=== PATIENT | female | born 1960 | race Caucasian/White ===

== ENCOUNTER 2019-05-15 00:36 | Emergency (ER) | payer MEDICAID, SELFPAY ==
[2019-05-15 00:40] VITALS: BP 158/103; PULSE 110; RESP 22; TEMP 36.7; O2SAT 97; BMI 20.1
== END 2019-05-15 01:28 | disposition home or self-care (01) ==
LOC: ER 01:10
PROVIDERS: Emergency Provider Family Medicine
DX: Z53.21 Procedure and treatment not carried out due to patient leaving prior to being seen by health care provider (principal)
CPT/HCPCS: 99281

== ENCOUNTER 2019-12-16 17:59 | Emergency (ER) | payer MEDICAID, SELFPAY ==
[2019-12-16 18:14] VITALS: BP 138/89; PULSE 146; RESP 16; TEMP 36.9; O2SAT 96; BMI 19.3
--- NOTE | 2019-12-16 18:17 | ECG_ITS ---
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 Measurements Intervals [place] Rate: 146 P: 85 HI: 120 QRS: 89 QRSD: 81 T: 80 QT: 296 QTc: 462 Interpretive Statements SINUS TACHYCARDIA, POSSIBLE ATRIAL FLUTTER NONSPECIFIC ST & T-WAVE ABNORMALITY ABNORMAL RHYTHM ECG No previous ECG available for comparison Electronically Signed On 12-16-2019 21:08:11 CDT by Tiffanie Mckeon M.D. [id number]
--- NOTE | 2019-12-16 18:17 | XRR_ITS ---
PROCEDURE INFORMATION: Exam: XR Chest, 1 View Exam date and time: 12/16/2019 6:29 PM Age: 59 years old Clinical indication: Shortness of breath; Patient HX: SOB; Additional info: Pe TECHNIQUE: Imaging protocol: XR of the chest Views: 1 view. COMPARISON: CR Ribs RIGHT w PA Chest [id number] 01/17/2019 1:27 PM FINDINGS: Lungs: Emphysematous change and mild interstitial prominence. No acute airspace disease. Pleural space: No pleural effusion. Heart/Mediastinum: No cardiomegaly. Bones/joints: Osteopenia. XR/XR chest 1V portable [id number] IMPRESSION: Emphysematous change and mild interstitial prominence. No acute airspace disease.
--- NOTE | 2019-12-16 18:19 | ED_ITS ---
HPI - Chest Pain General: Chief Complaint: Chest Pain Stated Complaint: chest pain Time Seen by Provider: 12/16/19 18:15 Source: patient Mode of arrival: ambulatory Limitations: no limitations History of Present Illness: HPI narrative: 59-year-old female who has a history of COPD states she has not had a physician in quite some time has not had any of her meds including albuterol. She had increasing productive cough with some bloody sputum and shortness of breath. She states she has felt hot but has not had an actual fever. She has had palpitation and is tachycardic here. She denies any vomiting or diarrhea. She denies any worsening or improving factors at this time. Associated symptoms: Reports dyspnea; Deny abdominal pain, fever(s), nausea or vomiting Review of Systems Const: Denies: fever(s), chills, body aches or change in appetite Eyes: Denies: blurry vision or eye discomfort ENMT: Denies: throat pain or dental pain Card: Denies: chest pain Resp: Reports: dyspnea, productive cough and wheezing GI: Denies: abdominal pain, nausea, vomiting or diarrhea : Denies: dysuria Musc: Denies: neck pain or back pain Skin/Breast: Denies: rash Neuro: Denies: headache(s) Psych: Denies: depression Henry/Lymph: Denies: easy bruising All/Imm: Denies: urticaria PFSH ED PFSH: Social History Smoking and tobacco status: current every day smoker Physical Exam Const: COMMON NORMALS: no acute distress, patient oriented x3 and healthy appearing HENMT: COMMON NORMALS: normocephalic and atraumatic HEAD & SCALP: normocephalic and atraumatic Eye: COMMON NORMALS: Equal, round and reactive pupils present and EOMs intact bilaterally PUPIL: Yes Equal, round and reactive pupils present Neck/C-Spine: COMMON NORMALS: full ROM and supple Chest: COMMONS NORMALS: normal inspection of the chest and normal palpation of entire chest wall Resp: COMMON NORMALS: normal respiratory effort, No retractions and No use of accessory muscles EFFORT & INSPECTION: Yes audible wheezes Cardio: COMMON NORMALS: regular rhythm and No murmurs present (Cardio) RATE: tachycardic RHYTHM: regular rhythm GI: COMMON NORMALS: Normal to inspection, nondistended, normoactive bowel sounds present, Soft to palpation, non-tender and no masses PALPATION: Yes Soft to palpation Extremity: COMMON NORMALS: normal to inspection and full ROM Neuro: COMMON NORMALS: patient oriented x3, moves all extremities and no focal motor deficits Psych: COMMON NORMALS: mental status grossly normal, Normal thought process present and cooperative THOUGHT PROCESS: Normal thought process present Skin: COMMON NORMALS: no rashes or lesions noted and no wounds GENERAL SKIN EXAM: no rashes or lesions noted Course Vital Signs: Vital signs: Vital Signs Temperature 98.0 F 12/16/19 20:44 Pulse Rate 120 H 12/16/19 20:44 Respiratory Rate 20 H 12/16/19 20:44 Blood Pressure 142/82 12/16/19 20:44 Pulse Oximetry 96 12/16/19 20:44 MDM - Chest Pain MDM Narrative: Medical decision making narrative: Patient presents with shortness of breath likely from COPD exacerbation. She has been noncompliant on her meds and still smoking. Will place her on steroids along with Advair. She feels much improved after breathing treatments and is requesting discharge. Her heart rate has improved but she is still bradycardic likely from albuterol. CT scan showed no signs of pneumonia or pulmonary embolism. We will try to get patient a PCP and she is to return if worsening. Lab Data: Labs: Lab Results 12/16/19 12/16/19 12/16/19 Range/Units 18:30 18:30 18:30 WBC 10.0 (4.0-10.0) 10^3/ uL RBC 4.31 (4.1-5.3) 10^6/u L Hgb 15.9 H (11.5-15.3) g/dL Hct 43.9 (37.0-47.0) % MCV 101.9 H (81-99) fL MCH 36.9 H (28.0-34.0) pg MCHC 36.2 H (30.0-36.0) g/dL RDW 11.9 L (12.1-15.1) % Plt Count 215 (130-400) 10^3/c mm MPV 9.9 (7.4-10.4) fL Neut % (Auto) 66.2 % Lymph % (Auto) 26.3 % Lipscomb % (Auto) 4.8 % Eos % (Auto) 1.4 % Baso % (Auto) 1.1 % Neut # (Auto) 6.64 (1.8-7.7) 10^3/u L Lymph # (Auto) 2.6 (0.8-4.8) 10^3/u L Lipscomb # (Auto) 0.5 (0.2-0.9) 10^3/u L Eos # (Auto) 0.1 (0.0-0.8) 10^3/u L Baso # (Auto) 0.1 (0.0-0.1) 10^3/u L Nucleated RBC % (a uto) 0 % Nucleated RBCs # 0.0 /100WBC Sodium 132 L (136-145) mmol/L Potassium 2.9 L (3.5-5.1) mmol/L Chloride 92 L (98-107) mmol/L Carbon Dioxide 26 (22-29) mmol/L Anion Gap 16.9 (5-19) BUN 6 (6-20) mg/dL Creatinine 0.6 (0.5-0.9) mg/dL GFR Calculation 103.0 (90-130) mL/min Glucose 140 H (65-115) mg/dL Calculated Osmolal ity 272 L (285-295) mOsm/k g Calcium 10.8 H (8.5-10.5) mg/dL Total Bilirubin 1.2 (0.15-1.2) mg/dL AST 667 H (0-32) U/L ALT 218 H (0-33) U/L Alkaline Phosphata se 119 H (35-105) IU/L Troponin T Baselin e 6 (0-10) ng/L NT-Pro-B Natriuret Pep 617 H (0-125) pg/mL Total Protein 8.0 (6.6-8.7) g/dL Albumin 5.0 (3.5-5.2) g/dL Globulin 3.0 (1.3-4.6) g/dL Urine Opiates Scre en (Negative) ng/mL Ur Barbiturates Sc reen (Negative) ng/mL Ur Phencyclidine S crn (Negative) ng/mL Ur Amphetamines Sc reen (Negative) ng/mL U Benzodiazepines Scrn (Negative) ng/mL Urine Cocaine Scre en (Negative) ng/mL U Marijuana (THC) Screen (Negative) ng/mL 12/16/19 Range/Units 19:10 WBC (4.0-10.0) 10^3/ uL RBC (4.1-5.3) 10^6/u L Hgb (11.5-15.3) g/dL Hct (37.0-47.0) % MCV (81-99) fL MCH (28.0-34.0) pg MCHC (30.0-36.0) g/dL RDW (12.1-15.1) % Plt Count (130-400) 10^3/c mm MPV (7.4-10.4) fL Neut % (Auto) % Lymph % (Auto) % Lipscomb % (Auto) % Eos % (Auto) % Baso % (Auto) % Neut # (Auto) (1.8-7.7) 10^3/u L Lymph # (Auto) (0.8-4.8) 10^3/u L Lipscomb # (Auto) (0.2-0.9) 10^3/u L Eos # (Auto) (0.0-0.8) 10^3/u L Baso # (Auto) (0.0-0.1) 10^3/u L Nucleated RBC % (a uto) % Nucleated RBCs # /100WBC Sodium (136-145) mmol/L Potassium (3.5-5.1) mmol/L Chloride (98-107) mmol/L Carbon Dioxide (22-29) mmol/L Anion Gap (5-19) BUN (6-20) mg/dL Creatinine (0.5-0.9) mg/dL GFR Calculation (90-130) mL/min Glucose (65-115) mg/dL Calculated Osmolal ity (285-295) mOsm/k g Calcium (8.5-10.5) mg/dL Total Bilirubin (0.15-1.2) mg/dL AST (0-32) U/L ALT (0-33) U/L Alkaline Phosphata se (35-105) IU/L Troponin T Baselin e (0-10) ng/L NT-Pro-B Natriuret Pep (0-125) pg/mL Total Protein (6.6-8.7) g/dL Albumin (3.5-5.2) g/dL Globulin (1.3-4.6) g/dL Urine Opiates Scre en Negative (Negative) ng/mL Ur Barbiturates Sc reen Negative (Negative) ng/mL Ur Phencyclidine S crn Negative (Negative) ng/mL Ur Amphetamines Sc reen Negative (Negative) ng/mL U Benzodiazepines Scrn Negative (Negative) ng/mL Urine Cocaine Scre en Negative (Negative) ng/mL U Marijuana (THC) Screen Negative (Negative) ng/mL Imaging Data^: CT Chest: Radiologist's impression: [facility] [address] [place] [address] CT Scan Report Signed Patient: Susie Bassett Unit #: [id number] : 1960 Age/Sex: 59 / F ADM Date: 12/16/19 Loc: ER Room/Bed: Attending Dr: Ordering Provider/Ordering MD: Radha Youngblood MD Date of Service: 12/16/19 Procedure(s): CT angio chest PE protcl [id number] Accession Number(s): [id number] Report Number: [id number] PROCEDURE INFORMATION: Exam: CT Angiography Chest With Contrast Exam date and time: 12/16/2019 6:34 PM Age: 59 years old Clinical indication: Angina and cough and shortness of breath; Additional info: Pe TECHNIQUE: Imaging protocol: Computed tomographic angiography of the chest with intravenous contrast. 3D rendering: MIP and/or 3D reconstructed images were created by the technologist. Radiation optimization: All CT scans at this facility use at least one of these dose optimization techniques: automated exposure control; mA and/or kV adjustment per patient size (includes targeted exams where dose is matched to clinical indication); or iterative reconstruction. Contrast material: OMNI 350; Contrast volume: 125 ml; Contrast route: INTRAVENOUS (IV); COMPARISON: CR XR chest 1V portable [id number] 12/16/2019 6:21 PM RADIATION DOSE METRICS: Total DLP (mGy-cm): 805.06 FINDINGS: Limitations: Pulmonary artery opacification is somewhat suboptimal due to timing of contrast injection. Pulmonary arteries: There is no evidence of filling defects within the pulmonary arterial circulation to suggest pulmonary embolism. Aorta: Unremarkable. No aortic aneurysm. No aortic dissection. Superior vena cava: There appears to be narrowing of the inferior aspect of the superior vena cava with demonstration of collateral flow via the azygos and dedra azygous veins. Lungs: There is moderate diffuse centrilobular emphysema with an upper lobe predominance. There is mild diffuse bronchial wall thickening in keeping with some chronic bronchitis. Pleural space: Unremarkable. No pneumothorax. No pleural effusion. Heart: Unremarkable. No cardiomegaly. No pericardial effusion. Lymph nodes: Unremarkable. No enlarged lymph nodes. Bones/joints: Unremarkable. No acute fracture. Soft tissues: Unremarkable. CT/CT angio chest PE protcl [id number] IMPRESSION: 1. Mild chronic bronchitis. 2. Centrilobular emphysema. 3. No evidence of pulmonary embolism. 4. Question of stenosis of the superior vena cava. EKG Data^: EKG 1: Attestation: I personally reviewed and interpreted this EKG as follows: EKG interpretation date: 12/16/19 EKG interpretation time: 18:10 Interpretation: sinus tach hr [address] or t wave abnormalities qrs 81 qtc 380 Discharge Plan Discharge Patient Disposition: Home Clinical Impression: COPD exacerbation Condition: Stable Prescriptions: New Keflex 500 mg capsule 500 mg PO Q6H 7 Days Qty: 28 RF: 0 prednisone 50 mg tablet 50 mg PO DAILY Qty: 5 RF: 0 albuterol sulfate 90 mcg/actuation HFA aerosol inhaler 2 inh INHALATION Q6H Qty: 8 RF: 1 Advair Diskus 250-50 mcg/dose blister with device 1 inh INHALATION BID Qty: 60 RF: 1 Spiriva Respimat 2.5 mcg/actuation mist 2 inh INHALATION DAILY Qty: 4 RF: 1 No Action Spiriva Respimat 1.25 mcg/actuation Mist INHALATION RF: 0 Discharge Orders: Discharge Order (Routine); Ordered 12/16/19 Ordered By: Radha Youngblood Discharge Diet: Advance as tolerated Discharge Activity: Resume usual activity Patient Instructions: Chronic Obstructive Pulmonary Disease (ED) Discharge Date/Time: 12/16/19 20:47 Coding Level of Care Code ED Cooking Teacher for Chg Fwd Exam Comprehensive
[2019-12-16] MEDS: ipratropium-albuterol 3 mL Neb INHALATION (18:39)
[2019-12-16 18:44] VITALS: PULSE 138; RESP 22; O2SAT 96
[2019-12-16 18:49] VITALS: BP 152/100; PULSE 142; PULSE 144; RESP 22; RESP 24; O2SAT 95; O2SAT 96
[2019-12-16 18:50] LABS: Basophils # 0.1 10^3/uL (0.0-0.1); Basophils % 1.1 %; Eosinophils # 0.1 10^3/uL (0.0-0.8); Eosinophils % 1.4 %; Hematocrit 43.9 % (37.0-47.0); Hemoglobin 15.9 g/dL (11.5-15.3); Lymphocytes # 2.6 10^3/uL (0.8-4.8); Lymphocytes % 26.3 %; Mean Corpuscular HGB Conc 36.2 g/dL (30.0-36.0); Mean Corpuscular Hemoglobin 36.9 pg (28.0-34.0); Mean Corpuscular Volume 101.9 fL (81-99); Mean Platelet Volume 9.9 fL (7.4-10.4); Monocytes # 0.5 10^3/uL (0.2-0.9); Monocytes % 4.8 %; Neutrophils # 6.64 10^3/uL (1.8-7.7); Neutrophils % 66.2 %; Nucleated Red Blood Cells % 0 %; Platelet Count 215 10^3/cmm (130-400); Red Blood Count 4.31 10^6/uL (4.1-5.3); Red Cell Distribution Width 11.9 % (12.1-15.1)
[2019-12-16] MEDS: iohexol 350 mg/mL 100 mL Btl 60 ML IV (19:03)
[2019-12-16] MEDS: iohexol 350 mg/mL 100 mL Btl 65 ML IV (19:04)
[2019-12-16] MEDS: sodium chloride 0.9% 1,000 ML 999 ML IV (19:10)
[2019-12-16 19:18] VITALS: BP 156/101; PULSE 148; RESP 24; O2SAT 98
[2019-12-16 19:22] LABS: Alanine Aminotransferase 218 U/L (0-33); Alkaline Phosphatase 119 IU/L (35-105); Anion Gap 16.9 (5-19); Aspartate Amino Transferase 667 U/L (0-32); Blood Urea Nitrogen 6 mg/dL (6-20); Calcium 10.8 mg/dL (8.5-10.5); Carbon Dioxide 26 mmol/L (22-29); Chloride 92 mmol/L (98-107); Glucose 140 mg/dL (65-115); NT Pro B Type Natriuretic Pept 617 pg/mL (0-125); Osmolality Calculated 272 mOsm/kg (285-295); Sodium 132 mmol/L (136-145); Total Bilirubin 1.2 mg/dL (0.15-1.2)
[2019-12-16 19:28] LABS: Potassium 2.9 mmol/L (3.5-5.1)
[2019-12-16] MEDS: LORazepam 2 mg/mL INJ 1 mL 1 MG IVP (19:37)
--- NOTE | 2019-12-16 19:37 | PC.NURSE ---
lab called critical potassium 2.9, Notified Dr. Youngblood
[2019-12-16] MEDS: potassium chloride ER 10 mEq Tablet 40 MEQ PO (19:40)
[2019-12-16 19:51] LABS: Amphetamines Screen Urine Negative (Negative); Barbiturates Screen Urine Negative (Negative); Benzodiazepines Screen Urine Negative (Negative); Cocaine Screen Urine Negative (Negative); Opiate Screen Urine Negative (Negative); PCP Screen Urine Negative (Negative); THC Screen Urine Negative (Negative)
[2019-12-16 19:57] LABS: Troponin(5th) Baseline 6 ng/L (0-10)
[2019-12-16 20:44] VITALS: BP 142/82; PULSE 120; RESP 20; TEMP 36.7; O2SAT 96
--- NOTE | 2019-12-16 20:45 | PC.NURSE ---
send out Covid test sent to lab
[2019-12-18 20:56] LABS: Quest SARS-CoV-2 RNA NOT DETECTED (NOT DETECTED)
--- NOTE | 2019-12-20 12:14 | DCPLANNER ---
community engagement manager had message to speak with patient about getting established with a primary care physician. community engagement manager called [phone], unable to speak with patient, a voice mail was left for patient to return counter caser phone call.
== END 2019-12-16 20:47 | disposition home or self-care (01) ==
PROVIDERS: Emergency Provider Emergency Medicine
DX: J44.1 Chronic obstructive pulmonary disease with (acute) exacerbation (principal); F17.210 Nicotine dependence, cigarettes, uncomplicated
CPT/HCPCS: 12345; 71045; 71275; 80053; 80306; 83880; 84484; 85025; 87635; 93005; 94640; 96361; 96374; 96375; 99283; 99284; J2060; J2930; J7030; J7611; Q9967

== ENCOUNTER 2020-05-18 08:27 | Emergency (ER) | payer MEDICAID, SELFPAY ==
[2020-05-18] VITALS (42 sets, daily range): BP systolic 162–194; BP diastolic 104–152; PULSE 88–144; RESP 15–25; TEMP 36.2; O2SAT 96–100; BMI 20.4
--- NOTE | 2020-05-18 09:15 | XR_ITS ---
WS: [id number] PORTABLE CHEST HISTORY: dyspnea/cough COMPARISON: 12/16/2019 Lungs are clear and well expanded. No pleural effusion or pneumothorax. Cardiac size: Normal. Mediastinum/Aorta: Mild atherosclerosis aorta. No osseous abnormality seen. XR/XR chest 1V portable [id number] IMPRESSION: Unremarkable portable chest.
--- NOTE | 2020-05-18 09:15 | ECG_ITS ---
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 Measurements Intervals [place] Rate: 144 P: 81 AL: 117 QRS: 78 QRSD: 85 T: 77 QT: 291 QTc: 451 Interpretive Statements SINUS TACHYCARDIA WITH SHORT AL INTERVAL, POSSIBLE ATRIAL FLUTTER NONSPECIFIC ST & T-WAVE ABNORMALITY ABNORMAL RHYTHM ECG Compared to ECG 12/16/2019 18:10:49 No significant changes Electronically Signed On 05-18-2020 20:43:20 DAIRY SUPPLIES SALES REPRESENTATIVE by Tuyet Jason M.D. [id number] f
--- NOTE | 2020-05-18 09:25 | W.ED.GENADLT ---
HPI - General Adult General: Chief complaint: General Medical Stated complaint: DIZZINESS, EXCEEDING HEART RATE, SOB Time Seen by Provider: 05/18/20 09:14 History of Present Illness: HPI narrative: 59-year-old female comes in complaining of rapid heart rate generally not feeling well epigastric discomfort. She has been drinking heavily for the last 3 days it. She denies any hematochezia melena hematemesis coffee-ground emesis. She has been lightheaded and dizzy. She denies having any chest pain. She not previously had a history of atrial fibrillation. She does have a history of severe COPD and continues to smoke. Onset (ago): day(s) Relieving factors: none Exacerbating factors: none Associated symptoms: Reports decreased appetite, dyspnea, malaise, nausea, palpitations, short of breath, vomiting and weakness; Deny chest pain, confusion, cough, diaphoresis, fevers/chills, headache(s), rash, seizures or syncope Treatments prior to arrival: none Review of Systems Const: Reports: malaise; Denies: diaphoresis ENMT: Denies: throat pain, ear or mastoid pain, nasal discharge or nasal congestion Card: Reports: palpitations; Denies: chest pain or syncope Resp: Reports: dyspnea GI: Reports: nausea and vomiting : Denies: flank pain, difficulty voiding, dysuria, urinary frequency or urinary urgency Skin/Breast: Denies: rash Neuro: Denies: headache(s) or confusion PFS ED PFSH: Social History Smoking and tobacco status: current every day smoker Physical Exam Const: COMMON NORMALS: no acute distress GENERAL APPEARANCE: cooperative and comfortable ORIENTATION/CONSCIOUSNESS: Yes awake, Yes oriented to person, Yes oriented to place and Yes oriented to time HENMT: COMMON NORMALS: normocephalic, atraumatic and hearing grossly normal bilaterally HEAD & SCALP: normocephalic and atraumatic Resp: COMMON NORMALS: normal respiratory effort, No retractions, No use of accessory muscles and clear to auscultation bilaterally AUSCULTATION: clear to auscultation bilaterally Cardio: COMMON NORMALS: regular rhythm RATE: tachycardic RHYTHM: regular rhythm GI: COMMON NORMALS: Soft to palpation and No hepatosplenomegaly present AUSCULTATION: Yes normoactive bowel sounds PALPATION: Yes Soft to palpation, No Tenderness to palpation present (GI), No Guarding due to palpation present (GI) and Yes No hepatosplenomegaly present Extremity: COMMON NORMALS: normal to inspection, capillary refill normal, no clubbing, cyanosis or edema, no calf tenderness and no pedal edema Neuro: SENSORIUM/ORIENTATION: Yes oriented to person, Yes oriented to place and Yes oriented to time Skin: COMMON NORMALS: no rashes or lesions noted GENERAL SKIN EXAM: no rashes or lesions noted Course Vital Signs: Vital signs: Vital Signs Temperature 97.1 F L 05/18/20 09:10 Pulse Rate 105 H 05/18/20 14:56 Respiratory Rate 22 H 05/18/20 14:56 Blood Pressure 162/122 05/18/20 14:56 Pulse Oximetry 98 05/18/20 14:56 MDM - General Adult MDM Narrative: Medical decision making narrative: Patient positive for methamphetamines and alcohol heart rate resolved with beta-enrique blood pressure is stable and improved she is feeling much better after fluids and discharge home start on omeprazole also metoprolol and amlodipine follow-up with your primary care doctor return if has further problems should recheck within a week to get your blood pressure reevaluated Lab Data: Labs: Lab Results 05/18/20 05/18/20 05/18/20 Range/Units 09:50 09:50 09:50 WBC 6.6 (4.0-10.0) 10^3/ uL RBC 3.99 L (4.1-5.3) 10^6/u L Hgb 14.4 (11.5-15.3) g/dL Hct 40.4 (37.0-47.0) % MCV 101.3 H (81-99) fL MCH 36.1 H (28.0-34.0) pg MCHC 35.6 (30.0-36.0) g/dL RDW 12.1 (12.1-15.1) % Plt Count 164 (130-400) 10^3/c mm MPV 9.8 (7.4-10.4) fL Neut % (Auto) 64.0 % Lymph % (Auto) 24.9 % Greene % (Auto) 8.2 % Eos % (Auto) 1.2 % Baso % (Auto) 1.5 % Neut # (Auto) 4.21 (1.8-7.7) 10^3/u L Lymph # (Auto) 1.6 (0.8-4.8) 10^3/u L Greene # (Auto) 0.5 (0.2-0.9) 10^3/u L Eos # (Auto) 0.1 (0.0-0.8) 10^3/u L Baso # (Auto) 0.1 (0.0-0.1) 10^3/u L Nucleated RBC % (a uto) 0 % Nucleated RBCs # 0.0 /100WBC Sodium 133 L (136-145) mmol/L Potassium 3.0 L (3.5-5.1) mmol/L Chloride 94 L (98-107) mmol/L Carbon Dioxide 23 (22-29) mmol/L Anion Gap 19.0 (5-19) BUN 4 L (6-20) mg/dL Creatinine 0.6 (0.5-0.9) mg/dL GFR Calculation 103.0 (90-130) mL/min Glucose 168 H (65-115) mg/dL Calculated Osmolal ity 277 L (285-295) mOsm/k g Calcium 9.4 (8.5-10.5) mg/dL Magnesium 1.2 L (1.7-2.3) mg/dL Total Bilirubin 0.9 (0.15-1.2) mg/dL AST 298 H (0-32) U/L ALT 244 H (0-33) U/L Alkaline Phosphata se 101 (35-105) IU/L Creatine Kinase 270 H (26-192) U/L Troponin T Baselin e 7 (0-10) ng/L Troponin T [address] [place] (0-10) ng/L Delta Troponin T (0-10) ABS# Total Protein 8.0 (6.6-8.7) g/dL Albumin 4.8 (3.5-5.2) g/dL Globulin 3.2 (1.3-4.6) g/dL Urine Opiates Scre en (Negative) ng/mL Ur Barbiturates Sc reen (Negative) ng/mL Ur Phencyclidine S crn (Negative) ng/mL Ur Amphetamines Sc reen (Negative) ng/mL U Benzodiazepines Scrn (Negative) ng/mL Urine Cocaine Scre en (Negative) ng/mL U Marijuana (THC) Screen (Negative) ng/mL Ethyl Alcohol < 10 (0-10) mg/dL 05/18/20 05/18/20 Range/Units 10:31 12:09 WBC (4.0-10.0) 10^3/ uL RBC (4.1-5.3) 10^6/u L Hgb (11.5-15.3) g/dL Hct (37.0-47.0) % MCV (81-99) fL MCH (28.0-34.0) pg MCHC (30.0-36.0) g/dL RDW (12.1-15.1) % Plt Count (130-400) 10^3/c mm MPV (7.4-10.4) fL Neut % (Auto) % Lymph % (Auto) % Greene % (Auto) % Eos % (Auto) % Baso % (Auto) % Neut # (Auto) (1.8-7.7) 10^3/u L Lymph # (Auto) (0.8-4.8) 10^3/u L Greene # (Auto) (0.2-0.9) 10^3/u L Eos # (Auto) (0.0-0.8) 10^3/u L Baso # (Auto) (0.0-0.1) 10^3/u L Nucleated RBC % (a uto) % Nucleated RBCs # /100WBC Sodium (136-145) mmol/L Potassium (3.5-5.1) mmol/L Chloride (98-107) mmol/L Carbon Dioxide (22-29) mmol/L Anion Gap (5-19) BUN (6-20) mg/dL Creatinine (0.5-0.9) mg/dL GFR Calculation (90-130) mL/min Glucose (65-115) mg/dL Calculated Osmolal ity (285-295) mOsm/k g Calcium (8.5-10.5) mg/dL Magnesium (1.7-2.3) mg/dL Total Bilirubin (0.15-1.2) mg/dL AST (0-32) U/L ALT (0-33) U/L Alkaline Phosphata se (35-105) IU/L Creatine Kinase (26-192) U/L Troponin T Baselin e (0-10) ng/L Troponin T [address] [place] 6.95 (0-10) ng/L Delta Troponin T -0.05 L (0-10) ABS# Total Protein (6.6-8.7) g/dL Albumin (3.5-5.2) g/dL Globulin (1.3-4.6) g/dL Urine Opiates Scre en Negative (Negative) ng/mL Ur Barbiturates Sc reen Negative (Negative) ng/mL Ur Phencyclidine S crn Negative (Negative) ng/mL Ur Amphetamines Sc reen Positive H (Negative) ng/mL U Benzodiazepines Scrn Negative (Negative) ng/mL Urine Cocaine Scre en Negative (Negative) ng/mL U Marijuana (THC) Screen Positive H (Negative) ng/mL Ethyl Alcohol (0-10) mg/dL Discharge Plan Discharge Patient Disposition: Home Clinical Impression: HTN (hypertension), Alcohol abuse, GERD (gastroesophageal reflux disease) Condition: Stable Prescriptions: New omeprazole 40 mg capsule,delayed release(DR/EC) 40 mg PO DAILY Qty: 30 RF: 0 metoprolol succinate 25 mg tablet extended release 24 hr 25 mg PO DAILY Qty: 30 RF: 0 amlodipine 5 mg tablet 5 mg PO DAILY Qty: 30 RF: 0 No Action fluticasone propion-salmeterol [Advair Diskus] 250-50 mcg/dose blister with device 1 inh INHALATION BID Qty: 60 RF: 1 Tylenol Extra Strength 500 mg Tablet 1,000 mg PO PRN RF: 0 Spiriva with HandiHaler 18 mcg capsule, w/inhalation device 1 cap INHALATION QAM RF: 0 albuterol sulfate 90 mcg/actuation HFA aerosol inhaler 2 inh INHALATION Q6H PRN (Reason: Shortness Of Breath) RF: 0 Discharge Orders: Discharge ED (Routine); Ordered 05/18/20 Ordered By: Saturnino Slaughter Discharge Diet: Usual diet Discharge Activity: Increase activity as tolerated Patient Instructions: Alcohol Abuse Coding Level of Care Code ED Revenue Audit Clerk for Cathy Donald
[2020-05-18] MEDS: famotidine 20 mg/2 mL INJ 40 MG IVP (10:00)
[2020-05-18 10:16] LABS: Basophils # 0.1 10^3/uL (0.0-0.1); Basophils % 1.5 %; Eosinophils # 0.1 10^3/uL (0.0-0.8); Eosinophils % 1.2 %; Hematocrit 40.4 % (37.0-47.0); Hemoglobin 14.4 g/dL (11.5-15.3); Lymphocytes # 1.6 10^3/uL (0.8-4.8); Lymphocytes % 24.9 %; Mean Corpuscular HGB Conc 35.6 g/dL (30.0-36.0); Mean Corpuscular Hemoglobin 36.1 pg (28.0-34.0); Mean Corpuscular Volume 101.3 fL (81-99); Mean Platelet Volume 9.8 fL (7.4-10.4); Monocytes # 0.5 10^3/uL (0.2-0.9); Monocytes % 8.2 %; Neutrophils # 4.21 10^3/uL (1.8-7.7); Nucleated Red Blood Cells % 0 %; Platelet Count 164 10^3/cmm (130-400); Red Blood Count 3.99 10^6/uL (4.1-5.3); Red Cell Distribution Width 12.1 % (12.1-15.1); White Blood Count 6.6 10^3/uL (4.0-10.0)
[2020-05-18] MEDS: folic acid 1 MG, multivitamin inj 10 ML, thiamine 100 MG in sodium chloride 0.9% 1,000 ML 252.8 MG IV (10:35)
[2020-05-18 10:39] LABS: Alanine Aminotransferase 244 U/L (0-33); Albumin Level 4.8 g/dL (3.5-5.2); Alkaline Phosphatase 101 IU/L (35-105); Aspartate Amino Transferase 298 U/L (0-32); Blood Urea Nitrogen 4 mg/dL (6-20); Calcium 9.4 mg/dL (8.5-10.5); Carbon Dioxide 23 mmol/L (22-29); Chloride 94 mmol/L (98-107); Creatine Phosphokinase 270 U/L (26-192); Globulin 3.2 g/dL (1.3-4.6); Glucose 168 mg/dL (65-115); Magnesium 1.2 mg/dL (1.7-2.3); Osmolality Calculated 277 mOsm/kg (285-295); Sodium 133 mmol/L (136-145); Total Bilirubin 0.9 mg/dL (0.15-1.2)
[2020-05-18 10:40] LABS: Alcohol Level < 10 mg/dL (0-10); Troponin(5th) Baseline 7 ng/L (0-10)
[2020-05-18 10:47] LABS: Amphetamines Screen Urine Positive (Negative); Barbiturates Screen Urine Negative (Negative); Benzodiazepines Screen Urine Negative (Negative); Cocaine Screen Urine Negative (Negative); Opiate Screen Urine Negative (Negative); PCP Screen Urine Negative (Negative); THC Screen Urine Positive (Negative)
[2020-05-18] MEDS: magnesium sulfate premix 2 GM/50 ML PIGGYBACK IV (11:07)
[2020-05-18] MEDS: sodium chloride 0.9% 1,000 ML 999 ML IV ×2 (11:07→13:09)
[2020-05-18] MEDS: potassium chloride oral liq 20 mEq/15 mL UDC 40 MEQ PO (11:08)
--- NOTE | 2020-05-18 11:15 | ECG_ITS ---
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 Measurements Intervals [place] Rate: 121 P: 76 VT: 156 QRS: 74 QRSD: 94 T: 49 QT: 315 QTc: 448 Interpretive Statements SINUS TACHYCARDIA Compared to ECG 05/18/2020 09:08:51 T-wave abnormality no longer present Electronically Signed On 05-18-2020 21:30:34 GUEST SERVICES OFFICER by Tuyet Jason M.D. [id number]
[2020-05-18 12:57] LABS: Troponin 5 2HR 6.95 ng/L (0-10)
[2020-05-18 12:58] LABS: Troponin 5 2HR Delta -0.05 ABS# (0-10)
[2020-05-18] MEDS: metoprolol tartrate 25 mg Tablet PO (13:14)
== END 2020-05-18 14:59 | disposition home or self-care (01) ==
PROVIDERS: Emergency Provider Family Medicine
DX: I10 Essential (primary) hypertension (principal); K21.9 Gastro-esophageal reflux disease without esophagitis; F10.10 Alcohol abuse, uncomplicated; F17.210 Nicotine dependence, cigarettes, uncomplicated
CPT/HCPCS: 12345; 36415; 71045; 80053; 80306; 80307; 82550; 83735; 84484; 85025; 93005; 96361; 96365; 96375; 99283; 99284; J3411; J3475; J3490; J7030

== ENCOUNTER 2021-05-17 01:21 | Emergency (ER) | payer MEDICAID, SELFPAY ==
[2021-05-17 01:29] VITALS: BP 138/82; PULSE 121; RESP 22; TEMP 36.6; O2SAT 96; BMI 22.4
--- NOTE | 2021-05-17 01:36 | XRR_ITS ---
PROCEDURE INFORMATION: Exam: XR Chest Exam date and time: 05/17/2021 1:36 AM Age: 60 years old Clinical indication: Shortness of breath; Patient HX: C/O SOB. History of copd. TECHNIQUE: Imaging protocol: XR of the chest. Views: 1 view. COMPARISON: CR XR chest 1V portable [id number] 05/18/2020 9:48 AM FINDINGS: Lungs: Right discoid atelectasis and/or scarring. Pleural spaces: Unremarkable. No pleural effusion. No pneumothorax. Heart/Mediastinum: Unremarkable. No cardiomegaly. Vasculature: Calcification of the thoracic aorta and/or great vessels consistent with atherosclerotic vessel disease. Bones/joints: Minimal S shaped scoliosis. XR/XR chest 1V portable [id number] IMPRESSION: Stable COPD .
--- NOTE | 2021-05-17 01:41 | ED_ITS ---
HPI - Abdominal Pain General: Chief Complaint: Abdominal Pain Stated Complaint: Cant Control Body Functions Time Seen by Provider: 05/17/21 01:25 Source: patient Mode of arrival: ambulatory Limitations: no limitations History of Present Illness: HPI narrative: 60-year-old female states she has hepatitis C about a 10-year history. She states she has not been following with anybody has had increased abdominal ascites over the last few months. She states has been worsening does not a PCP and wanted to get it checked out. States she has some very slight pain does have quite a bit of distention. She denies any fever states she is also had some cough denies any shortness of breath denies any worsening improving factors patient is a daily drinker states she has roughly 4-5 shots of whiskey a day. Associated Symptoms: Denies chills, dysuria and fever(s) Review of Systems Const: Denies: fever(s), chills, body aches or change in appetite Eyes: Denies: blurry vision or eye discomfort ENMT: Denies: throat pain or dental pain Card: Denies: chest pain Resp: Reports: non-productive cough GI: Reports: abdominal pain : Denies: dysuria Musc: Denies: neck pain or back pain Skin/Breast: Denies: rash Neuro: Denies: headache(s) Psych: Denies: depression Henry/Lymph: Denies: easy bruising All/Imm: Denies: urticaria PFSH ED PFSH: Social History Smoking and tobacco status: current every day smoker Physical Exam Const: COMMON NORMALS: no acute distress, patient oriented x3 and healthy appearing HENMT: COMMON NORMALS: normocephalic and atraumatic HEAD & SCALP: normocephalic and atraumatic Eye: COMMON NORMALS: Equal, round and reactive pupils present and EOMs intact bilaterally PUPIL: Yes Equal, round and reactive pupils present Neck/C-Spine: COMMON NORMALS: full ROM and supple Chest: COMMONS NORMALS: normal inspection of the chest and normal palpation of entire chest wall Resp: COMMON NORMALS: normal respiratory effort, No retractions, No use of accessory muscles and clear to auscultation bilaterally AUSCULTATION: clear to auscultation bilaterally Cardio: COMMON NORMALS: regular rate, regular rhythm and No murmurs present (Cardio) RATE: regular rate RHYTHM: regular rhythm GI: COMMON NORMALS: Soft to palpation, non-tender and no masses INSPECTION: Yes abdominal distension PALPATION: Yes Soft to palpation, No Tenderness to palpation present (GI) and Yes Ascites present Extremity: COMMON NORMALS: normal to inspection and full ROM Neuro: COMMON NORMALS: patient oriented x3, moves all extremities and no focal motor deficits Psych: COMMON NORMALS: mental status grossly normal, Normal thought process present and cooperative THOUGHT PROCESS: Normal thought process present Skin: COMMON NORMALS: no rashes or lesions noted and no wounds GENERAL SKIN EXAM: no rashes or lesions noted Course Vital Signs: Vital signs: Vital Signs Temperature 98.3 F 05/17/21 01:54 Pulse Rate 113 H 05/17/21 01:54 Respiratory Rate 22 H 05/17/21 01:29 Blood Pressure 140/76 05/17/21 01:54 Pulse Oximetry 96 05/17/21 01:54 MDM - Abdominal Pain MDM Narrative: Medical decision making narrative: Patient presents here with ascites does not have any signs of spontaneous bacterial peritonitis does not require emergent paracentesis she is well-appearing here abdominal exam here is benign no tenderness we will get her follow-up with Dr. Dumont along with outpatient drainage of her ascites she is hypokalemic we will start her on potassium she is stable for discharge and follow-up with PCP and return if worsening. Lab Data: Labs: Lab Results 05/17/21 05/17/21 01:50 02:45 WBC 13.0 10^3/uL H 10 ^3/uL (4.0-10.0) RBC 4.03 10^6/uL L 10 ^6/uL (4.1-5.3) Hgb 14.1 g/dL g/dL (11.5-15.3) Hct 38.8 % % (37.0-47.0) MCV 96.3 fl fl (81-99) MCH 35.0 pg H pg (28.0-34.0) MCHC 36.3 g/dL H g/dL (30.0-36.0) RDW 14.9 % % (12.1-15.1) Plt Count 178 10^3/cmm 10^3 /cmm (130-400) MPV 10.5 fL H fL (7.4-10.4) Neut % (Auto) 53.2 % % Lymph % (Auto) 36.1 % % [place] % (Auto) 7.1 % % Eos % (Auto) 2.1 % % Baso % (Auto) 1.3 % % Neut # (Auto) 6.93 10^3/uL 10^3 /uL (1.8-7.7) Lymph # (Auto) 4.7 10^3/uL 10^3/ uL (0.8-4.8) [place] # (Auto) 0.9 10^3/uL 10^3/ uL (0.2-0.9) Eos # (Auto) 0.3 10^3/uL 10^3/ uL (0.0-0.8) Baso # (Auto) 0.2 10^3/uL H 10^ 3/uL (0.0-0.1) Nucleated RBC % (a uto) 0 % % Nucleated RBCs # 0.0 /100WBC /100W BC Sodium 140 mmol/L mmol/L (136-145) Potassium 2.8 mmol/L L* mmo l/L (3.5-5.1) Chloride 103 mmol/L mmol/L (98-107) Carbon Dioxide 25 mmol/L mmol/L (22-29) Anion Gap 14.8 (5-19) BUN 3 mg/dL L mg/dL (6-20) Creatinine 0.5 mg/dL mg/dL (0.5-0.9) GFR Calculation 126.7 mL/min mL/m in (90-130) Glucose 133 mg/dL H mg/dL (65-115) Calculated Osmolal ity 288 mOsm/kg mOsm/ kg (285-295) Calcium 7.8 mg/dL L mg/dL (8.5-10.5) Total Bilirubin 0.9 mg/dL mg/dL (0.15-1.2) AST 167 U/L H U/L (0-32) ALT 48 U/L H U/L (0-33) Alkaline Phosphata se 133 IU/L H IU/L (35-105) Total Protein 7.5 g/dL g/dL (6.6-8.7) Albumin 3.5 g/dL g/dL (3.5-5.2) Globulin 4.0 g/dL g/dL (1.3-4.6) Lipase 51 U/L U/L (13-60) Ethyl Alcohol 293 mg/dL H mg/dL (0-10) Discharge Plan Discharge Patient Disposition: Home Clinical Impression: Hypokalemia Ascites Qualifiers: Ascites type: other type Qualified Code(s): R18.8 - Other ascites Hepatitis C Qualifiers: Viral hepatitis chronicity: chronic Hepatic coma status: without hepatic coma Qualified Code(s): B18.2 - Chronic viral hepatitis C Condition: Stable Prescriptions: New potassium chloride 40 mEq/15 mL liquid 40 meq PO BID 5 Days Qty: 150 RF: 0 No Action fluticasone propion-salmeterol [Advair Diskus] 250-50 mcg/dose blister with device 1 inh INHALATION BID Qty: 60 RF: 1 Tylenol Extra Strength 500 mg Tablet 1,000 mg PO PRN RF: 0 Spiriva with HandiHaler 18 mcg capsule, w/inhalation device 1 cap INHALATION QAM RF: 0 albuterol sulfate 90 mcg/actuation HFA aerosol inhaler 2 inh INHALATION Q6H PRN (Reason: Shortness Of Breath) RF: 0 omeprazole 40 mg capsule,delayed release(DR/EC) 40 mg PO DAILY Qty: 30 RF: 0 metoprolol succinate 25 mg tablet extended release 24 hr 25 mg PO DAILY Qty: 30 RF: 0 amlodipine 5 mg tablet 5 mg PO DAILY Qty: 30 RF: 0 Discharge Orders: Discharge ED (Routine); Ordered 05/17/21 Ordered By: Radha Youngblood Referrals: Tha Dumont MD [Physician] - 1-3 days Discharge Diet: Advance as tolerated Discharge Activity: Resume usual activity Patient Instructions: Ascites (ED) Coding Level of Care Code ED Occupational Health Technician for Chg Fwd Exam Comprehensive
[2021-05-17] MEDS: sodium chloride 0.9% 1,000 ML 999 ML IV (01:49)
[2021-05-17 01:54] VITALS: BP 140/76; PULSE 113; TEMP 36.8; O2SAT 96
[2021-05-17 02:16] LABS: Basophils # 0.2 10^3/uL (0.0-0.1); Basophils % 1.3 %; Eosinophils # 0.3 10^3/uL (0.0-0.8); Eosinophils % 2.1 %; Hematocrit 38.8 % (37.0-47.0); Hemoglobin 14.1 g/dL (11.5-15.3); Lymphocytes # 4.7 10^3/uL (0.8-4.8); Lymphocytes % 36.1 %; Mean Corpuscular HGB Conc 36.3 g/dL (30.0-36.0); Mean Corpuscular Volume 96.3 fl (81-99); Mean Platelet Volume 10.5 fL (7.4-10.4); Monocytes # 0.9 10^3/uL (0.2-0.9); Monocytes % 7.1 %; Neutrophils # 6.93 10^3/uL (1.8-7.7); Neutrophils % 53.2 %; Nucleated Red Blood Cells % 0 %; Platelet Count 178 10^3/cmm (130-400); Red Blood Count 4.03 10^6/uL (4.1-5.3); Red Cell Distribution Width 14.9 % (12.1-15.1)
[2021-05-17 02:28] LABS: Albumin Level 3.5 g/dL (3.5-5.2); Carbon Dioxide 25 mmol/L (22-29); Glomerular Filtration Rate 126.7 mL/min (90-130); Lipase 51 U/L (13-60); Total Bilirubin 0.9 mg/dL (0.15-1.2); Total Protein 7.5 g/dL (6.6-8.7)
--- NOTE | 2021-05-17 02:37 | PC.NURSE ---
bedside report received. bed low and locked, side rail up. NAD
[2021-05-17 03:11] LABS: Alanine Aminotransferase 48 U/L (0-33); Anion Gap 14.8 (5-19); Aspartate Amino Transferase 167 U/L (0-32)
[2021-05-17 03:12] LABS: Sodium 140 mmol/L (136-145)
[2021-05-17 03:13] LABS: Chloride 103 mmol/L (98-107); Potassium 2.8 mmol/L (3.5-5.1)
[2021-05-17 03:14] LABS: Alcohol Level 293 mg/dL (0-10); Alkaline Phosphatase 133 IU/L (35-105); Blood Urea Nitrogen 3 mg/dL (6-20); Calcium 7.8 mg/dL (8.5-10.5); Glucose 133 mg/dL (65-115); Osmolality Calculated 288 mOsm/kg (285-295)
[2021-05-17] MEDS: potassium chloride ER 20 mEq Tablet 40 MEQ PO (03:23)
[2021-05-17 03:24] VITALS: BP 131/99; PULSE 110; RESP 18; TEMP 36.8; O2SAT 96
[2021-05-17 03:27] LABS: Urine Color Yellow (Yellow)
[2021-05-17 03:28] LABS: Add Urine Microscopic? YES; Bilirubin Urine Neg (Negative); Blood Urine Neg (Negative); Glucose Urine UA Norm (Normal); Ketones Urine Negative (Negative); Leukocyte Esterase Urine Negative (Negative); Nitrate Urine Negative (Negative); Protein Urine Neg (Negative); Urine Appearance Hazy (CLEAR); Urobilinogen Urine 1 mg/dL (Negative); pH Urine 7 (5-7)
[2021-05-17 03:35] LABS: Add Urine Culture? No; Amorphous Sediment Urine 1+ /hpf; Bacteria Urine 1+ /hpf; RBC Urine 0-4 /hpf (0-2); Squamous Epithelial Cell Urine 15-25 /hpf (0-5); WBC Urine 0-4 /hpf (0-5)
--- NOTE | 2021-05-18 10:52 | PC.SOCIAL ---
Addendum entered by Angelina Ridley 06/14/21 17:40: Patient had a follow up appointment scheduled for 05.30.[address] Dumont - patient did attend appointment. Original Note: follow up appointment made with Dr. Dumont for 05-30 @1400. appointment date and time, along with office number and directions called and given to patient.
== END 2021-05-17 03:32 | disposition home or self-care (01) ==
PROVIDERS: Emergency Provider Emergency Medicine
DX: R18.8 Other ascites (principal); B18.2 Chronic viral hepatitis C; E87.6 Hypokalemia; F17.210 Nicotine dependence, cigarettes, uncomplicated
CPT/HCPCS: 71045; 80053; 80307; 81001; 83690; 85025; 96360; 99284; 99291; 99292; J7030

== ENCOUNTER 2021-06-11 11:54 | Emergency (ER) | payer MEDICAID, SELFPAY ==
[2021-06-11 12:35] VITALS: BP 136/77; PULSE 115; RESP 20; TEMP 36.6; O2SAT 99; BMI 22.6
[2021-06-11 14:09] LABS: Basophils # 0.1 10^3/uL (0.0-0.1); Basophils % 1.1 %; Eosinophils # 0.2 10^3/uL (0.0-0.8); Eosinophils % 1.6 %; Hematocrit 38.6 % (37.0-47.0); Hemoglobin 13.4 g/dL (11.5-15.3); Lymphocytes # 2.5 10^3/uL (0.8-4.8); Lymphocytes % 24.4 %; Mean Corpuscular HGB Conc 34.7 g/dL (30.0-36.0); Mean Corpuscular Hemoglobin 34.9 pg (28.0-34.0); Mean Corpuscular Volume 100.5 fl (81-99); Mean Platelet Volume 9.2 fL (7.4-10.4); Monocytes % 10.1 %; Neutrophils # 6.35 10^3/uL (1.8-7.7); Neutrophils % 62.6 %; Nucleated Red Blood Cells % 0 %; Platelet Count 306 10^3/cmm (130-400); Red Blood Count 3.84 10^6/uL (4.1-5.3); White Blood Count 10.2 10^3/uL (4.0-10.0)
[2021-06-11 14:24] LABS: Alanine Aminotransferase 46 U/L (0-33); Albumin Level 3.3 g/dL (3.5-5.2); Alkaline Phosphatase 135 IU/L (35-105); Anion Gap 13.4 (5-19); Aspartate Amino Transferase 131 U/L (0-32); Blood Urea Nitrogen 6 mg/dL (6-20); Calcium 8.2 mg/dL (8.5-10.5); Carbon Dioxide 27 mmol/L (22-29); Chloride 100 mmol/L (98-107); Globulin 4.3 g/dL (1.3-4.6); Glomerular Filtration Rate 126.7 mL/min (90-130); Glucose 108 mg/dL (65-115); Osmolality Calculated 282 mOsm/kg (285-295); Potassium 3.4 mmol/L (3.5-5.1); Sodium 137 mmol/L (136-145); Total Bilirubin 1.4 mg/dL (0.15-1.2); Total Protein 7.6 g/dL (6.6-8.7)
--- NOTE | 2021-06-11 16:41 | PC.NURSE ---
patient in triage asking to have IV removed so can go home. patient states im tired of waiting and ill go home and get on my cough. patient notified of risks and patient agrees. IV removed intact with no complciatons. patient ambulatory to front lobby. patient in no obivous distress upon leaving
== END 2021-06-11 16:43 | disposition left against medical advice (07) ==
PROVIDERS: Emergency Provider Family Medicine
DX: Z53.21 Procedure and treatment not carried out due to patient leaving prior to being seen by health care provider (principal)
CPT/HCPCS: 80053; 85025; 99282

== ENCOUNTER 2021-06-18 19:24 | Inpatient (IN) | payer MEDICAID, SELFPAY ==
[2021-06-18 19:39] VITALS: BP 122/73; PULSE 134; RESP 28; TEMP 36.6; O2SAT 96; BMI 23.9
--- NOTE | 2021-06-18 22:39 | W.ED.ABDPA2 ---
HPI - Abdominal Pain General: Chief Complaint: Abdominal Pain Stated Complaint: ABD PAIN, SWELLING Time Seen by Provider: 06/18/21 22:39 Source: patient and family Mode of arrival: ambulatory Limitations: no limitations History of Present Illness: Patient is a 60-year-old female with history of COPD, chronic alcohol use, hepatitis C, and liver cirrhosis with ascites presents to ED today along with her daughter for concerns of worsening abdominal pain/ascites, weakness, and rectal bleeding that she believes is related to hemorrhoids. Patient was seen here in our ED recently for ascites. She was discharged with follow-up with Dr. Dumont. She states she did complete a telehealth visit with him. She has a follow-up appointment with him tomorrow. Patient states she is continuing to feel worse and states the pressure on her abdomen is now causing urinary incontinence and fecal incontinence. She is not running fevers. Daughter denies AMS. Patient does continue to drink alcohol. MD elicited complaint: abdominal pain Onset (ago): day(s) Pain Consistency: constant Location: Diffuse Severity: severe Associated Symptoms: Reports hematochezia and fecal incontinence; Denies chills, dysuria, fever(s), nausea and vomiting Review of Systems Const: Reports: fatigue; Denies: fever(s), chills, body aches or malaise Card: Denies: chest pain Resp: Reports: dyspnea (chronic related to her COPD) GI: Reports: abdominal pain, fecal incontinence, rectal pain and hematochezia; Denies: nausea or vomiting : Reports: urinary incontinence; Denies: flank pain or dysuria Musc: Denies: neck pain, back pain, extremity pain or joint pain Skin/Breast: Denies: rash Neuro: Denies: headache(s) or dizziness [facility] ED PFSH: Social History Smoking and tobacco status: current every day smoker Alcohol intake: current Physical Exam Const: COMMON NORMALS: patient oriented x3, no limitations and alert GENERAL APPEARANCE: cooperative and in distress (appears uncomfortable) NUTRITIONAL APPEARANCE: thin ORIENTATION/CONSCIOUSNESS: Yes awake, Yes oriented to person, Yes oriented to place and Yes oriented to time HENMT: COMMON NORMALS: normocephalic and atraumatic HEAD & SCALP: normal to inspection, normocephalic and atraumatic Resp: COMMON NORMALS: normal respiratory effort Cardio: COMMON NORMALS: regular rhythm RATE: tachycardic RHYTHM: regular rhythm GI: INSPECTION: Yes abdominal distension, Yes Fluid wave present and Yes other (ascites) PERCUSSION: Fluid wave present RECTAL EXAM: other (rectal prolapse with fecal seepage) : COMMON NORMALS: Yes no CVA tenderness BLADDER/KIDNEY EXAM: Yes no CVA tenderness Back/Pelvis: COMMON NORMALS: no CVA tenderness Extremity: COMMON NORMALS: normal to inspection Neuro: IZAIAH COMA SCALE: document GCS findings [place] coma scale eye opening: Spontaneous Izaiah coma scale verbal response: Orientated Izaiah coma scale motor response: Obey commands [place] coma scale total score: 15 COMMON NORMALS: patient oriented x3, moves all extremities, no focal motor deficits and no sensory deficits noted SENSORIUM/ORIENTATION: Yes alert, Yes oriented to person, Yes oriented to place and Yes oriented to time Course Consultations: Consultation #1: Dr. Chowdhury-will see patient in the morning; didn't feel manual reduction would be successful based on the amount of ascites/pressure on abdomen; recommends steroid cream BID Consultation #2: Dr. Giraldo-accepts admission Vital Signs: Vital signs: Vital Signs Temperature 97.9 F 06/18/21 19:39 Pulse Rate 119 H 06/18/21 23:11 Respiratory Rate 22 H 06/18/21 23:11 Blood Pressure 135/78 06/18/21 23:11 Pulse Oximetry 94 06/18/21 23:11 MDM - Abdominal Pain Medical Decision Making Patient here with worsening abdominal ascites and now has a rectal prolapse. She is tachycardic with a white count of 17.3 and a lactate of 2.6. Will go ahead and start IV fluids/abx after discussing with Dr. Youngblood. He is aware of patient and agrees with plan for admission. Lab Data : 06/18/21 22:55 06/18/21 22:55 Labs/Radiology: Radiology Impressions Abdomen/Pelvis CT 06/18/21 22:49 IMPRESSION: 1. Hepatic cirrhosis associated with a large volume of ascites and small gastroesophageal varices. 2. There is mural thickening of the stomach with mucosal enhancement suggesting nonspecific gastritis. The small bowel is unremarkable as demonstrated. 3. Severe rectal prolapse identified. The distal portion of the rectum is excluded from the field of view. No acute colonic abnormality demonstrated. Source of rectal bleeding is not identified. COMMENTS: Consistent with the [employer]'s Incidental Findings Committee white paper (J Am Morris Radiol 2018): Any incidental renal lesion less than 1 cm or classified as too small to characterize, or any incidental cystic renal lesion characterized as simple-appearing, is likely benign. No follow-up imaging is recommended for these lesions per consensus recommendations based on imaging criteria. Laboratory Results WBC 17.3 10^3/uL (4.0-10.0) H 06/18/21 22:55 RBC 4.02 10^6/uL (4.1-5.3) L 06/18/21 22:55 Hgb 14.0 g/dL (11.5-15.3) 06/18/21 22:55 Hct 39.7 % (37.0-47.0) 06/18/21 22:55 MCV 98.8 fl (81-99) 06/18/21 22:55 MCH 34.8 pg (28.0-34.0) H 06/18/21 22:55 MCHC 35.3 g/dL (30.0-36.0) 06/18/21 22:55 RDW 16.7 % (12.1-15.1) H 06/18/21 22:55 Plt Count 315 10^3/cmm (130-400) 06/18/21 22:55 MPV 9.4 fL (7.4-10.4) 06/18/21 22:55 Neut % (Auto) 65.4 % 06/18/21 22:55 Lymph % (Auto) 22.0 % 06/18/21 22:55 [place] % (Auto) 10.8 % 06/18/21 22:55 Eos % (Auto) 0.8 % 06/18/21 22:55 Baso % (Auto) 0.7 % 06/18/21 22:55 Neut # (Auto) 11.31 10^3/uL (1.8-7.7) H 06/18/21 22:55 Lymph # (Auto) 3.8 10^3/uL (0.8-4.8) 06/18/21 22:55 [place] # (Auto) 1.9 10^3/uL (0.2-0.9) H 06/18/21 22:55 Eos # (Auto) 0.1 10^3/uL (0.0-0.8) 06/18/21 22:55 Baso # (Auto) 0.1 10^3/uL (0.0-0.1) 06/18/21 22:55 Nucleated RBC % (auto) 0 % 06/18/21 22:55 Nucleated RBCs # 0.0 /100WBC 06/18/21 22:55 Sodium 135 mmol/L (136-145) L 06/18/21 22:55 Potassium 3.3 mmol/L (3.5-5.1) L 06/18/21 22:55 Chloride 98 mmol/L (98-107) 06/18/21 22:55 Carbon Dioxide 24 mmol/L (22-29) 06/18/21 22:55 Anion Gap 16.3 (5-19) 06/18/21 22:55 BUN 7 mg/dL (6-20) 06/18/21 22:55 Creatinine 0.5 mg/dL (0.5-0.9) 06/18/21 22:55 GFR Calculation 126.7 mL/min (90-130) 06/18/21 22:55 Glucose 142 mg/dL (65-115) H 06/18/21 22:55 Calculated Osmolality 280 mOsm/kg (285-295) L 06/18/21 22:55 Lactic Acid 2.6 mmol/L (0.5-2.2) H 06/18/21 22:55 Calcium 8.3 mg/dL (8.5-10.5) L 06/18/21 22:55 Total Bilirubin 1.3 mg/dL (0.15-1.2) H 06/18/21 22:55 AST 118 U/L (0-32) H 06/18/21 22:55 ALT 40 U/L (0-33) H 06/18/21 22:55 Alkaline Phosphatase 159 IU/L (35-105) H 06/18/21 22:55 Ammonia 79 umol/L (11-51) H 06/18/21 22:55 Total Protein 6.9 g/dL (6.6-8.7) 06/18/21 22:55 Albumin 3.3 g/dL (3.5-5.2) L 06/18/21 22:55 Globulin 3.6 g/dL (1.3-4.6) 06/18/21 22:55 Lipase 17 U/L (13-60) 06/18/21 22:55 Ethyl Alcohol < 10 mg/dL (0-10) 06/18/21 22:55 Discharge Plan Discharge Patient Disposition: Admitted As Inpatient Clinical Impression: Chronic alcohol use, Abdominal ascites, Hep C w/o coma, chronic, COPD (chronic obstructive pulmonary disease), Rectal prolapse Condition: Stable Prescriptions: No Action fluticasone propion-salmeterol [Advair Diskus] 250-50 mcg/dose blister with device 1 inh INHALATION BID Qty: 60 1RF Tylenol Extra Strength 500 mg Tablet 1,000 mg PO PRN 0RF Spiriva with HandiHaler 18 mcg capsule, w/inhalation device 1 cap INHALATION QAM 0RF albuterol sulfate 90 mcg/actuation HFA aerosol inhaler 2 inh INHALATION Q6H PRN (Reason: Shortness Of Breath) 0RF omeprazole 40 mg capsule,delayed release(DR/EC) 40 mg PO DAILY Qty: 30 0RF metoprolol succinate 25 mg tablet extended release 24 hr 25 mg PO DAILY Qty: 30 0RF amlodipine 5 mg tablet 5 mg PO DAILY Qty: 30 0RF Coding Level of Care Code ED Mercerizer for Chg Fwd Exam Comprehensive
--- NOTE | 2021-06-18 22:49 | CTR_ITS ---
PROCEDURE INFORMATION: Exam: CT Abdomen And Pelvis With Contrast Exam date and time: 06/18/2021 10:49 PM Age: 60 years old Clinical indication: Abdominal pain; Generalized; Prior surgery; Surgery date: 6+ months; Surgery type: Hyst, bladder sling; Patient HX: Abd pain, distention, rectal bleeding HX of hep c w ascites; Additional info: Abdominal pain, ascities; Rectal prolapse TECHNIQUE: Imaging protocol: Computed tomography of the abdomen and pelvis with contrast. Radiation optimization: All CT scans at this facility use at least one of these dose optimization techniques: automated exposure control; mA and/or kV adjustment per patient size (includes targeted exams where dose is matched to clinical indication); or iterative reconstruction. Contrast material: OMNI 300; Contrast volume: 95 ml; Contrast route: INTRAVENOUS (IV); COMPARISON: CT pelvis wo con [id number] 12/29/2017 3:47 AM RADIATION DOSE METRICS: Total DLP (mGy-cm): 1231.01 FINDINGS: Lungs: Mild atelectasis at the lung bases. Liver: Liver configuration suggests hepatic cirrhosis. Simple appearing hepatic cyst measuring 10 mm noted in the left lobe of the liver. No suspicious liver lesions are identified on this single phase study. Gallbladder and bile ducts: Gallbladder is distended. No gallbladder wall thickening. Pancreas: Unremarkable. No ductal dilation. Spleen: The spleen is normal in size and appearance. Adrenal glands: Unremarkable. No mass. Kidneys and ureters: Simple appearing renal cysts, measuring up to 12 mm. No solid renal mass. No hydronephrosis. Stomach and bowel: There is mural thickening of the stomach with mucosal enhancement suggesting nonspecific gastritis. No acute abnormality/inflammatory change of the colon. Severe rectal prolapse identified. The distal portion of the rectum is excluded from the field of view. Appendix: No evidence of appendicitis. Intraperitoneal space: Large volume of ascites throughout the abdomen and pelvis. Impression Vasculature: Mild small gastroesophageal varices are noted. The aorta is atherosclerotic. No aortic aneurysm. Lymph nodes: No pathologically enlarged lymph nodes. Urinary bladder: Unremarkable as visualized. Reproductive: Status post hysterectomy. Bones/joints: Degenerative spine changes. No acute osseous abnormality. No calcified stones. No ductal dilation. Soft tissues: Unremarkable. CT/CT abdomen pelvis w con* [id number] IMPRESSION: 1. Hepatic cirrhosis associated with a large volume of ascites and small gastroesophageal varices. 2. There is mural thickening of the stomach with mucosal enhancement suggesting nonspecific gastritis. The small bowel is unremarkable as demonstrated. 3. Severe rectal prolapse identified. The distal portion of the rectum is excluded from the field of view. No acute colonic abnormality demonstrated. Source of rectal bleeding is not identified. COMMENTS: Consistent with the [employer]'s Incidental Findings Committee white paper (J Am Morris Radiol 2018): Any incidental renal lesion less than 1 cm or classified as too small to characterize, or any incidental cystic renal lesion characterized as simple-appearing, is likely benign. No follow-up imaging is recommended for these lesions per consensus recommendations based on imaging criteria.
[2021-06-18 23:00] VITALS: RESP 18
[2021-06-18] MEDS: morphine 4 mg/mL SDV 1 mL IVP (23:00)
[2021-06-18] MEDS: ondansetron 2 mg/ML SDV 2 mL 4 MG IVP (23:00)
[2021-06-18 23:02] LABS: Basophils # 0.1 10^3/uL (0.0-0.1); Basophils % 0.7 %; Eosinophils # 0.1 10^3/uL (0.0-0.8); Eosinophils % 0.8 %; Hematocrit 39.7 % (37.0-47.0); Lymphocytes # 3.8 10^3/uL (0.8-4.8); Mean Corpuscular HGB Conc 35.3 g/dL (30.0-36.0); Mean Corpuscular Hemoglobin 34.8 pg (28.0-34.0); Mean Corpuscular Volume 98.8 fl (81-99); Mean Platelet Volume 9.4 fL (7.4-10.4); Monocytes # 1.9 10^3/uL (0.2-0.9); Monocytes % 10.8 %; Neutrophils # 11.31 10^3/uL (1.8-7.7); Neutrophils % 65.4 %; Nucleated Red Blood Cells % 0 %; Platelet Count 315 10^3/cmm (130-400); Red Blood Count 4.02 10^6/uL (4.1-5.3); Red Cell Distribution Width 16.7 % (12.1-15.1); White Blood Count 17.3 10^3/uL (4.0-10.0)
[2021-06-18 23:11] VITALS: BP 135/78; PULSE 119; RESP 22; O2SAT 94
[2021-06-18] MEDS: iohexol 300 mg/mL 100 mL Btl IV (23:16)
[2021-06-18 23:26] LABS: Ammonia 79 umol/L (11-51); Lactic Sepsis W/Reflex 2.6 mmol/L (0.5-2.2)
[2021-06-18 23:44] LABS: Alanine Aminotransferase 40 U/L (0-33); Albumin Level 3.3 g/dL (3.5-5.2); Alkaline Phosphatase 159 IU/L (35-105); Anion Gap 16.3 (5-19); Aspartate Amino Transferase 118 U/L (0-32); Blood Urea Nitrogen 7 mg/dL (6-20); Calcium 8.3 mg/dL (8.5-10.5); Carbon Dioxide 24 mmol/L (22-29); Chloride 98 mmol/L (98-107); Globulin 3.6 g/dL (1.3-4.6); Glomerular Filtration Rate 126.7 mL/min (90-130); Glucose 142 mg/dL (65-115); Lipase 17 U/L (13-60); Osmolality Calculated 280 mOsm/kg (285-295); Potassium 3.3 mmol/L (3.5-5.1); Sodium 135 mmol/L (136-145); Total Bilirubin 1.3 mg/dL (0.15-1.2); Total Protein 6.9 g/dL (6.6-8.7)
[2021-06-18] MEDS: sodium chloride 0.9% 1,000 ML 1800 ML IV (23:47)
[2021-06-18] MEDS: piperacillin-tazobactam 3.375 GM in sodium chloride 0.9% (plus) 50 ML IV (23:47)
[2021-06-18 23:53] LABS: Alcohol Level < 10 mg/dL (0-10)
[2021-06-19] VITALS (14 sets, daily range): BP systolic 98–150; BP diastolic 52–83; PULSE 107–121; RESP 17–22; TEMP 36.4–36.9; O2SAT 91–97
[2021-06-19] MEDS: hydrocortisone 2.5% cream 28 gm 1 APPLIC PR (00:37)
--- NOTE | 2021-06-19 00:45 | P.HP_ITS ---
Providers/Chief Complaint Chief Complaint: ABD PAIN, SWELLING History of Present Illness Susie Bassett is a 60 year old female with a past medical history of hepatitis C, alcoholism, COPD, smoker, marijuana abuse, who presents to [facility] due to increased abdominal distention. Patient tells me that over the last month she has developed increased abdominal distention, she has been told that she has liver cirrhosis, she presented to the emergency room on May 17 for abdominal ascites, follow-up with Dr. Dumont for treatment of hepatitis C. Her last alcohol drink was 2 drinks of alcohol yesterday. Does have a history of alcohol withdrawal. She over the last few weeks has developed increasing abdominal distention, so much so that she has developed a rectal prolapse, due to severe constipation. Due to increasing abdominal distention, abdominal pain she presented the emergency room. Denies any fevers, chills, nausea, vomiting, alert oriented x3, following all commands. No complaints of hemoptysis Review of Systems Const: Denies: fever(s), chills, fatigue or malaise Eyes: Denies: change in vision or blurry vision ENMT: Denies: nasal congestion Card: Reports: swelling of feet/ankles; Denies: chest pain, palpitations, irregular heart rhythm, edema or syncope Resp: Denies: dyspnea, productive cough, non-productive cough or wheezing GI: Reports: abdominal pain, nausea and constipation; Denies: vomiting, hematemesis, diarrhea, hematochezia or melena : Denies: flank pain, dysuria or urinary frequency Musc: Reports: back pain; Denies: neck pain Skin/Breast: Denies: rash Neuro: Denies: headache(s), dizziness or vertigo Psych: Denies: anxiety, visual hallucinations, auditory hallucinations or tactile hallucinations Endo: Denies: polyuria or polydipsia Henry/Lymph: Denies: easy bruising Medications/Allergies Home Medications Medication Instructions Recorded Confirmed Last Taken Type fluticasone 250 mcg-salmeterol 50 1 inh INHALATION BID #60 each 12/16/19 05/30/21 05/17/20 Rx mcg/dose blistr powdr for see pharmacy inhalation (Advair Diskus) comment acetaminophen 500 mg tablet 1,000 mg PO PRN 05/18/20 05/30/21 Unknown History (Tylenol Extra Strength) albuterol sulfate 90 mcg/actuation 2 inh INHALATION Q6H PRN 05/18/20 05/30/21 Unknown History aerosol inhaler amlodipine 5 mg tablet 5 mg PO DAILY #30 tab 05/18/20 05/30/21 Unknown Rx metoprolol succinate 25 mg 25 mg PO DAILY #30 tab 05/18/20 05/30/21 Unknown Rx tablet,extended release 24 hr omeprazole 40 mg capsule,delayed 40 mg PO DAILY #30 cap 05/18/20 05/30/21 Unknown Rx release tiotropium bromide 18 mcg capsule 1 cap INHALATION QAM 05/18/20 05/30/21 Unknown History with inhalation device (Spiriva with HandiHaler) Allergies Allergy/AdvReac Type Severity Reaction Status Date / Time codeine Allergy ALGY-Hives Verified 05/30/21 12:12 PFSH Acute PFSH: Medical History (Updated 06/19/21 @ 00:56 by Iftikhar Giraldo MD) Alcoholism COPD (chronic obstructive pulmonary disease) Hepatitis C Liver cirrhosis Surgical History (Updated 06/19/21 @ 00:51 by Iftikhar Giraldo MD) History of hysterectomy Family History (Updated 06/19/21 @ 00:52 by Iftikhar Giraldo MD) Mother Lung cancer Father Hyperthermia Social History (Updated 06/19/21 @ 00:52 by Iftikhar Giraldo MD) Smoking and tobacco status: current every day smoker Alcohol intake: current Substance/Drug Use: current Substance/Drug use type: Marijuana Vitals/I&O/Wt Last Vital Signs Temp 97.9 F 06/18/21 19:39 Pulse 119 H 06/18/21 23:11 Resp 22 H 06/18/21 23:11 BP 135/78 06/18/21 23:11 Pulse Ox 94 06/18/21 23:11 Weight last 48 hrs Weight 61.235 kg Physical Exam Const: COMMON NORMALS: no acute distress and patient oriented x3 HENMT: COMMON NORMALS: normocephalic HEAD & SCALP: normocephalic Eye: COMMON NORMALS: Equal, round and reactive pupils present and EOMs intact bilaterally Neck/C-Spine: COMMON NORMALS: no JVD Lymph: LYMPHATIC: no lymphadenopathy noted Resp: COMMON NORMALS: normal respiratory effort, No retractions, No use of accessory muscles and clear to auscultation bilaterally AUSCULTATION: clear to auscultation bilaterally Cardio: COMMON NORMALS: no JVD, regular rate, regular rhythm, S1 normal heart sound present and S2 normal heart sound present RATE: regular rate RHYTHM: regular rhythm HEART SOUNDS: S1 normal heart sound present and S2 normal heart sound present GI: INSPECTION: Yes abdominal distension and Yes Fluid wave present AUSCULTATION: Yes normoactive bowel sounds PALPATION: Yes Soft to palpation, Yes Tenderness to palpation present (GI) and Yes Ascites present Extremity: COMMON NORMALS: capillary refill normal, no clubbing, cyanosis or edema, no calf tenderness and no pedal edema Neuro: COMMON NORMALS: patient oriented x3, CN's II-XII intact bilaterally, moves all extremities and no focal motor deficits Psych: COMMON NORMALS: mental status grossly normal Data : 06/18/21 22:55 06/18/21 22:55 A&P Assessment and plan (1) Rectal prolapse: Status: Acute (2) Abdominal ascites: Status: Acute (3) Chronic alcohol use: Status: Acute (4) Hep C w/o coma, chronic: Status: Acute (5) SBP (spontaneous bacterial peritonitis): Status: Acute (6) Hyperammonemia: Status: Acute Plan Ascites -Secondary to liver cirrhosis -Paracentesis in the morning -We will need to consult radiology -Send fluid studies Spontaneous bacterial peritonitis -Has leukocytosis, tachycardia -Pro-Alpesh, CRP pending -Cipro, Flagyl -100 g of albumin day 1 -Follow ascites evaluation as above Hyperammonemia secondary liver cirrhosis -Cannot take lactulose due to rectal prolapse -Rifaximin Liver cirrhosis -Radiographic evidence of gastric varices -Hepatitis C positive, history of alcoholism -Hep C genotype, viral load, AFP ordered -Follow INR, LFTs, albumin -Needs to follow-up with hepatology as outpatient Rectal prolapse -Dr. Chowdhury consult by the ER -Recommended conservative interventions, steroid cream -Once ascites has been drained, reduce prolapse, he will see in the morning Hepatitis C, as above Alcoholism, last alcohol drink was yesterday, [facility] protocol Full code -SCDs for DVT prophylaxis Attestations Medical Necessity Statement*: Patient requires hospitalization for ascites, SBP, elevated ammonia levels, liver cirrhosis, inpatient, greater than 2 MIDNIGHTS Coding Level of Care Code Acute Environmental Attorney for Chg Fwd History Comprehensive Exam Comprehensive Medical Decision Making High Complexity Diagnoses Rectal prolapse K62.3 Abdominal ascites R18.8 Chronic alcohol use Z72.89 Hep C w/o coma, chronic B18.2 SBP (spontaneous bacterial peritonitis) K65.2 Hyperammonemia E72.20
[2021-06-19 00:47] LABS: Reflex Lactate Order REFLEX LACTIC ORDERD
--- NOTE | 2021-06-19 01:28 | US_ITS ---
WS: [id number] ULTRASOUND-GUIDED PARACENTESIS CLINICAL INFORMATION: SBP COMPARISON: None. Procedure Informed consent: The risks, benefits, and alternatives of the procedure were discussed with the eran ent. Verbal and written consent was obtained. Timeout: A timeout was performed to confirm the correct patient, procedure, and site. Preparation: A suitable skin site was identified. The patient was prepped and draped in usual sterile fashion. Lidocaine 1% was used for local anesthesia. Catheter: 4 [place] One-step [place] Holdingseh catheter. Side: RIGHT Lower quadrant. Fluid Volume: 6600 cc yellow fluid removed Color: Clear yellow Complications: None. US/US paracentesis abd w [id number] IMPRESSION: Uncomplicated ultrasound-guided paracentesis. Removal of 6600 cc clear yellow fluid
[2021-06-19] MEDS: metroNIDAZOLE IV 500 MG/100 ML PREMIX 100 MG IV ×2 (02:00→10:41)
[2021-06-19] MEDS: pantoprazole 40 mg SDV IVP ×2 (02:01→12:21)
[2021-06-19] MEDS: morphine 4 mg/mL SDV 1 mL 2 MG IVP ×5 (02:04→21:52)
[2021-06-19] MEDS: ciprofloxacin 400 MG/200 ML PREMIX 200 MG IV (02:08)
[2021-06-19 02:20] LABS: INR 1.33 (0.8-1.2)
[2021-06-19 02:27] LABS: Lactic Acid level (Lactate) 2.3 mmol/L (0.5-2.2)
[2021-06-19 02:45] LABS: HIV 1 & 2 Antibody Non-Reactive (Non-Reactiv); HIV 1 & 2 Antigen Non-Reactive (Non-Reactiv)
[2021-06-19 02:54] LABS: Tumor Marker Alpha Fetoprotein 4.3 ng/mL (0-8.3)
[2021-06-19 03:06] LABS: Hepatitis C Virus Antibody Reactive (Nonreactive)
[2021-06-19 05:30] LABS: Add Urine Microscopic? YES; Bilirubin Urine 1+ (Negative); Blood Urine Neg (Negative); Glucose Urine UA Norm (Normal); Ketones Urine Negative (Negative); Leukocyte Esterase Urine Negative (Negative); Nitrate Urine Negative (Negative); Protein Urine 1+ (Negative); Specific Gravity, Urine 1.005 (1.005-1.030); Urine Color Yellow (Yellow); Urobilinogen Urine 4 mg/dL (Negative); pH Urine 7 (5-7)
[2021-06-19 05:31] LABS: Squamous Epithelial Cell Urine TOO NUMEROUS TO CNT /hpf (0-5); WBC Urine 0-4 /hpf (0-5)
[2021-06-19 05:32] LABS: Add Urine Culture? No; Bacteria Urine 4+ /hpf
[2021-06-19] MEDS: ondansetron 2 mg/ML SDV 2 mL 4 MG IVP (06:10)
--- NOTE | 2021-06-19 07:47 | PC.NURSE ---
report given to todd casanova.
--- NOTE | 2021-06-19 08:21 | PC.PHAR ---
pt states she takes care of her own medications-pt states she only uses 3 inhalers-pt states she just ran out of her inhalers yesterday-ext med history doesnt show when last filled-dolores from [facility] states they have never filled an inhaler for the pt-[facility] not open to verify last time filled
[2021-06-19 10:08] LABS: Body Fluid WBC 252 /uL; Monocytes # Body Fluid 0.232; RBC, Body Fluid 0 10^3/uL
[2021-06-19 10:09] LABS: Apprearance, Body Fluid CLEAR; Body Fluid Specific Gravity 1.015; Color, Body Fluid PALE YELLOW
--- NOTE | 2021-06-19 10:36 | PC.NURSE ---
PARACENTESIS JUST COMPLETED. REMOVED 5600ML OF FLUID. PATIENT TOLERATED WELL.
[2021-06-19] MEDS: multivitamin therapeutic Tablet 1 TAB PO (10:40)
[2021-06-19] MEDS: folic acid 1 mg Tablet PO (10:40)
[2021-06-19] MEDS: thiamine 100 mg Tablet PO (10:41)
[2021-06-19] MEDS: docusate sodium 100 mg Capsule PO ×2 (10:41→18:07)
[2021-06-19 10:44] LABS: Albumin Body Fluid 0.9 g/dL; Amylase Body Fluid 10 U/L; Fluid Alkaline Phos. 19 IU/L; LDH Body Fluid 52 U/L; Total Protein Body Fluid 1.6 g/dL
[2021-06-19 10:45] LABS: Cholesterol Body Fluid 15 mg/dL (0-200); Triglycerides Body Fluid 40 mg/dL (0-150); Uric Acid Body Fluid 2 mg/dL
--- NOTE | 2021-06-19 11:21 | P.PN_ITS ---
Subjective Subjective: Susie reports she is feeling better after the fluid has been removed from her abdomen. Approximately 5-1/2 L was taken off. I saw her before and after the procedure. Her rectal prolapse is also resolved. Medications: Reviewed: Yes Vitals/I&O/Wt Last Vital Signs Temp 97.6 F 06/19/21 08:00 Pulse 121 H 06/19/21 08:00 Resp 18 06/19/21 10:32 BP 150/83 06/19/21 08:00 Pulse Ox 96 06/19/21 10:32 06/18/21 06/19/21 06/19/21 22:59 06:59 14:59 Intake Total 1550 / 1550 Output Total 5600 / 5600 Balance 1550 / 1550 -5600 / -5600 Weight last 48 hrs Weight 61.235 kg Physical Exam Narrative: General exam no distress Neck is supple no lymphadenopathy thyromegaly Cardiovascular tachycardic, no murmur Lungs clear Abdomen is tight with fluid wave this morning, softer now Rectal exam demonstrated significant rectal prolapse earlier this morning, it is now resolved Extremities no cyanosis clubbing. Trace edema is present. Data : 06/18/21 22:55 06/18/21 22:55 A&P Assessment and plan (1) Abdominal ascites: Significant ascites. Paracentesis this morning removing 5.6 L Albumin was given earlier this morning, and 1 more dose around noon secondary to possibility of SBP Fluid analysis ordered along with culture, cytology Has underlying cirrhosis presumably from hepatitis C, alcohol. Discussed with her abstaining from alcohol. Hepatitis C to be addressed as an outpatient. With elevated and pneumonia, rifaximin started Status: Acute (2) SBP (spontaneous bacterial peritonitis): Cannot rule out SBP Fluid analysis culture Continue Cipro and Flagyl Status: Acute (3) Rectal prolapse: Resolved following paracentesis. Discontinue surgery consultation. Avoid constipation. Status: Acute (4) Hep C w/o coma, chronic: Outpatient follow-up Status: Acute (5) Chronic alcohol use: Avoid alcohol Monitor for withdrawal Thiamine daily Status: Acute (6) COPD (chronic obstructive pulmonary disease): No evidence of exacerbation DuoNeb as needed Status: Acute Plan Full code Attestations Medical Necessity Statement*: Needs continued hospitalization for IV antibiotics secondary to massive ascites with question of SBP. Coding Level of Care Code Acute Walking Dragline Oiler for Chg Fwd Diagnoses Abdominal ascites R18.8 SBP (spontaneous bacterial peritonitis) K65.2 Rectal prolapse K62.3 Hep C w/o coma, chronic B18.2 Chronic alcohol use Z72.89 COPD (chronic obstructive pulmonary disease) J44.9
[2021-06-19] MEDS: cefTRIAXone 2,000 MG in sodium chloride 0.9% (plus) 50 ML 100 MG IV (12:22)
[2021-06-19 17:53] LABS: Glucose Point of Care 142 mg/dL (70-110)
[2021-06-20] VITALS: BP 95/49; PULSE 107; RESP 16; O2SAT 93
[2021-06-20] MEDS: pantoprazole 40 mg SDV IVP ×2 (01:40→13:21)
[2021-06-20 03:45] VITALS: RESP 20
[2021-06-20] MEDS: morphine 4 mg/mL SDV 1 mL 2 MG IVP ×3 (03:45→13:06)
[2021-06-20 03:57] VITALS: BP 93/52; PULSE 104; RESP 18; TEMP 36.8; O2SAT 93
[2021-06-20 05:34] LABS: Basophils # 0.1 10^3/uL (0.0-0.1); Basophils % 0.8 %; Eosinophils # 0.2 10^3/uL (0.0-0.8); Eosinophils % 1.8 %; Hematocrit 30.7 % (37.0-47.0); Hemoglobin 10.5 g/dL (11.5-15.3); Lymphocytes # 2.5 10^3/uL (0.8-4.8); Lymphocytes % 29.8 %; Mean Corpuscular HGB Conc 34.2 g/dL (30.0-36.0); Mean Corpuscular Hemoglobin 35.4 pg (28.0-34.0); Mean Corpuscular Volume 103.4 fl (81-99); Mean Platelet Volume 10.2 fL (7.4-10.4); Monocytes % 11.9 %; Neutrophils # 4.66 10^3/uL (1.8-7.7); Neutrophils % 55.5 %; Nucleated Red Blood Cells % 0 %; Platelet Count 222 10^3/cmm (130-400); Red Blood Count 2.97 10^6/uL (4.1-5.3); Red Cell Distribution Width 17.4 % (12.1-15.1); White Blood Count 8.4 10^3/uL (4.0-10.0)
[2021-06-20 05:40] LABS: INR 1.55 (0.8-1.2)
[2021-06-20 05:53] LABS: Ammonia 63 umol/L (11-51)
[2021-06-20 05:56] LABS: Alanine Aminotransferase 17 U/L (0-33); Alkaline Phosphatase 75 IU/L (35-105); Blood Urea Nitrogen 6 mg/dL (6-20); Calcium 8.5 mg/dL (8.5-10.5); Carbon Dioxide 20 mmol/L (22-29); Chloride 100 mmol/L (98-107); Glomerular Filtration Rate 228.5 mL/min (90-130); Glucose 83 mg/dL (65-115); Magnesium 1.5 mg/dL (1.7-2.3); Osmolality Calculated 271 mOsm/kg (285-295); Sodium 132 mmol/L (136-145); Thyroid Stimulating Hormone 4.62 uIU/mL (0.27-4.20); Total Bilirubin 1.6 mg/dL (0.15-1.2)
[2021-06-20 06:00] LABS: Anion Gap 15.3 (5-19); Aspartate Amino Transferase 53 U/L (0-32); Potassium 3.3 mmol/L (3.5-5.1)
[2021-06-20 08:00] VITALS: BP 103/58; PULSE 99; RESP 18; TEMP 36.5; O2SAT 94
[2021-06-20] MEDS: docusate sodium 100 mg Capsule PO (09:25)
[2021-06-20] MEDS: thiamine 100 mg Tablet PO (09:25)
[2021-06-20] MEDS: multivitamin therapeutic Tablet 1 TAB PO (09:25)
[2021-06-20] MEDS: folic acid 1 mg Tablet PO (09:25)
--- NOTE | 2021-06-20 10:21 | PC.CHAP ---
Pastoral Care Encounter/Spiritual Assessment Type of Contact [] Declined database development project manager visit [] Patient/Family/Request visit [] Outpatient visit [] Follow-up visit [] Physician referral [] Code/Alert [x] Routine visit [] Staff referral [] Actively dying [] Patient sleeping [] Family support [] [] Out of room [] Palliative care [] [x] Receiving care in room [] Pre-surgical visit [] Trauma [] Long length of stay [] ICU visit [] Other: Relational/Emotional Strength [] Patient feels connected with others/family/visitors/staff [] Distress [] Loneliness/isolation [] Abandonment Spirituality of Patient [] Person of Clair [] Attends Zoroastrian of their Clair [] Believes in Prayer [] Reads Bible or Rastafarian materials [] There are Spiritual issues to be addressed General Merchandise Manager Interventions [] Prayer [] Active listening [] Non-anxious presence [] Spiritual/emotional support [] Crisis/trauma care [] Spiritual counseling [] Bereavement support [] Provided bereavement packet [] Provided Bible/devotional materials [] Provided toy/stuffed animal, coloring book to patient or family member [] Provided Communion [] Anointing/[place] [] Salvation [] Completed spiritual assessment [] Other: Impact on Illness or Injury [] Angry [] Fearful [] Anxious [] Often cries [] Exhaustion [] Unable to work [] Unable to attend sabianist [] Unable to walk/stand [] Unable to read [] Unable to drive [] Unable to eat/drink [] Unable to sleep [] Unable to be with family [] Patient intubated [] Other: Summary Time spent with patient
[2021-06-20] MEDS: spironolactone 25 mg Tablet PO (11:04)
[2021-06-20] MEDS: magnesium sulfate premix 2 GM/50 ML PIGGYBACK IV (11:04)
[2021-06-20 12:00] VITALS: BP 102/62; PULSE 101; RESP 12; TEMP 36.9; O2SAT 91
--- NOTE | 2021-06-20 12:22 | PM.DCS ---
Discharge Providers Date of Admission: 06/19/21 01:28 Date of Discharge: June 20, 2021 Attending Provider at Admission: Iftikhra Giraldo MD Attending Provider at Discharge: Finesse Gramajo MD Diagnoses at Discharge Discharge Diagnosis (1) Abdominal ascites: Status: Acute (2) SBP (spontaneous bacterial peritonitis): Status: Acute (3) Rectal prolapse: Status: Acute (4) Hep C w/o coma, chronic: Status: Acute (5) Chronic alcohol use: Status: Acute (6) COPD (chronic obstructive pulmonary disease): Status: Acute Reason for Visit Reason for Visit: ABD PAIN, SWELLING Hospital Course Hospital Course Susie is a 60-year-old white female who presented to the hospital with abdominal pain, rectal prolapse, and marked ascites. She had a history of liver disease likely secondary to alcoholism as well as hepatitis C. Secondary to concern of SBP on admission she was placed on IV antibiotics. Radiology was consulted for paracentesis. This was performed the day after admission yielding almost 6 L of fluid. PMN count was less than 250. Culture was pending at time of discharge. TSH was checked and minimally elevated at 4.62. This can be evaluated further as an outpatient. aFP was normal. Bilirubin 1.3 on admission, 1.6 on discharge. Ammonia slight elevation at 63 on discharge. AST and ALT 53 and 17 respectively at discharge. INR elevated at 1.55. Hemoglobin 10.5 and discharge. It was thought she was hemoconcentrated on admission with a white blood cell count of 17.3, hemoglobin of 14, and platelet count of 315. Abdominal pelvic CT done on admission demonstrated prolapse of the rectum, hepatic cirrhosis with large volume ascites, small gastroesophageal varices, some thickening of the stomach with possible gastritis. After paracentesis the patient did quite well. Pain improved significantly. White blood cell count decreased. She was never febrile. Aldactone was started, and fluid restriction discussed. By June 20 she was wishing to go home. We discussed appropriate follow-up. Mild hypokalemia and hypomagnesemia was supplemented prior to discharge. Rectal prolapse had resolved after paracentesis. Culture of ascitic fluid was negative at discharge. However, she will complete 5 days of Cipro secondary to overall concern on presentation. She should notify her primary for any recurrence of her prolapse. I discussed with her the great importance of stopping drinking, avoiding all anti-inflammatories, and not smoking. Physical Exam Narrative: General exam no distress Neck is supple Cardiovascular regular rate rhythm Lungs are clear without wheezing or crackles Abdomen demonstrate slight fluid distention but much softer than on admission Extremities no cyanosis clubbing or edema Discharge Data Studies Completed and Pending Completed Studies During Hospitalization Category Date Time Status CT abdomen pelvis w con* [id number] Urgent Cat Scan 06/18/21 22:49 Completed US paracentesis abdomen [US paracentesis abd w [id number]] Ultrasound 06/19/21 01:28 Completed Urgent Pending at discharge Category Date Time Status Ammonia AM LABS Lab 06/21/21 04:00 Ordered Ammonia AM LABS Lab 06/22/21 04:00 Ordered Anaerobic Culture Routine Lab 06/19/21 09:40 Results Body Fluid Culture & GS Routine Lab 06/19/21 09:40 Results Complete Blood Count w/Auto AM LABS Lab 06/21/21 04:00 Ordered Complete Blood Count w/Auto AM LABS Lab 06/22/21 04:00 Ordered Comprehensive Metabolic Panel AM LABS Lab 06/21/21 04:00 Ordered Comprehensive Metabolic Panel AM LABS Lab 06/22/21 04:00 Ordered Hemoglobin A1C AM LABS Lab 06/20/21 04:27 Received Hepatitis C Genotype RNA Stat Lab 06/19/21 01:42 Received Hepatitis C RNA Viral Load Qnt Stat Lab 06/19/21 01:42 Received Magnesium AM LABS Lab 06/21/21 04:00 Ordered Magnesium AM LABS Lab 06/22/21 04:00 Ordered Mycobacteria, Culture w/Fluor Routine Lab 06/19/21 09:40 Received Prothrombin Time INR AM LABS Lab 06/21/21 04:00 Ordered Cytology [PTH] Routine Pth 06/19/21 11:30 Received Radiology Impressions Abdomen/Pelvis CT 06/18/21 22:49 IMPRESSION: 1. Hepatic cirrhosis associated with a large volume of ascites and small gastroesophageal varices. 2. There is mural thickening of the stomach with mucosal enhancement suggesting nonspecific gastritis. The small bowel is unremarkable as demonstrated. 3. Severe rectal prolapse identified. The distal portion of the rectum is excluded from the field of view. No acute colonic abnormality demonstrated. Source of rectal bleeding is not identified. COMMENTS: Consistent with the [employer]'s Incidental Findings Committee white paper (J Am Morris Radiol 2018): Any incidental renal lesion less than 1 cm or classified as too small to characterize, or any incidental cystic renal lesion characterized as simple-appearing, is likely benign. No follow-up imaging is recommended for these lesions per consensus recommendations based on imaging criteria. Paracentesis Ultrasound 06/19/21 01:28 IMPRESSION: Uncomplicated ultrasound-guided paracentesis. Removal of 6600 cc clear yellow fluid Laboratory Results WBC 8.4 10^3/uL (4.0-10.0) 06/20/21 04:27 RBC 2.97 10^6/uL (4.1-5.3) L 06/20/21 04:27 Hgb 10.5 g/dL (11.5-15.3) L 06/20/21 04:27 Hct 30.7 % (37.0-47.0) L 06/20/21 04:27 MCV 103.4 fl (81-99) H 06/20/21 04:27 MCH 35.4 pg (28.0-34.0) H 06/20/21 04:27 MCHC 34.2 g/dL (30.0-36.0) 06/20/21 04:27 RDW 17.4 % (12.1-15.1) H 06/20/21 04:27 Plt Count 222 10^3/cmm (130-400) 06/20/21 04:27 MPV 10.2 fL (7.4-10.4) 06/20/21 04:27 Neut % (Auto) 55.5 % 06/20/21 04:27 Lymph % (Auto) 29.8 % 06/20/21 04:27 [place] % (Auto) 11.9 % 06/20/21 04:27 Eos % (Auto) 1.8 % 06/20/21 04:27 Baso % (Auto) 0.8 % 06/20/21 04:27 Neut # (Auto) 4.66 10^3/uL (1.8-7.7) 06/20/21 04:27 Lymph # (Auto) 2.5 10^3/uL (0.8-4.8) 06/20/21 04:27 [place] # (Auto) 1.0 10^3/uL (0.2-0.9) H 06/20/21 04:27 Eos # (Auto) 0.2 10^3/uL (0.0-0.8) 06/20/21 04:27 Baso # (Auto) 0.1 10^3/uL (0.0-0.1) 06/20/21 04:27 Nucleated RBC % (auto) 0 % 06/20/21 04:27 Nucleated RBCs # 0.0 /100WBC 06/20/21 04:27 PT 18.90 SECONDS (12.1-14.9) H 06/20/21 04:27 INR 1.55 (0.8-1.2) H 06/20/21 04:27 Sodium 132 mmol/L (136-145) L 06/20/21 04:27 Potassium 3.3 mmol/L (3.5-5.1) L 06/20/21 04:27 Chloride 100 mmol/L (98-107) 06/20/21 04:27 Carbon Dioxide 20 mmol/L (22-29) L 06/20/21 04:27 Anion Gap 15.3 (5-19) 06/20/21 04:27 BUN 6 mg/dL (6-20) 06/20/21 04:27 Creatinine 0.3 mg/dL (0.5-0.9) L 06/20/21 04:27 GFR Calculation 228.5 mL/min (90-130) H 06/20/21 04:27 Glucose 83 mg/dL (65-115) 06/20/21 04:27 POC Glucose 142 mg/dL (70-110) H 06/19/21 17:48 Calculated Osmolality 271 mOsm/kg (285-295) L 06/20/21 04:27 Lactic Acid 2.6 mmol/L (0.5-2.2) H 06/18/21 22:55 Lactic Acid (Sepsis) 2.3 mmol/L (0.5-2.2) H 06/19/21 01:42 Calcium 8.5 mg/dL (8.5-10.5) 06/20/21 04:27 Magnesium 1.5 mg/dL (1.7-2.3) L 06/20/21 04:27 Total Bilirubin 1.6 mg/dL (0.15-1.2) H 06/20/21 04:27 AST 53 U/L (0-32) H 06/20/21 04:27 ALT 17 U/L (0-33) 06/20/21 04:27 Alkaline Phosphatase 75 IU/L (35-105) 06/20/21 04:27 Ammonia 63 umol/L (11-51) H 06/20/21 04:27 Total Protein 6.0 g/dL (6.6-8.7) L 06/20/21 04:27 Albumin 4.0 g/dL (3.5-5.2) 06/20/21 04:27 Globulin 2.0 g/dL (1.3-4.6) 06/20/21 04:27 Lipase 17 U/L (13-60) 06/18/21 22:55 Tumor Marker AFP 4.3 ng/mL (0-8.3) 06/19/21 01:42 TSH 4.62 uIU/mL (0.27-4.20) H 06/20/21 04:27 Urine Color Yellow (Yellow) 06/19/21 05:10 Urine Appearance Sl cloudy (CLEAR) A 06/19/21 05:10 Urine pH 7 (5-7) 06/19/21 05:10 Ur Specific [place] 1.005 (1.005-1.030) 06/19/21 05:10 Urine Protein 1+ (Negative) H 06/19/21 05:10 Urine Glucose (UA) Norm (Normal) 06/19/21 05:10 Urine Ketones Negative (Negative) 06/19/21 05:10 Urine Blood Neg (Negative) 06/19/21 05:10 Urine Nitrate Negative (Negative) 06/19/21 05:10 Urine Bilirubin 1+ (Negative) H 06/19/21 05:10 Urine Urobilinogen 4 mg/dL (Negative) H 06/19/21 05:10 Ur Leukocyte Esterase Negative (Negative) 06/19/21 05:10 Urine RBC 5-10 /hpf (0-2) H 06/19/21 05:10 Urine WBC 0-4 /hpf (0-5) H 06/19/21 05:10 Ur Squamous Epith Cells Too numerous to cnt /hpf (0-5) H 06/19/21 05:10 Amorphous Sediment Not Reportable 06/19/21 05:10 Urine Bacteria 4+ /hpf (NONE) H 06/19/21 05:10 Fluid Color Pale yellow 06/19/21 09:40 Fluid Appearance Clear 06/19/21 09:40 Fluid Specific Grav 1.015 06/19/21 09:40 Fluid pH 8.0 06/19/21 09:40 Fluid WBC 252 /uL 06/19/21 09:40 Fluid RBC 0 10^3/uL 06/19/21 09:40 Fld Polynuclear WBCs # 0.020 06/19/21 09:40 Fld Polynuclear WBCs % 8.000 % 06/19/21 09:40 Fl Mononucl WBCs #(Auto) 0.232 06/19/21 09:40 Fl Mononuclear % Auto 92.000 % 06/19/21 09:40 Fluid Glucose 113.0 mg/dL 06/19/21 09:40 Fluid Total Protein 1.6 g/dL 06/19/21 09:40 Fluid Albumin 0.9 g/dL 06/19/21 09:40 Fluid LDH 52 U/L 06/19/21 09:40 Fluid Amylase 10 U/L 06/19/21 09:40 Fluid Alk Phosphatase 19 IU/L 06/19/21 09:40 Fluid Cholesterol 15 mg/dL (0-200) 06/19/21 09:40 Fluid Triglycerides 40 mg/dL (0-150) 06/19/21 09:40 Fluid Uric Acid 2 mg/dL 06/19/21 09:40 Ethyl Alcohol < 10 mg/dL (0-10) 06/18/21 22:55 Hepatitis C Antibody Reactive (Nonreactive) H 06/19/21 01:42 HCV RNA Qnt PCR Amp&Det Cancelled 06/19/21 03:08 HCV RNA (PCR) IUs/ml Cancelled 06/19/21 03:08 HCV RNA (PCR) IU log10 Cancelled 06/19/21 03:08 HIV 1&2 Ab & HIV 1 Ag Non-reactive (Non-Reactiv) 06/19/21 01:42 HIV 1&2 Antibody Non-reactive (Non-Reactiv) 06/19/21 01:42 Vitals Last Vital Signs Temp 98.5 F 06/20/21 12:00 Pulse 101 H 06/20/21 12:00 Resp 12 06/20/21 12:00 BP 102/62 06/20/21 12:00 Pulse Ox 91 06/20/21 12:00 Discharge Plan Discharge Patient Disposition: Home Condition: Stable Prescriptions: New thiamine mononitrate (vit B1) [Vitamin B-1 (mononitrate)] 100 mg Tablet 100 mg PO DAILY Qty: 30 0RF ciprofloxacin HCl [Cipro] 500 mg tablet 500 mg PO BID Qty: 10 0RF Xifaxan 550 mg Tablet 550 mg PO BID Qty: 60 0RF spironolactone 25 mg Tablet 25 mg PO BID Qty: 60 0RF pantoprazole [Protonix] 40 mg tablet,delayed release (DR/EC) 40 mg PO BID Qty: 60 0RF Continued fluticasone propion-salmeterol [Advair Diskus] 250-50 mcg/dose blister with device 1 inh INHALATION BID Qty: 60 1RF acetaminophen [Tylenol Extra Strength] 500 mg Tablet 1,000 mg PO Q6H PRN (Reason: Pain) 0RF Spiriva with HandiHaler 18 mcg capsule, w/inhalation device 1 cap INHALATION QAM 0RF albuterol sulfate 90 mcg/actuation HFA aerosol inhaler 2 inh INHALATION Q6H PRN (Reason: Shortness Of Breath) 0RF Discharge Orders: Discharge Order (Routine); Ordered 06/20/21 Ordered By: Finesse Gramajo Referrals: Trenton Alas DO [Physician] - 06/27/21 2:30 pm (New patient appointment) Tha Dumont MD [Physician] - 06/28/21 11:00 am Discharge Diet: Low Salt Discharge Activity: Increase activity as tolerated Patient Instructions: Opioid Safety Activity Restrictions/Additional Instructions: Avoid all alcohol. Return for any concerns. Take all medicine as prescribed. Follow-up with primary care provider as documented. CBC and CMP on follow-up. Follow up with Dr. Dumont as an outpatient for your liver disease. Your Aldactone dose in the may need to be adjusted by your primary care provider as an outpatient. Continue to restrict your fluids to less than 1200 cc/day. Return for any fever or worsening abdominal pain. Discharge Attestations Time Spent in Discharge Care*: greater than 30 min Quality Metrics Clinical Quality Measures [ No reported AMI, CVA or VTE this stay] Coding Level of Care Code Acute Chg FW DC note Diagnoses Abdominal ascites R18.8 SBP (spontaneous bacterial peritonitis) K65.2 Rectal prolapse K62.3 Hep C w/o coma, chronic B18.2 Chronic alcohol use Z72.89 COPD (chronic obstructive pulmonary disease) J44.9
[2021-06-20] MEDS: cefTRIAXone 2,000 MG in sodium chloride 0.9% (plus) 50 ML 100 MG IV (13:06)
[2021-06-20 19:37] LABS: HEP C RNA Viral Load Quant 286000 IU/mL (NOT DETECTED); HEP C RNA Viral Load Quant 5.46 Log IU/mL (NOT DETECTED)
[2021-06-20 21:07] LABS: Estmated Average Glucose 100; Hemoglobin A1C 5.1 % (4.0-6.0)
[2021-06-24 22:32] LABS: Hepatitis C Genotype RNA 1b
== END 2021-06-20 14:19 | disposition home or self-care (01) | DRG 372 ==
LOC: ER 06-19 05:18 → ER IP 06-19 07:04 → MEDSURG 06-19 07:04
PROVIDERS: Admitting Provider Family Medicine; Emergency Provider Physician Assistant; Visit Provider Internal Medicine
DX: K65.2 Spontaneous bacterial peritonitis (principal); I85.10 Secondary esophageal varices without bleeding; J44.9 Chronic obstructive pulmonary disease, unspecified; Z79.51 Long term (current) use of inhaled steroids; F10.20 Alcohol dependence, uncomplicated; K70.31 Alcoholic cirrhosis of liver with ascites; K29.20 Alcoholic gastritis without bleeding; B18.2 Chronic viral hepatitis C; F17.210 Nicotine dependence, cigarettes, uncomplicated; K62.3 Rectal prolapse; F12.10 Cannabis abuse, uncomplicated; K59.00 Constipation, unspecified; K72.90 Hepatic failure, unspecified without coma
CPT/HCPCS: 36415; 36416; 49083; 74177; 80053; 80307; 80500; 81001; 82042; 82105; 82140; 82150; 82465; 82945; 82962; 83036; 83605; 83615; 83690; 83735; 83986; 84075; 84157; 84315; 84443; 84478; 84560; 85025; 85610; 86803; 87015; 87070; 87075; 87116; 87205; 87206; 87522; 87801; 87806; 87902; 88112; 88305; 89050; 96365; 96372; 96375; 99285; C9113; J0696; J0744; J2270; J2405; J2543; J3411; J3475; J7030; P9047; Q9967; S0030

== ENCOUNTER → 2021-06-27 15:34 | Outpatient (BNVA) | payer MEDICAID, SELFPAY | PROVIDERS: Visit Provider Family Medicine | DX: B18.2 Chronic viral hepatitis C (principal); E72.20 Disorder of urea cycle metabolism, unspecified; E83.42 Hypomagnesemia; E87.6 Hypokalemia; J44.9 Chronic obstructive pulmonary disease, unspecified; R18.8 Other ascites; Z72.89 Other problems related to lifestyle; K74.60 Unspecified cirrhosis of liver; Z68.22 Body mass index [BMI] 22.0-22.9, adult; F17.210 Nicotine dependence, cigarettes, uncomplicated | CPT/HCPCS: 80053; 83735; 84100; 85025 ==

== ENCOUNTER 2021-07-02 08:58 | Day surgery (SDC) | payer MEDICAID, SELFPAY ==
[2021-06-28 12:53] VITALS: BMI 23.6
--- NOTE | 2021-07-02 09:14 | US_ITS ---
WS: [id number] Abdominal ultrasound, limited. History: Evaluate for ascites. Comparison: 06/19/2021 All 4 quadrants are imaged by ultrasound to evaluate for ascites. Large amount of ascites noted withi n the abdomen. Abdomen is marked for Dr. Dumont prior to paracentesis. US/US abdomen limited [id number] IMPRESSION: Large amount of ascites.
[2021-07-02 10:15] VITALS: BP 111/63; PULSE 93; RESP 18; TEMP 36.4; O2SAT 98
[2021-07-02 11:53] LABS: Tumor Marker Alpha Fetoprotein 8.5 ng/mL (0-8.3)
[2021-07-03 19:37] LABS: HEP C RNA Viral Load Quant 5.94 Log IU/mL (NOT DETECTED); HEP C RNA Viral Load Quant 874000 IU/mL (NOT DETECTED)
== END 2021-07-02 11:02 | disposition home or self-care (01) ==
LOC: GILAB 09:01
PROVIDERS: PCP Nurse Practitioner Adult Health; Visit Provider Internal Medicine
PROC: (CPT 49082; principal; 2021-07-02 10:00)
DX: R18.8 Other ascites (principal)
CPT/HCPCS: 36415; 49082; 76705; 82105; 87522; 87902

== ENCOUNTER → 2021-07-24 13:30 | Outpatient (BNVA) | payer MEDICAID, SELFPAY | PROVIDERS: PCP Nurse Practitioner Adult Health; Visit Provider Family Medicine | DX: E83.42 Hypomagnesemia (principal); D69.6 Thrombocytopenia, unspecified; E87.6 Hypokalemia; J44.9 Chronic obstructive pulmonary disease, unspecified; K74.60 Unspecified cirrhosis of liver; R18.8 Other ascites | CPT/HCPCS: 80053; 83735; 84443; 85025 ==

== ENCOUNTER → 2021-08-08 14:56 | Outpatient (BNVA) | payer MEDICAID, SELFPAY | PROVIDERS: PCP Nurse Practitioner Adult Health; Visit Provider Internal Medicine | DX: B18.2 Chronic viral hepatitis C (principal) | CPT/HCPCS: 86705; 86706; 87340 ==

== ENCOUNTER 2021-09-10 14:11 | Emergency (ER) | payer MEDICAID, SELFPAY ==
[2021-09-10 14:23] VITALS: BP 118/63; PULSE 114; RESP 18; TEMP 36.6; O2SAT 95; BMI 19.7
--- NOTE | 2021-09-10 15:54 | PC.NURSE ---
Pt yelling in waiting room, states she did not have her BP taken. Pt reminded by this RN that BP and assessment completed during her triage on arrival. Pt encouraged to stay to be evaluated by physician when a ED room becomes avaliable, pt states I'm getting the hell out of here!
== END 2021-09-10 15:54 | disposition left against medical advice (07) ==
PROVIDERS: Emergency Provider Family Medicine; PCP Nurse Practitioner Adult Health
DX: Z53.21 Procedure and treatment not carried out due to patient leaving prior to being seen by health care provider (principal)
CPT/HCPCS: 99282

== ENCOUNTER 2021-09-11 11:28 | Emergency (ER) | payer MEDICAID, SELFPAY ==
--- NOTE | 2021-09-11 11:36 | ED_ITS ---
HPI - General Adult General: Chief complaint: Weakness Stated complaint: AMONIA LEVELS INCREASED Time Seen by Provider: 09/11/21 11:35 History of Present Illness: Ms. Bassett is a 61-year-old lady with history of liver cirrhosis secondary to hepatitis C (currently on treatment) and alcohol abuse who presents to the emergency department due to confusion and concern over her elevated ammonia. Symptoms have been progressive over the past few days where she has been more forgetful, confused, has had more shakiness, and more generalized weakness. She also has noticed maybe mild more abdominal fluid. Denies associated infectious symptoms or any trauma/falls. She reports compliance with her medication regimen with exception of this morning, she is having bowel movements. Overall course of symptoms has worsened. Intensity is moderate to severe. She has not recently had this severe symptoms in the past. Does have a history of paracentesis x2 with no history of SBP reported. No other specific changes in health, exacerbating, or alleviating factors identified. Onset (ago): day(s) Severity: moderate Review of Systems General: Reports: 10 or more systems reviewed and unremarkable except in HPI and below PFSH ED PFSH: Medical History Alcoholism COPD (chronic obstructive pulmonary disease) Hepatitis C Liver cirrhosis Surgical History History of hysterectomy Family History Mother Lung cancer Father Hyperthermia Social History Smoking and tobacco status: current every day smoker cigarettes Alcohol intake: current Alcohol intake frequency: few times a week Physical Exam Const: COMMON NORMALS: alert GENERAL APPEARANCE: cooperative and well developed HENMT: COMMON NORMALS: normocephalic and atraumatic HEAD & SCALP: normocephalic and atraumatic Eye: COMMON NORMALS: conjunctivae normal CONJUNCTIVA: Yes conjunctivae normal SCLERA: sclerae normal Neck/C-Spine: COMMON NORMALS: supple GENERAL: Yes trachea midline Resp: COMMON NORMALS: normal respiratory effort EFFORT & INSPECTION: Yes able to speak in complete sentences Cardio: COMMON NORMALS: regular rate and regular rhythm RATE: regular rate RHYTHM: regular rhythm GI: COMMON NORMALS: Soft to palpation PALPATION: Yes Soft to palpation and No Tenderness to palpation present (GI) PERCUSSION: dullness to percussion OTHER: Mild distention Extremity: GENERAL: Yes normal exam except as noted and No edema Neuro: COMMON NORMALS: moves all extremities SENSORIUM/ORIENTATION: Yes alert and No Orientation impaired OTHER: Mild asterixis Psych: COMMON NORMALS: mental status grossly normal and Normal thought process present THOUGHT PROCESS: Normal thought process present Course ED course: - Patient was seen and evaluated by me at bedside - Patient placed on cardiac monitors, IV access obtained - Initial evaluation notable for exam as above, no focal neurologic deficits, patient is communicative and does not appear grossly altered. No significant abdominal discomfort to palpation the does have mild distention likely related to ascites. - Labs and xrays personally interpreted by me - Labs notable for no leukocytosis, normal hemoglobin. Metabolic panel without evidence of acute decompensation of liver disease, INR only minimally elevated without active evidence of hemorrhage. No evidence of urinary tract infection. - Imaging notable for no lobar consolidation or pneumothorax - Upon serial reexamination after treatment the patient was similar - Based on patient history, evaluation, and testing as interpreted the most likely cause of the patient's condition is elevated ammonia level. Discussed with Dr. Dumont who recommended initiation of lactulose with outpatient follow- up. - The results of ED evaluation were discussed with the patient including plan. Patient has family who can reliably watch for worsening and patient is co mfortable with outpatient management. I discussed prescriptions and/or symptomatic cares (if applicable) including appropriate and responsible use, followup plan, and return precautions. The patient verbalized understanding and felt safe for discharge. - Patient discharged in satisfactory condition. Note: Click bubbles or prepopulated montesinos in note writing are used for assistance with data collection and billing and are inherently more limited than narrative and other text portions of this note. Please use narrative for additional clinical history and defer to narrative/free test for any case of contradictory information. If information appears in only free text or click bubble it should be considered present or absent as reported. Please contact note headline writer for clarifications of clinical information or contradictory information. MDM is a brief summary, contradictory or erroneous seeming information should be clarified and full note should be reviewed. Vital Signs: Vital signs: Vital Signs Temperature 98.3 F 09/11/21 11:58 Pulse Rate 113 H 09/11/21 14:13 Respiratory Rate 16 09/11/21 14:13 Blood Pressure 103/60 09/11/21 14:13 Pulse Oximetry 93 09/11/21 14:13 MDM - General Adult Medical Decision Making 61-year-old lady with history of alcoholic and hepatitis C induced liver cirrh osis presenting with episodes of confusion and mild shakiness. Patient without evidence of hepatic coma or marked encephalopathy. Plan to initiate lactulose and have patient follow-up in the outpatient setting, she has family who can watch her closely. Satisfactory for discharge. Medical Records I reviewed the patient's medical records. Lab Data I reviewed the patient's lab results. : 09/11/21 12:28 09/11/21 12:28 Radiology Impressions Chest X-Ray 09/11/21 13:32 IMPRESSION: Faint nodular density in the mid right chest. Recommend CT chest to better characterize. Laboratory Results WBC 9.1 10^3/uL (4.0-10.0) 09/11/21 12:28 RBC 3.95 10^6/uL (4.1-5.3) L 09/11/21 12:28 Hgb 13.4 g/dL (11.5-15.3) 09/11/21 12:28 Hct 38.5 % (37.0-47.0) 09/11/21 12:28 MCV 97.5 fl (81-99) 09/11/21 12:28 MCH 33.9 pg (28.0-34.0) 09/11/21 12:28 MCHC 34.8 g/dL (30.0-36.0) 09/11/21 12:28 RDW 16.3 % (12.1-15.1) H 09/11/21 12:28 Plt Count 195 10^3/cmm (130-400) 09/11/21 12:28 MPV 9.2 fL (7.4-10.4) 09/11/21 12:28 Neut % (Auto) 44.7 % 09/11/21 12:28 Lymph % (Auto) 36.0 % 09/11/21 12:28 [place] % (Auto) 15.2 % 09/11/21 12:28 Eos % (Auto) 1.8 % 09/11/21 12:28 Baso % (Auto) 2.1 % 09/11/21 12:28 Neut # (Auto) 4.09 10^3/uL (1.8-7.7) 09/11/21 12:28 Lymph # (Auto) 3.3 10^3/uL (0.8-4.8) 09/11/21 12:28 [place] # (Auto) 1.4 10^3/uL (0.2-0.9) H 09/11/21 12:28 Eos # (Auto) 0.2 10^3/uL (0.0-0.8) 09/11/21 12:28 Baso # (Auto) 0.2 10^3/uL (0.0-0.1) H 09/11/21 12:28 Nucleated RBC % (auto) 0 % 09/11/21 12:28 Nucleated RBCs # 0.0 /100WBC 09/11/21 12:28 PT 16.30 SECONDS (12.1-14.9) H 09/11/21 12:28 INR 1.28 (0.8-1.2) H 09/11/21 12:28 Sodium 140 mmol/L (136-145) 09/11/21 12:28 Potassium 3.5 mmol/L (3.5-5.1) 09/11/21 12:28 Chloride 103 mmol/L (98-107) 09/11/21 12:28 Carbon Dioxide 26 mmol/L (22-29) 09/11/21 12:28 Anion Gap 14.5 (5-19) 09/11/21 12:28 BUN 5 mg/dL (6-20) L 09/11/21 12:28 Creatinine 0.6 mg/dL (0.5-0.9) 09/11/21 12:28 GFR Calculation 102.3 mL/min (90-130) 09/11/21 12:28 Glucose 112 mg/dL (65-115) 09/11/21 12:28 Calculated Osmolality 288 mOsm/kg (285-295) 09/11/21 12:28 Calcium 8.0 mg/dL (8.5-10.5) L 09/11/21 12:28 Total Bilirubin 1.1 mg/dL (0.15-1.2) 09/11/21 12:28 Direct Bilirubin 0.50 mg/dL (0.00-0.30) H 09/11/21 12:28 AST 149 U/L (0-32) H 09/11/21 12:28 ALT 46 U/L (0-33) H 09/11/21 12:28 Alkaline Phosphatase 139 IU/L (35-105) H 09/11/21 12:28 Ammonia 66 umol/L (11-51) H 09/11/21 12:28 Total Protein 8.1 g/dL (6.6-8.7) 09/11/21 12:28 Albumin 4.2 g/dL (3.5-5.2) 09/11/21 12:28 Globulin 3.9 g/dL (1.3-4.6) 09/11/21 12:28 TSH 2.53 uIU/mL (0.27-4.20) 09/11/21 12:28 Urine Color Haylie (Yellow) 09/11/21 12:45 Urine Appearance Clear (CLEAR) 09/11/21 12:45 Urine pH 5 (5-7) 09/11/21 12:45 Ur Specific [place] 1.015 (1.005-1.030) 09/11/21 12:45 Urine Protein Neg (Negative) 09/11/21 12:45 Urine Glucose (UA) Norm (Normal) 09/11/21 12:45 Urine Ketones Negative (Negative) 09/11/21 12:45 Urine Blood Neg (Negative) 09/11/21 12:45 Urine Nitrate Negative (Negative) 09/11/21 12:45 Urine Bilirubin 1+ (Negative) H 09/11/21 12:45 Urine Urobilinogen 4 mg/dL (Negative) H 09/11/21 12:45 Ur Leukocyte Esterase Negative (Negative) 09/11/21 12:45 Discharge Plan Discharge Patient Disposition: Home Clinical Impression: Hyperammonemia, Liver cirrhosis, Hep C w/o coma, chronic, Weakness Condition: Stable Prescriptions: New lactulose 10 gram/15 mL solution 30 g PO TID 7 Days Qty: 945 0RF Rx Instructions: take 3 times daily scheduled for 3 days then adjust between 1 to 3 times daily for soft stool 2-4 times per day No Action albuterol sulfate 90 mcg/actuation HFA aerosol inhaler 2 inh INHALATION Q6H PRN (Reason: Shortness Of Breath) Qty: 8.5 2RF pantoprazole [Protonix] 40 mg tablet,delayed release (DR/EC) 40 mg PO BID Qty: 60 2RF Xifaxan 550 mg tablet 550 mg PO BID Qty: 60 2RF thiamine mononitrate (vit B1) [Vitamin B-1 (mononitrate)] 100 mg tablet 100 mg PO DAILY Qty: 30 2RF Spiriva with HandiHaler 18 mcg capsule, w/inhalation device 1 cap INHALATION QAM Qty: 60 2RF fluticasone propion-salmeterol [Advair Diskus] 250-50 mcg/dose blister with device 1 inh INHALATION BID Qty: 60 1RF magnesium chloride 64 mg tablet,delayed release (DR/EC) 64 mg PO DAILY 14 Days Qty: 14 0RF sofosbuvir-velpatasvir [Epclusa] 400-100 mg tablet 1 tab PO DAILY 84 Days Qty: 90 0RF spironolactone 25 mg tablet 25 mg PO BID Qty: 60 2RF acetaminophen [Tylenol Extra Strength] 500 mg Tablet 1,000 mg PO Q6H PRN (Reason: Pain) 0RF Discharge Orders: Discharge ED (Routine); Ordered 09/11/21 Ordered By: Arnaldo Cage Referrals: Gina Gonzalez, HEATING AND VENTILATING WORKER [Primary Care Provider] - Discharge Diet: Usual diet Discharge Activity: Increase activity as tolerated Patient Instructions: Weakness (ED), Fatigue (ED) Activity Restrictions/Additional Instructions: Thank you for visiting the emergency department. You were seen and evaluated for elevated ammonia and weakness and generalized malaise with mild confusion. The likely cause of your symptoms is underlying liver disease. You will be started on a medication to aid with clearance of ammonia. Please follow-up with Dr. Dumont in 1 week. Return to the emergency department for worsening symptoms or anything else that you are concerned about and feel needs emergency department evaluation. Coding Level of Care Code ED Base Draw Operator for Cathy Donald Exam Comprehensive
[2021-09-11 11:58] VITALS: BP 152/63; PULSE 113; RESP 18; TEMP 36.8; O2SAT 96; BMI 19.8
[2021-09-11 12:34] LABS: Basophils # 0.2 10^3/uL (0.0-0.1); Basophils % 2.1 %; Eosinophils # 0.2 10^3/uL (0.0-0.8); Eosinophils % 1.8 %; Hematocrit 38.5 % (37.0-47.0); Hemoglobin 13.4 g/dL (11.5-15.3); Lymphocytes # 3.3 10^3/uL (0.8-4.8); Mean Corpuscular HGB Conc 34.8 g/dL (30.0-36.0); Mean Corpuscular Hemoglobin 33.9 pg (28.0-34.0); Mean Corpuscular Volume 97.5 fl (81-99); Mean Platelet Volume 9.2 fL (7.4-10.4); Monocytes # 1.4 10^3/uL (0.2-0.9); Monocytes % 15.2 %; Neutrophils # 4.09 10^3/uL (1.8-7.7); Neutrophils % 44.7 %; Nucleated Red Blood Cells % 0 %; Platelet Count 195 10^3/cmm (130-400); Red Blood Count 3.95 10^6/uL (4.1-5.3); Red Cell Distribution Width 16.3 % (12.1-15.1); White Blood Count 9.1 10^3/uL (4.0-10.0)
[2021-09-11 13:00] LABS: Add Urine Microscopic? NO; Charge for UA Resulting for Rev
[2021-09-11 13:01] LABS: INR 1.28 (0.8-1.2)
[2021-09-11 13:03] LABS: Ammonia 66 umol/L (11-51)
[2021-09-11 13:07] LABS: Bilirubin Urine 1+ (Negative); Blood Urine Neg (Negative); Glucose Urine UA Norm (Normal); Ketones Urine Negative (Negative); Leukocyte Esterase Urine Negative (Negative); Nitrate Urine Negative (Negative); Protein Urine Neg (Negative); Specific Gravity, Urine 1.015 (1.005-1.030); Urine Appearance Clear (CLEAR); Urine Color Amber (Yellow); Urobilinogen Urine 4 mg/dL (Negative); pH Urine 5 (5-7)
[2021-09-11 13:13] LABS: Alanine Aminotransferase 46 U/L (0-33); Albumin Level 4.2 g/dL (3.5-5.2); Alkaline Phosphatase 139 IU/L (35-105); Anion Gap 14.5 (5-19); Aspartate Amino Transferase 149 U/L (0-32); Blood Urea Nitrogen 5 mg/dL (6-20); Carbon Dioxide 26 mmol/L (22-29); Chloride 103 mmol/L (98-107); Globulin 3.9 g/dL (1.3-4.6); Glomerular Filtration Rate 102.3 mL/min (90-130); Glucose 112 mg/dL (65-115); Osmolality Calculated 288 mOsm/kg (285-295); Potassium 3.5 mmol/L (3.5-5.1); Sodium 140 mmol/L (136-145); Thyroid Stimulating Hormone 2.53 uIU/mL (0.27-4.20); Total Bilirubin 1.1 mg/dL (0.15-1.2); Total Protein 8.1 g/dL (6.6-8.7)
--- NOTE | 2021-09-11 13:32 | XRR_ITS ---
PROCEDURE INFORMATION: Exam: XR Chest Exam date and time: 09/11/2021 1:42 PM Age: 61 years old Clinical indication: Weakness and confusion. TECHNIQUE: Imaging protocol: XR of the chest. Views: 1 view. COMPARISON: CR XR chest 1V portable [id number] 05/17/2021 1:40 AM FINDINGS: Lungs: There is subsegmental atelectasis or scarring at the lung bases. Pleural spaces: No pleural effusion. No pneumothorax. Heart/Mediastinum: The cardiac silhouette is unchanged. No gross evidence of pneumomediastinum. Bones/joints: No gross fracture. Soft tissues: Faint nodular density in the mid right chest measuring 0.7 cm. XR/XR chest 1V portable [id number] IMPRESSION: Faint nodular density in the mid right chest. Recommend CT chest to better characterize.
[2021-09-11 14:11] VITALS: BP 103/60; PULSE 112; RESP 16; O2SAT 93
[2021-09-11 14:13] VITALS: BP 103/60; PULSE 113; RESP 16; O2SAT 93
== END 2021-09-11 14:13 | disposition home or self-care (01) ==
PROVIDERS: Emergency Provider Emergency Medicine; PCP Nurse Practitioner Adult Health
DX: E72.20 Disorder of urea cycle metabolism, unspecified (principal); K70.30 Alcoholic cirrhosis of liver without ascites; B18.2 Chronic viral hepatitis C; R53.1 Weakness; F17.210 Nicotine dependence, cigarettes, uncomplicated; F10.988 Alcohol use, unspecified with other alcohol-induced disorder
CPT/HCPCS: 71045; 80053; 81003; 82140; 82248; 84443; 85025; 85610; 99283

== ENCOUNTER 2021-09-13 15:15 | Emergency (ER) | payer MEDICAID, SELFPAY ==
[2021-09-13 15:25] VITALS: BP 109/66; PULSE 126; RESP 20; TEMP 36.8; O2SAT 97; BMI 20.4
--- NOTE | 2021-09-13 15:28 | W.ED.GENADLT ---
HPI - General Adult General: Chief complaint: General Medical Stated complaint: Feels sick-was seen tues Time Seen by Provider: 09/13/21 15:24 Source: patient Mode of arrival: EMS Limitations: no limitations History of Present Illness: 61-year-old female with a history of hepatitis C comes in because she feels confused. She was seen 2 days ago had an elevated ammonia levels were started on lactulose. She states she does not feel much better she has been having loose stools since then. She denies any fever sweats chills headache nausea vomiting or diarrhea she has not had any head trauma Onset (ago): day(s) Severity: mild Relieving factors: none Exacerbating factors: none Associated symptoms: Reports confusion; Deny chest pain, cough, diaphoresis, decreased appetite, dyspnea, fevers/chills, headache(s), malaise, nausea, rash, palpitations, seizures, short of breath, syncope, vomiting or weakness Treatments prior to arrival: none Review of Systems Const: Denies: fever(s), chills, body aches, malaise or diaphoresis ENMT: Denies: throat pain, ear or mastoid pain, nasal discharge or nasal congestion Card: Denies: chest pain, palpitations or syncope Resp: Denies: dyspnea GI: Denies: abdominal pain, nausea or vomiting : Denies: flank pain, difficulty voiding, dysuria, urinary frequency or urinary urgency Musc: Denies: neck pain or back pain Skin/Breast: Denies: rash Neuro: Reports: confusion; Denies: headache(s) PFS ED PFSH: Medical History Alcoholism COPD (chronic obstructive pulmonary disease) Hepatitis C Liver cirrhosis Surgical History History of hysterectomy Family History Mother Lung cancer Father Hyperthermia Social History Smoking and tobacco status: current every day smoker cigarettes Alcohol intake: current Alcohol intake frequency: few times a week Physical Exam Const: COMMON NORMALS: no acute distress GENERAL APPEARANCE: cooperative and comfortable ORIENTATION/CONSCIOUSNESS: Yes awake, Yes oriented to person, Yes oriented to place and Yes oriented to time HENMT: COMMON NORMALS: normocephalic, atraumatic and hearing grossly normal bilaterally HEAD & SCALP: normocephalic and atraumatic Neck/C-Spine: COMMON NORMALS: no JVD Resp: COMMON NORMALS: normal respiratory effort, No retractions, No use of accessory muscles and clear to auscultation bilaterally AUSCULTATION: clear to auscultation bilaterally Cardio: COMMON NORMALS: no JVD, regular rate, regular rhythm and No murmurs present (Cardio) RATE: regular rate RHYTHM: regular rhythm GI: COMMON NORMALS: Soft to palpation and No hepatosplenomegaly present AUSCULTATION: Yes normoactive bowel sounds PALPATION: Yes Soft to palpation, No Tenderness to palpation present (GI), No Guarding due to palpation present (GI) and Yes No hepatosplenomegaly present Extremity: COMMON NORMALS: normal to inspection, capillary refill normal, no clubbing, cyanosis or edema, no calf tenderness and no pedal edema Neuro: SENSORIUM/ORIENTATION: Yes oriented to person, Yes oriented to place and Yes oriented to time Skin: COMMON NORMALS: no rashes or lesions noted GENERAL SKIN EXAM: no rashes or lesions noted Course Vital Signs: Vital signs: Vital Signs Temperature 98.3 F 09/13/21 15:25 Pulse Rate 126 H 09/13/21 15:25 Respiratory Rate 20 H 09/13/21 15:25 Blood Pressure 109/66 09/13/21 15:25 Pulse Oximetry 97 09/13/21 15:25 [facility] - General Adult Medical Decision Making Patient is awake and alert she her mental status seems good at this point. She is somewhat tachycardic however looking back through her records she is frequently tachycardic. Organ to stop her Lasix and stop her potassium supplement continue her spironolactone. Continue all her other medications as previously prescribed and have her follow-up with her primary care doctor within the week. Medical Records I reviewed the patient's medical records. Lab Data I reviewed the patient's lab results. : 09/13/21 15:48 09/13/21 15:48 Radiology Impressions Chest X-Ray 09/13/21 15:29 IMPRESSION: No obvious acute consolidation. Suboptimal lung base assessment. Followup including lateral view may be obtained if clinically indicated. Laboratory Results WBC 8.0 10^3/uL (4.0-10.0) 09/13/21 15:48 RBC 3.66 10^6/uL (4.1-5.3) L 09/13/21 15:48 Hgb 12.3 g/dL (11.5-15.3) 09/13/21 15:48 Hct 35.5 % (37.0-47.0) L 09/13/21 15:48 MCV 97.0 fl (81-99) 09/13/21 15:48 MCH 33.6 pg (28.0-34.0) 09/13/21 15:48 MCHC 34.6 g/dL (30.0-36.0) 09/13/21 15:48 RDW 16.1 % (12.1-15.1) H 09/13/21 15:48 Plt Count 157 10^3/cmm (130-400) 09/13/21 15:48 MPV 9.3 fL (7.4-10.4) 09/13/21 15:48 Neut % (Auto) 47.8 % 09/13/21 15:48 Lymph % (Auto) 36.0 % 09/13/21 15:48 [place] % (Auto) 11.9 % 09/13/21 15:48 Eos % (Auto) 2.3 % 09/13/21 15:48 Baso % (Auto) 1.9 % 09/13/21 15:48 Neut # (Auto) 3.81 10^3/uL (1.8-7.7) 09/13/21 15:48 Lymph # (Auto) 2.9 10^3/uL (0.8-4.8) 09/13/21 15:48 [place] # (Auto) 1.0 10^3/uL (0.2-0.9) H 09/13/21 15:48 Eos # (Auto) 0.2 10^3/uL (0.0-0.8) 09/13/21 15:48 Baso # (Auto) 0.2 10^3/uL (0.0-0.1) H 09/13/21 15:48 Nucleated RBC % (auto) 0 % 09/13/21 15:48 Nucleated RBCs # 0.0 /100WBC 09/13/21 15:48 Sodium 138 mmol/L (136-145) 09/13/21 15:48 Potassium 3.6 mmol/L (3.5-5.1) 09/13/21 15:48 Chloride 100 mmol/L (98-107) 09/13/21 15:48 Carbon Dioxide 25 mmol/L (22-29) 09/13/21 15:48 Anion Gap 16.6 (5-19) 09/13/21 15:48 BUN 3 mg/dL (6-20) L 09/13/21 15:48 Creatinine 0.6 mg/dL (0.5-0.9) 09/13/21 15:48 GFR Calculation 102.3 mL/min (90-130) 09/13/21 15:48 Glucose 147 mg/dL (65-115) H 09/13/21 15:48 Calculated Osmolality 285 mOsm/kg (285-295) 09/13/21 15:48 Calcium 8.4 mg/dL (8.5-10.5) L 09/13/21 15:48 Total Bilirubin 1.2 mg/dL (0.15-1.2) 09/13/21 15:48 AST 143 U/L (0-32) H 09/13/21 15:48 ALT 42 U/L (0-33) H 09/13/21 15:48 Alkaline Phosphatase 124 IU/L (35-105) H 09/13/21 15:48 Ammonia 43 umol/L (11-51) 09/13/21 15:48 Total Protein 7.3 g/dL (6.6-8.7) 09/13/21 15:48 Albumin 3.9 g/dL (3.5-5.2) 09/13/21 15:48 Globulin 3.4 g/dL (1.3-4.6) 09/13/21 15:48 Discharge Plan Discharge Patient Disposition: Home Clinical Impression: Liver cirrhosis, Hyperammonemia Condition: Stable Prescriptions: Discontinued potassium chloride 10 mEq tablet extended release 10 meq PO DAILY Qty: 30 2RF furosemide 20 mg tablet 20 mg PO DAILY Qty: 30 2RF No Action albuterol sulfate 90 mcg/actuation HFA aerosol inhaler 2 inh INHALATION Q6H PRN (Reason: Shortness Of Breath) Qty: 8.5 2RF pantoprazole [Protonix] 40 mg tablet,delayed release (DR/EC) 40 mg PO BID Qty: 60 2RF Xifaxan 550 mg tablet 550 mg PO BID Qty: 60 2RF thiamine mononitrate (vit B1) [Vitamin B-1 (mononitrate)] 100 mg tablet 100 mg PO DAILY Qty: 30 2RF Spiriva with HandiHaler 18 mcg capsule, w/inhalation device 1 cap INHALATION QAM Qty: 60 2RF fluticasone propion-salmeterol [Advair Diskus] 250-50 mcg/dose blister with device 1 inh INHALATION BID Qty: 60 1RF magnesium chloride 64 mg tablet,delayed release (DR/EC) 64 mg PO DAILY 14 Days Qty: 14 0RF sofosbuvir-velpatasvir [Epclusa] 400-100 mg tablet 1 tab PO DAILY 84 Days Qty: 90 0RF spironolactone 25 mg tablet 25 mg PO BID Qty: 60 2RF acetaminophen [Tylenol Extra Strength] 500 mg Tablet 1,000 mg PO Q6H PRN (Reason: Pain) 0RF lactulose 10 gram/15 mL solution 30 g PO TID 7 Days Qty: 945 0RF Rx Instructions: take 3 times daily scheduled for 3 days then adjust between 1 to 3 times daily for soft stool 2-4 times per day Discharge Orders: Discharge ED (Routine); Ordered 09/13/21 Ordered By: Saturnino Slaughter Referrals: Gina Gonzalez APRN [Primary Care Provider] - Patient Instructions: Opioid Safety Activity Restrictions/Additional Instructions: Stop Lasix and potassium. Continue previously prescribed medications follow-up with your primary care doctor. Coding Level of Care Code ED Financial Quantitative Analyst for Chg Fwd Exam Comprehensive
--- NOTE | 2021-09-13 15:29 | XRR_ITS ---
PROCEDURE INFORMATION: Exam: XR Chest Exam date and time: 09/13/2021 3:46 PM Age: 61 years old Clinical indication: Cough and dyspnea; Additional info: Dyspnea/cough TECHNIQUE: Imaging protocol: XR of the chest. Views: 1 view. COMPARISON: CR XR chest 1V portable [id number] 09/11/2021 1:42 PM FINDINGS: Lungs: The lung bases are suboptimally assessed due to technique however the upper lungs are clear of focal consolidation. Tiny right basilar linear opacity suggesting atelectasis versus overlying garment artifact. Pleural spaces: Unremarkable. No pleural effusion. No pneumothorax. Heart/Mediastinum: Cardiac silhouette appears normal in size. No obvious vascular congestion. Bones/joints: No acute osseous findings. Other findings: Single view was submitted. XR/XR chest 1V portable [id number] IMPRESSION: No obvious acute consolidation. Suboptimal lung base assessment. Followup including lateral view may be obtained if clinically indicated.
--- NOTE | 2021-09-13 15:29 | ECG_ITS ---
[facility] Test Date: 2021-09-13 Pat Name: Susie Bassett Department: Room: Gender: Female Rad Tech: : 1960 Requested By: Saturnino Johnson Order Number: [id number] Markell MD: Tiffanie Mckeon M.D. Measurements Intervals [place] Rate: 119 P: 75 [place]: 152 QRS: 89 QRSD: 89 T: 47 QT: 326 QTc: 460 Interpretive Statements SINUS TACHYCARDIA ABNORMAL RHYTHM ECG Compared to ECG 05/18/2020 12:12:54 No significant changes Electronically Signed On 09-14-2021 20:11:39 CDT by Tiffanie Mckeon M.D. [id number]
[2021-09-13 16:01] LABS: Basophils # 0.2 10^3/uL (0.0-0.1); Basophils % 1.9 %; Eosinophils # 0.2 10^3/uL (0.0-0.8); Eosinophils % 2.3 %; Hematocrit 35.5 % (37.0-47.0); Hemoglobin 12.3 g/dL (11.5-15.3); Lymphocytes # 2.9 10^3/uL (0.8-4.8); Mean Corpuscular HGB Conc 34.6 g/dL (30.0-36.0); Mean Corpuscular Hemoglobin 33.6 pg (28.0-34.0); Mean Platelet Volume 9.3 fL (7.4-10.4); Monocytes % 11.9 %; Neutrophils # 3.81 10^3/uL (1.8-7.7); Neutrophils % 47.8 %; Nucleated Red Blood Cells % 0 %; Platelet Count 157 10^3/cmm (130-400); Red Blood Count 3.66 10^6/uL (4.1-5.3); Red Cell Distribution Width 16.1 % (12.1-15.1)
[2021-09-13 16:24] LABS: Alanine Aminotransferase 42 U/L (0-33); Albumin Level 3.9 g/dL (3.5-5.2); Alkaline Phosphatase 124 IU/L (35-105); Anion Gap 16.6 (5-19); Aspartate Amino Transferase 143 U/L (0-32); Blood Urea Nitrogen 3 mg/dL (6-20); Calcium 8.4 mg/dL (8.5-10.5); Carbon Dioxide 25 mmol/L (22-29); Chloride 100 mmol/L (98-107); Globulin 3.4 g/dL (1.3-4.6); Glomerular Filtration Rate 102.3 mL/min (90-130); Glucose 147 mg/dL (65-115); Osmolality Calculated 285 mOsm/kg (285-295); Potassium 3.6 mmol/L (3.5-5.1); Sodium 138 mmol/L (136-145); Total Bilirubin 1.2 mg/dL (0.15-1.2); Total Protein 7.3 g/dL (6.6-8.7)
[2021-09-13 16:30] LABS: Ammonia 43 umol/L (11-51)
== END 2021-09-13 17:14 | disposition home or self-care (01) ==
PROVIDERS: Emergency Provider Family Medicine; PCP Nurse Practitioner Adult Health
DX: K74.60 Unspecified cirrhosis of liver (principal); E72.20 Disorder of urea cycle metabolism, unspecified; B19.20 Unspecified viral hepatitis C without hepatic coma; J44.9 Chronic obstructive pulmonary disease, unspecified; F17.210 Nicotine dependence, cigarettes, uncomplicated
CPT/HCPCS: 71045; 80053; 82140; 85025; 93005; 99284

== ENCOUNTER 2021-10-17 09:33 | Emergency (ER) | payer MEDICAID, SELFPAY ==
[2021-10-17 09:47] VITALS: BP 116/71; PULSE 132; RESP 18; TEMP 36.8; O2SAT 98; BMI 20.4
--- NOTE | 2021-10-17 10:00 | XR_ITS ---
WS: [id number] Exam: XR chest 1V portable [id number] Date/Time of Exam: 10/17/2021 10:00 AM Reason For Exam: sob Comparison 09/13/2021. The lungs are hyperinflated and clear. Normal cardiomediastinal silhouette. No pleural effusions. Sca ttered calcified granulomas. XR/XR chest 1V portable [id number] IMPRESSION: 1. Pulmonary hyperinflation. No acute process.
--- NOTE | 2021-10-17 10:00 | ECG_ITS ---
[facility] Test Date: 2021-10-17 Pat Name: Susie Bassett Department: Room: Gender: Female Service Center Manager: : 1960 Requested By: Saturnino Johnson Order Number: [id number] Markell MD: Tiffanie Mckeon M.D. Measurements Intervals [place] Rate: 112 P: 77 AK: 162 QRS: 89 QRSD: 84 T: 63 QT: 342 QTc: 468 Interpretive Statements SINUS TACHYCARDIA ABNORMAL RHYTHM ECG Compared to ECG 09/13/2021 16:39:47 No significant changes Electronically Signed On 10-17-2021 20:13:22 CDT by Tiffanie Mckeon M.D. [id number]
--- NOTE | 2021-10-17 10:12 | W.ED.NAVMDI ---
HPI - Nausea/Vomiting/Diarrhea General: Chief complaint: Nausea/Vomiting/Diarrhea Stated complaint: vomiting/nausea/weakness/SOB Time Seen by Provider: 10/17/21 09:59 Source: patient Mode of arrival: ambulatory Limitations: no limitations History of Present Illness: Patient is a 61-year-old female with a history of COPD, chronic alcohol use, hepatitis C, and liver cirrhosis with ascites here for complaints of nausea and vomiting. Patient states she had been sober from alcohol for several weeks but recently relapsed over . Patient states over the past 48 hours she has not been able to keep anything down and is having repetitive episodes of vomiting. Patient states she is having some abdominal ascites but this is a chronic issue for patient. She states last paracentesis was approximately a month ago through Dr. Dumont. Patient is not having any diarrhea. No fevers. She does have a history of elevated ammonia levels. She has not had any changes in mental status recently. MD elicited complaint: nausea and vomiting Pertinent past history: alcohol abuse and other (hep C, liver cirrhosis, abdominal ascites) Associated nausea: Yes Exacerbating factors: eating Relieving factors: none Associated symtoms: Reports nausea; Denies chest pain, dysuria, fatigue, headache(s) or malaise Review of Systems Const: Denies: fever(s), chills, body aches, fatigue or malaise Card: Denies: chest pain Resp: Reports: dyspnea (improved since arrival to ED room); Denies: wheezing or hemoptysis GI: Reports: nausea and vomiting; Denies: abdominal pain or diarrhea : Denies: flank pain, dysuria or hematuria Musc: Denies: neck pain, back pain, extremity pain or joint pain Skin/Breast: Denies: rash Neuro: Denies: headache(s), numbness in extremities, weakness in extremities or sensory changes PFSH ED PFSH: Medical History Alcoholism COPD (chronic obstructive pulmonary disease) Hepatitis C Liver cirrhosis Surgical History History of hysterectomy Family History Mother Lung cancer Father Hyperthermia Social History Smoking and tobacco status: current every day smoker cigarettes Alcohol intake: current Alcohol intake frequency: few times a week Other details last alcohol use: 1 month since last drink Physical Exam Const: COMMON NORMALS: patient oriented x3, no limitations and alert GENERAL APPEARANCE: cooperative, ill appearing and appears older than stated age ORIENTATION/CONSCIOUSNESS: Yes awake, Yes oriented to person, Yes oriented to place and Yes oriented to time OTHER: mildly tremulous; states she is cold HENMT: COMMON NORMALS: normocephalic and atraumatic HEAD & SCALP: normal to inspection, normocephalic and atraumatic Resp: COMMON NORMALS: normal respiratory effort and clear to auscultation bilaterally AUSCULTATION: clear to auscultation bilaterally Cardio: COMMON NORMALS: regular rate and regular rhythm RATE: regular rate RHYTHM: regular rhythm GI: INSPECTION: Yes abdominal distension and Yes other (ascites) AUSCULTATION: Yes normoactive bowel sounds PALPATION: Yes Ascites present : COMMON NORMALS: Yes no CVA tenderness BLADDER/KIDNEY EXAM: Yes no CVA tenderness Back/Pelvis: COMMON NORMALS: no CVA tenderness Extremity: COMMON NORMALS: normal to inspection GENERAL: Yes normal exam except as noted Neuro: NORMAN COMA SCALE: document GCS findings [place] coma scale eye opening: Spontaneous [place] coma scale verbal response: Orientated [place] coma scale motor response: Obey commands [place] coma scale total score: 15 COMMON NORMALS: patient oriented x3, moves all extremities, no focal motor deficits and no sensory deficits noted SENSORIUM/ORIENTATION: Yes alert, Yes oriented to person, Yes oriented to place and Yes oriented to time Skin: COMMON NORMALS: no rashes or lesions noted GENERAL SKIN EXAM: no rashes or lesions noted Course Vital Signs: Vital signs: Vital Signs Temperature 98.2 F 10/17/21 09:47 Pulse Rate 112 H 10/17/21 12:28 Respiratory Rate 16 10/17/21 12:28 Blood Pressure 129/91 10/17/21 12:28 Pulse Oximetry 95 10/17/21 12:28 MDM - Nausea/Vomiting/Diarrhea Medical Decision Making Patient is a 61-year-old with a history of COPD, hepatitis C, liver cirrhosis with ascites, chronic alcohol use with recent relapse here for complaints of nausea and vomiting. Patient is tachycardic upon arrival but remainder of vitals are stable. Looking at previous vital sets she is often tachycardic. Patient has a normal white count. She has mild thrombocytopenia. Chemistry panel with chronic LFTs. Ammonia levels not drawn today as she is not having any signs and symptoms of hepatic coma or marked encephalopathy. Patient states her abdominal ascites seems to be at her baseline therefore emergent/therapeutic paracentesis is not indicated on today's visit. I have no concern for SBP. She was recommended to follow-up with Dr. Dumont so he can arrange this if needed. Most likely patient has an alcoholic gastritis related to her recent relapse. She was given IV protonix here. Patient takes pantoprazole 40mg BID at home. She does not complain of any hematemesis or hematochezia/melanotic stools. Lab Data : 10/17/21 10:26 10/17/21 10:26 Radiology Impressions Chest X-Ray 10/17/21 10:00 IMPRESSION: 1. Pulmonary hyperinflation. No acute process. Laboratory Results WBC 8.3 10^3/uL (4.0-10.0) 10/17/21 10:26 RBC 3.99 10^6/uL (4.1-5.3) L 10/17/21 10:26 Hgb 13.7 g/dL (11.5-15.3) 10/17/21 10:26 Hct 38.8 % (37.0-47.0) 10/17/21 10:26 MCV 97.2 fl (81-99) 10/17/21 10:26 MCH 34.3 pg (28.0-34.0) H 10/17/21 10:26 MCHC 35.3 g/dL (30.0-36.0) 10/17/21 10:26 RDW 15.6 % (12.1-15.1) H 10/17/21 10:26 Plt Count 129 10^3/cmm (130-400) L 10/17/21 10:26 MPV 10.8 fL (7.4-10.4) H 10/17/21 10:26 Neut % (Auto) 65.2 % 10/17/21 10:26 Lymph % (Auto) 22.0 % 10/17/21 10:26 [place] % (Auto) 10.5 % 10/17/21 10:26 Eos % (Auto) 0.5 % 10/17/21 10:26 Baso % (Auto) 1.6 % 10/17/21 10:26 Neut # (Auto) 5.42 10^3/uL (1.8-7.7) 10/17/21 10:26 Lymph # (Auto) 1.8 10^3/uL (0.8-4.8) 10/17/21 10:26 [place] # (Auto) 0.9 10^3/uL (0.2-0.9) 10/17/21 10:26 Eos # (Auto) 0.0 10^3/uL (0.0-0.8) 10/17/21 10:26 Baso # (Auto) 0.1 10^3/uL (0.0-0.1) 10/17/21 10:26 Nucleated RBC % (auto) 0 % 10/17/21 10:26 Nucleated RBCs # 0.0 /100WBC 10/17/21 10:26 Sodium 136 mmol/L (136-145) 10/17/21 10:26 Potassium 4.0 mmol/L (3.5-5.1) 10/17/21 10:26 Chloride 94 mmol/L (98-107) L 10/17/21 10:26 Carbon Dioxide 25 mmol/L (22-29) 10/17/21 10:26 Anion Gap 21.0 (5-19) H 10/17/21 10:26 BUN 5 mg/dL (6-20) L 10/17/21 10:26 Creatinine 0.6 mg/dL (0.5-0.9) 10/17/21 10:26 GFR Calculation 102.3 mL/min (90-130) 10/17/21 10:26 Glucose 128 mg/dL (65-115) H 10/17/21 10:26 Calculated Osmolality 281 mOsm/kg (285-295) L 10/17/21 10:26 Calcium 8.6 mg/dL (8.5-10.5) 10/17/21 10:26 Total Bilirubin 1.6 mg/dL (0.15-1.2) H 10/17/21 10:26 AST 153 U/L (0-32) H 10/17/21 10:26 ALT 41 U/L (0-33) H 10/17/21 10:26 Alkaline Phosphatase 128 IU/L (35-105) H 10/17/21 10:26 Total Protein 8.4 g/dL (6.6-8.7) 10/17/21 10:26 Albumin 3.9 g/dL (3.5-5.2) 10/17/21 10:26 Globulin 4.5 g/dL (1.3-4.6) 10/17/21 10:26 Lipase 44 U/L (13-60) 10/17/21 10:26 Discharge Plan Discharge Patient Disposition: Home Clinical Impression: Abdominal ascites, Liver cirrhosis, Alcoholic gastritis without bleeding Condition: Stable Prescriptions: New Carafate 1 gram tablet 1 g PO TID 14 Days Qty: 42 0RF ondansetron 4 mg tablet,disintegrating 4 mg PO Q8H PRN (Reason: nausea and vomiting) Qty: 14 0RF No Action albuterol sulfate 90 mcg/actuation HFA aerosol inhaler 2 inh INHALATION Q6H PRN (Reason: Shortness Of Breath) Qty: 8.5 2RF pantoprazole [Protonix] 40 mg tablet,delayed release (DR/EC) 40 mg PO BID Qty: 60 2RF thiamine mononitrate (vit B1) [Vitamin B-1 (mononitrate)] 100 mg tablet 100 mg PO DAILY Qty: 30 2RF fluticasone propion-salmeterol [Advair Diskus] 250-50 mcg/dose blister with device 1 inh INHALATION BID Qty: 60 1RF spironolactone [Aldactone] 100 mg tablet 100 mg PO DAILY Qty: 90 8RF sofosbuvir-velpatasvir [Epclusa] 400-100 mg tablet 1 tab PO DAILY 84 Days Qty: 90 0RF Xifaxan 550 mg tablet 550 mg PO BID Qty: 60 2RF acetaminophen [Tylenol Extra Strength] 500 mg Tablet 1,000 mg PO Q6H PRN (Reason: Pain) 0RF Lasix 20 mg Tablet 20 mg PO DAILY 0RF lactulose 10 gram/15 mL solution 45 ml PO TID PRN (Reason: Constipation) 0RF Spiriva with HandiHaler 18 mcg capsule, w/inhalation device 1 cap INHALATION QAM 0RF Discharge Orders: Discharge ED (Routine); Ordered 10/17/21 Ordered By: Noemi Luis Referrals: Gina Gonzalez APRN [Primary Care Provider] - Activity Restrictions/Additional Instructions: As we discussed you need to follow-up with Dr. Dumont for further evaluation and need for therapeutic paracentesis. As she spoke to you earlier about, you need to be on a low protein diet. Abstain from alcohol use. To a bland liquid diet over the next 24 to 48 hours and you can slowly advance as tolerated. Coding Level of Care Code ED Radial Drill Operator for Chg Fwd Exam Comprehensive
[2021-10-17] MEDS: ondansetron 2 mg/ML SDV 2 mL 4 MG IVP (10:17)
[2021-10-17] MEDS: sodium chloride 0.9% 1,000 ML 999 ML IV (10:18)
[2021-10-17 10:21] VITALS: BP 116/71; PULSE 122; RESP 16; O2SAT 96
[2021-10-17] MEDS: pantoprazole 40 mg SDV 80 MG IVP (10:36)
[2021-10-17] MEDS: LORazepam 2 mg/mL INJ 1 mL 1 MG IVP (10:36)
[2021-10-17 11:01] LABS: Basophils # 0.1 10^3/uL (0.0-0.1); Basophils % 1.6 %; Eosinophils % 0.5 %; Hematocrit 38.8 % (37.0-47.0); Hemoglobin 13.7 g/dL (11.5-15.3); Lymphocytes # 1.8 10^3/uL (0.8-4.8); Mean Corpuscular HGB Conc 35.3 g/dL (30.0-36.0); Mean Corpuscular Hemoglobin 34.3 pg (28.0-34.0); Mean Corpuscular Volume 97.2 fl (81-99); Mean Platelet Volume 10.8 fL (7.4-10.4); Monocytes # 0.9 10^3/uL (0.2-0.9); Monocytes % 10.5 %; Neutrophils # 5.42 10^3/uL (1.8-7.7); Neutrophils % 65.2 %; Nucleated Red Blood Cells % 0 %; Platelet Count 129 10^3/cmm (130-400); Red Blood Count 3.99 10^6/uL (4.1-5.3); Red Cell Distribution Width 15.6 % (12.1-15.1); White Blood Count 8.3 10^3/uL (4.0-10.0)
[2021-10-17 11:27] LABS: Alanine Aminotransferase 41 U/L (0-33); Albumin Level 3.9 g/dL (3.5-5.2); Alkaline Phosphatase 128 IU/L (35-105); Aspartate Amino Transferase 153 U/L (0-32); Blood Urea Nitrogen 5 mg/dL (6-20); Calcium 8.6 mg/dL (8.5-10.5); Carbon Dioxide 25 mmol/L (22-29); Chloride 94 mmol/L (98-107); Globulin 4.5 g/dL (1.3-4.6); Glomerular Filtration Rate 102.3 mL/min (90-130); Glucose 128 mg/dL (65-115); Lipase 44 U/L (13-60); Osmolality Calculated 281 mOsm/kg (285-295); Sodium 136 mmol/L (136-145); Total Bilirubin 1.6 mg/dL (0.15-1.2); Total Protein 8.4 g/dL (6.6-8.7)
[2021-10-17 12:28] VITALS: BP 129/91; PULSE 112; RESP 16; O2SAT 95
== END 2021-10-17 13:13 | disposition home or self-care (01) ==
PROVIDERS: Emergency Provider Physician Assistant; PCP Nurse Practitioner Adult Health
DX: K74.60 Unspecified cirrhosis of liver (principal); R18.8 Other ascites; B19.20 Unspecified viral hepatitis C without hepatic coma; K29.20 Alcoholic gastritis without bleeding; F10.10 Alcohol abuse, uncomplicated
CPT/HCPCS: 71045; 80053; 83690; 85025; 93005; 96374; 96375; 99284; C9113; J2060; J2405; J7030

== ENCOUNTER 2021-10-29 12:03 | Day surgery (SDC) | payer MEDICAID, SELFPAY ==
[2021-10-29 12:20] VITALS: BP 154/86; PULSE 107; RESP 16; TEMP 36.7; O2SAT 98
--- NOTE | 2021-10-29 12:21 | US_ITS ---
WS: [id number] ULTRASOUND ABDOMEN LIMITED CLINICAL INFORMATION: marking for para COMPARISON: None. FINDINGS: 4 quadrants evaluated. Minimal abdominal ascites. Insufficient fluid for paracentesis. US/US abdomen limited [id number] IMPRESSION: Insufficient fluid for paracentesis.
[2021-10-29 12:29] VITALS: BMI 19.3
== END 2021-10-29 13:00 | disposition home or self-care (01) ==
LOC: GILAB 12:05
PROVIDERS: PCP Nurse Practitioner Adult Health; Visit Provider Internal Medicine
DX: R18.8 Other ascites (principal)
CPT/HCPCS: 76705

== ENCOUNTER → 2021-12-27 15:20 | Outpatient (BNVA) | payer MEDICAID, SELFPAY | PROVIDERS: PCP Family Medicine; Visit Provider Internal Medicine | DX: B18.2 Chronic viral hepatitis C (principal) | CPT/HCPCS: 87522 ==

== ENCOUNTER 2022-01-21 06:02 | Emergency (ER) | payer MEDICAID, SELFPAY ==
[2022-01-21 06:02] VITALS: O2SAT 98
[2022-01-21 06:03] VITALS: BMI 20.5
[2022-01-21 06:05] VITALS: BP 126/80; PULSE 83; RESP 19; TEMP 37.2; O2SAT 95
--- NOTE | 2022-01-21 06:12 | PC.NURSE ---
patient vomiting, attending aware.
--- NOTE | 2022-01-21 06:19 | W.ED.NAVMDI ---
HPI - Nausea/Vomiting/Diarrhea General: Chief complaint: Nausea/Vomiting/Diarrhea Stated complaint: N/V/BLOODY NOSE Time Seen by Provider: 01/21/22 06:17 Source: patient Mode of arrival: ambulatory History of Present Illness: 61-year-old female who presents to the emergency room via EMS with complaint of persistent nausea and vomiting. She also reports epistaxis but that has resolved. Patient has a history of alcoholism who recently began drinking yesterday drank 12 small bottles of hard liquor. After ingesting this patient began having significant abdominal discomfort with nausea and vomiting she thinks she may have had some streaks of blood but denies any large amounts of clotted blood. She also has a history of hepatitis C. MD elicited complaint: nausea and vomiting Pertinent past history: alcohol abuse Onset (ago): hour(s) Description of vomiting: watery, bilious and blood-streaked Associated nausea: Yes Associated abdominal pain: Yes Location of pain: Epigastric Radiation: diffuse Pain consistency: constant Severity: moderate Quality: cramping Exacerbating factors: none Relieving factors: none Associated symtoms: Reports anorexia, malaise and nausea; Denies altered mental status, anxiety, bloating, change in vision, chest pain, cough, diaphoresis, decreased urine output, dizziness, dysuria, epistaxis, fatigue, fecal incontinence, fevers/chills, headache(s), myalgias, numbness, palpitations, rash, short of breath, syncope, tenesmus, tinnitus, weakness or other Review of Systems Const: Reports: malaise; Denies: fever(s), chills, fatigue or diaphoresis Eyes: Denies: change in vision ENMT: Denies: tinnitus or epistaxis Card: Denies: chest pain, palpitations or syncope Resp: Denies: dyspnea, productive cough or non-productive cough GI: Reports: abdominal pain, nausea, vomiting and hematemesis; Denies: bloating or fecal incontinence : Denies: flank pain, difficulty voiding, dysuria, urinary frequency or urinary urgency Skin/Breast: Denies: rash or pruritus Neuro: Denies: headache(s) or dizziness Psych: Denies: anxiety PFSH ED PFSH: Medical History Alcoholism COPD (chronic obstructive pulmonary disease) Hepatitis C Liver cirrhosis Surgical History History of hysterectomy Family History Mother Lung cancer Father Hyperthermia Social History Smoking and tobacco status: current every day smoker cigarettes Alcohol intake: current Alcohol intake frequency: few times a week Other details last alcohol use: 1 month since last drink Physical Exam Const: COMMON NORMALS: no acute distress EXAM LIMITATIONS: no altered mental status GENERAL APPEARANCE: cooperative and comfortable ORIENTATION/CONSCIOUSNESS: Yes awake, Yes oriented to person, Yes oriented to place and Yes oriented to time HENMT: COMMON NORMALS: normocephalic, atraumatic and hearing grossly normal bilaterally HEAD & SCALP: normocephalic and atraumatic Resp: COMMON NORMALS: normal respiratory effort, No retractions, No use of accessory muscles and clear to auscultation bilaterally AUSCULTATION: clear to auscultation bilaterally Cardio: COMMON NORMALS: regular rate, regular rhythm and No murmurs present (Cardio) RATE: regular rate RHYTHM: regular rhythm GI: PALPATION: Yes Tenderness to palpation present (GI), No Guarding due to palpation present (GI) and Yes Hepatomegaly present : COMMON NORMALS: Yes no CVA tenderness BLADDER/KIDNEY EXAM: Yes no CVA tenderness Back/Pelvis: COMMON NORMALS: no CVA tenderness Extremity: COMMON NORMALS: normal to inspection, capillary refill normal, no clubbing, cyanosis or edema, no calf tenderness and no pedal edema Neuro: SENSORIUM/ORIENTATION: Yes oriented to person, Yes oriented to place and Yes oriented to time Skin: COMMON NORMALS: no rashes or lesions noted GENERAL SKIN EXAM: no rashes or lesions noted Course Vital Signs: Vital signs: Vital Signs Temperature 98.9 F 01/21/22 06:05 Pulse Rate 82 01/21/22 07:32 Respiratory Rate 19 H 01/21/22 06:05 Blood Pressure 128/78 01/21/22 07:32 Pulse Oximetry 98 01/21/22 07:32 Oxygen Delivery Me thod 01/21/22 06:02 MDM - Nausea/Vomiting/Diarrhea Medical Decision Making Encourage abstinence. Patient has alcoholic gastritis secondary to large quantity of liquor drank in a short period of time. Labs reviewed. Discharge home continue Protonix avoid alcohol Medical Records I reviewed the patient's medical records. Lab Data I reviewed the patient's lab results. : 01/21/22 06:08 01/21/22 06:08 Laboratory Results WBC 9.8 10^3/uL (4.0-10.0) 01/21/22 06:08 RBC 3.78 10^6/uL (4.1-5.3) L 01/21/22 06:08 Hgb 12.9 g/dL (11.5-15.3) 01/21/22 06:08 Hct 36.6 % (37.0-47.0) L 01/21/22 06:08 MCV 96.8 fl (81-99) 01/21/22 06:08 MCH 34.1 pg (28.0-34.0) H 01/21/22 06:08 MCHC 35.2 g/dL (30.0-36.0) 01/21/22 06:08 RDW 16.6 % (12.1-15.1) H 01/21/22 06:08 Plt Count 73 10^3/cmm (130-400) L 01/21/22 06:08 MPV 11.0 fL (7.4-10.4) H 01/21/22 06:08 Neut % (Auto) 57.2 % 01/21/22 06:08 Lymph % (Auto) 33.2 % 01/21/22 06:08 [place] % (Auto) 7.2 % 01/21/22 06:08 Eos % (Auto) 1.1 % 01/21/22 06:08 Baso % (Auto) 1.1 % 01/21/22 06:08 Neut # (Auto) 5.60 10^3/uL (1.8-7.7) 01/21/22 06:08 Lymph # (Auto) 3.3 10^3/uL (0.8-4.8) 01/21/22 06:08 [place] # (Auto) 0.7 10^3/uL (0.2-0.9) 01/21/22 06:08 Eos # (Auto) 0.1 10^3/uL (0.0-0.8) 01/21/22 06:08 Baso # (Auto) 0.1 10^3/uL (0.0-0.1) 01/21/22 06:08 Nucleated RBC % (auto) 0 % 01/21/22 06:08 Nucleated RBCs # 0.0 /100WBC 01/21/22 06:08 PT 17.40 SECONDS (12.1-14.9) H 01/21/22 06:08 INR 1.39 (0.8-1.2) H 01/21/22 06:08 APTT 36.0 SECONDS (23.9-36.7) 01/21/22 06:08 Sodium 137 mmol/L (136-145) 01/21/22 06:08 Potassium 3.4 mmol/L (3.5-5.1) L 01/21/22 06:08 Chloride 98 mmol/L (98-107) 01/21/22 06:08 Carbon Dioxide 25 mmol/L (22-29) 01/21/22 06:08 Anion Gap 17.4 (5-19) 01/21/22 06:08 BUN 4 mg/dL (6-20) L 01/21/22 06:08 Creatinine 0.6 mg/dL (0.5-0.9) 01/21/22 06:08 GFR Calculation 102.3 mL/min (90-130) 01/21/22 06:08 Glucose 130 mg/dL (65-115) H 01/21/22 06:08 Calculated Osmolality 283 mOsm/kg (285-295) L 01/21/22 06:08 Calcium 8.3 mg/dL (8.5-10.5) L 01/21/22 06:08 Total Bilirubin 1.4 mg/dL (0.15-1.2) H 01/21/22 06:08 AST 171 U/L (0-32) H 01/21/22 06:08 ALT 45 U/L (0-33) H 01/21/22 06:08 Alkaline Phosphatase 150 U/L (35-105) H 01/21/22 06:08 Ammonia 45 umol/L (11-51) 01/21/22 06:29 Total Protein 8.1 g/dL (6.6-8.7) 01/21/22 06:08 Albumin 3.7 g/dL (3.5-5.2) 01/21/22 06:08 Globulin 4.4 g/dL (1.3-4.6) 01/21/22 06:08 Lipase 39 U/L (13-60) 01/21/22 06:08 Discharge Plan Discharge Patient Disposition: Home Clinical Impression: Chronic alcohol use, Abdominal ascites, Liver cirrhosis Condition: Stable Prescriptions: No Action fluticasone propion-salmeterol [Advair Diskus] 250-50 mcg/dose blister with device 1 inh INHALATION BID Qty: 60 1RF spironolactone [Aldactone] 100 mg tablet 100 mg PO DAILY Qty: 90 8RF furosemide [Lasix] 20 mg tablet 20 mg PO DAILY Qty: 30 4RF thiamine mononitrate (vit B1) [Vitamin B-1 (mononitrate)] 100 mg tablet 100 mg PO DAILY Qty: 30 4RF Xifaxan 550 mg tablet 550 mg PO BID Qty: 60 2RF pantoprazole [Protonix] 40 mg tablet,delayed release (DR/EC) 40 mg PO BID Qty: 60 2RF sofosbuvir-velpatasvir [Epclusa] 400-100 mg tablet 1 tab PO DAILY 84 Days Qty: 90 0RF sucralfate [Carafate] 1 gram tablet 1 g PO BID Qty: 180 1RF albuterol sulfate 90 mcg/actuation HFA aerosol inhaler 2 inh INHALATION Q6H PRN (Reason: Shortness Of Breath) Qty: 8.5 2RF ondansetron 4 mg tablet,disintegrating 4 mg PO Q8H PRN (Reason: nausea and vomiting) Qty: 14 0RF acetaminophen [Tylenol Extra Strength] 500 mg Tablet 1,000 mg PO Q6H PRN (Reason: Pain) lactulose 10 gram/15 mL solution 45 ml PO TID PRN (Reason: Constipation) Spiriva with HandiHaler 18 mcg capsule, w/inhalation device 1 cap INHALATION QAM Discharge Orders: Discharge ED (Routine); Ordered 01/21/22 Ordered By: Saturnino Slaughter Referrals: Trenton Alas DO [Primary Care Provider] - Discharge Diet: Usual diet Discharge Activity: Resume usual activity Patient Instructions: Alcohol Dependence (ED), Opioid Safety Activity Restrictions/Additional Instructions: Abstain from alcohol. Recommend following up with [facility] , or attending AA meetings. Coding Level of Care Code ED Machine Maintenance Repairer for Chg Fwd Exam Comprehensive
[2022-01-21 06:29] LABS: Basophils # 0.1 10^3/uL (0.0-0.1); Basophils % 1.1 %; Eosinophils # 0.1 10^3/uL (0.0-0.8); Eosinophils % 1.1 %; Hematocrit 36.6 % (37.0-47.0); Hemoglobin 12.9 g/dL (11.5-15.3); Lymphocytes # 3.3 10^3/uL (0.8-4.8); Lymphocytes % 33.2 %; Mean Corpuscular HGB Conc 35.2 g/dL (30.0-36.0); Mean Corpuscular Hemoglobin 34.1 pg (28.0-34.0); Mean Corpuscular Volume 96.8 fl (81-99); Monocytes # 0.7 10^3/uL (0.2-0.9); Monocytes % 7.2 %; Neutrophils % 57.2 %; Nucleated Red Blood Cells % 0 %; Platelet Count 73 10^3/cmm (130-400); Red Blood Count 3.78 10^6/uL (4.1-5.3); Red Cell Distribution Width 16.6 % (12.1-15.1); White Blood Count 9.8 10^3/uL (4.0-10.0)
[2022-01-21] MEDS: haloperidol inj 5 mg/mL INJ 1 mL 2.5 MG IVP (06:29)
[2022-01-21] MEDS: sodium chloride 0.9% 1,000 ML 999 ML IV (06:29)
[2022-01-21 06:55] LABS: Alanine Aminotransferase 45 U/L (0-33); Albumin Level 3.7 g/dL (3.5-5.2); Alkaline Phosphatase 150 U/L (35-105); Anion Gap 17.4 (5-19); Aspartate Amino Transferase 171 U/L (0-32); Blood Urea Nitrogen 4 mg/dL (6-20); Calcium 8.3 mg/dL (8.5-10.5); Carbon Dioxide 25 mmol/L (22-29); Chloride 98 mmol/L (98-107); Globulin 4.4 g/dL (1.3-4.6); Glomerular Filtration Rate 102.3 mL/min (90-130); Glucose 130 mg/dL (65-115); Lipase 39 U/L (13-60); Osmolality Calculated 283 mOsm/kg (285-295); Potassium 3.4 mmol/L (3.5-5.1); Sodium 137 mmol/L (136-145); Total Bilirubin 1.4 mg/dL (0.15-1.2); Total Protein 8.1 g/dL (6.6-8.7)
[2022-01-21 06:56] LABS: Ammonia 45 umol/L (11-51)
[2022-01-21 07:01] LABS: INR 1.39 (0.8-1.2)
[2022-01-21] MEDS: pantoprazole 40 mg SDV 80 MG IVP (07:13)
[2022-01-21 07:32] VITALS: BP 128/78; PULSE 82; O2SAT 98
== END 2022-01-21 07:34 | disposition home or self-care (01) ==
PROVIDERS: Emergency Provider Family Medicine; PCP Family Medicine
DX: R18.8 Other ascites (principal); K74.60 Unspecified cirrhosis of liver; J44.9 Chronic obstructive pulmonary disease, unspecified; Z86.19 Personal history of other infectious and parasitic diseases; F17.210 Nicotine dependence, cigarettes, uncomplicated; F10.10 Alcohol abuse, uncomplicated
CPT/HCPCS: 80053; 82140; 83690; 85025; 85610; 85730; 96361; 96374; 96375; 99284; C9113; J1630; J7030

== ENCOUNTER → 2022-11-25 11:02 | Outpatient (BNVA) | payer MEDICAID, SELFPAY | PROVIDERS: PCP Family Medicine; Visit Provider Family Medicine | DX: E83.52 Hypercalcemia (principal); J44.9 Chronic obstructive pulmonary disease, unspecified; K74.60 Unspecified cirrhosis of liver; D69.6 Thrombocytopenia, unspecified; E83.42 Hypomagnesemia | CPT/HCPCS: 80053; 80061; 82306; 83036; 83735; 84443; 85025 ==

== ENCOUNTER → 2023-02-04 11:24 | Outpatient (BNVA) | payer MEDICAID, SELFPAY | PROVIDERS: PCP Family Medicine; Visit Provider Family Medicine | DX: E87.6 Hypokalemia (principal); E83.42 Hypomagnesemia; K74.60 Unspecified cirrhosis of liver; E83.52 Hypercalcemia | CPT/HCPCS: 80053; 82306; 83735 ==

== ENCOUNTER → 2023-03-26 09:04 | Outpatient (BNVA) | payer MEDICAID, SELFPAY | PROVIDERS: PCP Family Medicine; Visit Provider Family Medicine | DX: E87.6 Hypokalemia (principal); D69.6 Thrombocytopenia, unspecified; E83.42 Hypomagnesemia; K74.60 Unspecified cirrhosis of liver; E72.20 Disorder of urea cycle metabolism, unspecified | CPT/HCPCS: 80053; 82140; 82607; 82728; 82746; 83540; 83735; 85027; 85610 ==

== ENCOUNTER → 2023-05-22 10:45 | Day surgery (SDC) | payer MEDICAID, SELFPAY ==
--- NOTE | 2023-05-22 11:09 | US_ITS ---
WS: [id number] ULTRASOUND-GUIDED ULTRASOUND-GUIDED THERAPEUTIC AND DIAGNOSTIC PARACENTESIS Procedure, risks, and complications have been explained to the patient. Consent is obtained. Utilizing aseptic technique and 1% buffered lidocaine, a small dermatome was made through which a 5 F rench Yueh catheter was inserted. Approximately 1400 ml of clear peritoneal fluid was obtained witho ut difficulty. No complications encountered. Only a small amount of peritoneal fluid is identified. Specimen is collected for analysis as requeste d. IMPRESSION: Uncomplicated paracentesis yielding 1400 ml of peritoneal fluid.
[2023-05-22 11:12] VITALS: BP 112/63; PULSE 106; RESP 18; TEMP 36.9; O2SAT 99; BMI 19.8
[2023-05-22 12:12] LABS: Cyto Order Verification No Order
[2023-05-22 12:13] LABS: Color, Peritoneal Fluid Yellow (Pale Yellow)
[2023-05-22 12:14] LABS: Appearance, Peritoneal Fluid Hazy (Clear)
[2023-05-22 12:27] LABS: Basophils # 0.1 10^3/uL (0.0-0.1); Basophils % 1.1 %; Eosinophils # 0.1 10^3/uL (0.0-0.8); Eosinophils % 1.3 %; Hematocrit 26.3 % (36-47); Lymphocytes # 1.5 10^3/uL (0.8-4.8); Lymphocytes % 20.3 %; Mean Corpuscular HGB Conc 33.8 g/dL (30-55); Mean Corpuscular Hemoglobin 31.2 pg (27-33); Mean Corpuscular Volume 92.3 fl (85-98); Mean Platelet Volume 9.5 fL (7.4-10.4); Monocytes # 0.8 10^3/uL (0.2-0.9); Neutrophils # 5.01 10^3/uL (1.8-7.7); Neutrophils % 66.9 %; Nucleated Red Blood Cells % 0 %; Platelet Count 104 10^3/cmm (157-399); Red Blood Count 2.85 10^6/uL (3.85-5.65); Red Cell Distribution Width 23.4 % (12.1-15.1); White Blood Count 7.49 10^3/uL (3.29-11.43)
[2023-05-22 12:38] LABS: Mononuclear #, Pertinoneal Fl 0.398 10^3/uL; Polynuclear # Cells, Perit 0.033 10^3/uL
[2023-05-22 12:46] LABS: Alanine Aminotransferase 48 U/L (0-33); Albumin Level 3.3 g/dL (3.5-5.2); Alkaline Phosphatase 142 U/L (35-105); Aspartate Amino Transferase 130 U/L (0-32); Blood Urea Nitrogen 7 mg/dL (8-23); Calcium 8.7 mg/dL (8.5-10.5); Carbon Dioxide 22 mmol/L (22-29); Chloride 96 mmol/L (98-107); Globulin 3.8 g/dL (1.3-4.6); Glomerular Filtration Rate 63.9 mL/min (90-130); Glucose 124 mg/dL (65-115); Osmolality Calculated 271 mOsm/kg (285-295); Sodium 131 mmol/L (136-145); Total Protein 7.1 g/dL (6.6-8.7)
[2023-05-22 12:47] LABS: Ammonia 47 umol/L (11-51)
[2023-05-22 12:54] LABS: RBC Pertioneal Fluid 1 10^3/uL; WBC Peritoneal Fluid 431 /uL
[2023-05-22 13:13] LABS: Pathology Referral Yes
== END ==
LOC: GILAB 10:46
PROVIDERS: Radiology Diagnostic Radiology; PCP Family Medicine; Visit Provider Family Medicine
PROC: (CPT 49082; principal; 2023-05-22 12:00)
DX: R18.8 Other ascites (principal)
CPT/HCPCS: 36415; 49083; 80053; 80503; 82140; 85025; 89050

== ENCOUNTER 2023-07-14 20:28 | Inpatient (IN) | payer MEDICAID, SELFPAY ==
[2023-07-14] VITALS (15 sets, daily range): BP systolic 78–95; BP diastolic 35–61; PULSE 90–111; RESP 14–22; TEMP 36.3–36.4; O2SAT 89–98
--- NOTE | 2023-07-14 20:36 | ECG_ITS ---
[facility] Test Date: 2023-07-14 Pat Name: Susie Bassett Department: Room: ICU10 Gender: Female Manager Inpatient: : 1960 Requested By: Igor Avila Order Number: [id number] Markell MD: Lukas Rodriguez M.D. Measurements Intervals [place] Rate: 98 P: 62 ND: 182 QRS: 80 QRSD: 105 T: 48 QT: 356 QTc: 455 Interpretive Statements SINUS RHYTHM Compared to ECG 10/17/2021 11:16:27 Sinus tachycardia no longer present Electronically Signed On 07-14-2023 23:17:52 MANAGER ENERGY by Lukas Rodriguez M.D. [id number]
--- NOTE | 2023-07-14 20:36 | XRR_ITS ---
PROCEDURE INFORMATION: Exam: XR Chest Exam date and time: 07/14/2023 8:54 PM Age: 62 years old Clinical indication: Other: Weakness; Additional info: Hypotension TECHNIQUE: Imaging protocol: Radiologic exam of the chest. Views: 1 view. COMPARISON: CR XR chest 1V portable [id number] 10/17/2021 10:20 AM FINDINGS: Lungs: Mildly hyperinflated lungs. There are right mid and lower lung zone paramediastinal linear densities can represent atelectasis versus fibrotic changes. Retrocardiac atelectasis. Pleural spaces: Unremarkable. No pleural effusion. No pneumothorax. Heart/Mediastinum: See Lungs finding. Vasculature: There are aortic arch calcifications. Bones/joints: Moderate degenerative disease the right acromioclavicular joint. Chronic fracture deformity of the distal 3rd of the left clavicle. There is demineralization of the visualized bones. XR/XR chest 1V portable [id number] IMPRESSION: Bilateral basilar atelectatic/fibrotic changes.
--- NOTE | 2023-07-14 20:38 | ED_ITS ---
HPI - General Adult 2 General: Chief complaint: General Medical Stated complaint: WEAKNESS Time Seen by Provider: 07/14/23 20:36 History of Present Illness: Patient presents to the ER by EMS for hypotension and weakness. Patient states she is been weak and dizzy and had a fall earlier today. When EMS arrived there blood pressure was 77/27. Patient had about 300 mL normal saline in upon arrival to the ER blood pressure 78/47. Patient states her ascites is worse than normal and that she has had diarrhea for the last few days. Blood glucose 114 temperature 97.9. Otherwise patient has no complaints. Review of Systems 2 General: Reports: 10 or more systems reviewed and unremarkable except in HPI and below PFSH ED 2 PFSH: Medical History Liver cirrhosis Alcoholism Hepatitis C COPD (chronic obstructive pulmonary disease) Surgical History History of hysterectomy Family History Mother Lung cancer Father Hyperthermia Social History Smoking and tobacco/nicotine status: current every day tobacco/nicotine user cigarettes Alcohol intake: current Alcohol intake frequency: few times a week Substance/Drug Use: current Substance/Drug use frequency: daily Female Reproductive History: Spontaneous abortions: No Physical Exam 2 Const: COMMON NORMALS: no acute distress, average body habitus, patient oriented x3, no limitations, healthy appearing, alert and well nourished HENMT: COMMON NORMALS: normocephalic, atraumatic, hearing grossly normal bilaterally, external ears normal, Normal external nose present, moist oral mucous membranes and oropharynx normal HEAD & SCALP: normocephalic and atraumatic NOSE: Normal external nose present EXTERNAL EAR: Yes external ears normal Neck/C-Spine: COMMON NORMALS: full ROM, no lymphadenopathy, supple, no meningeal signs and no JVD Chest: COMMONS NORMALS: normal inspection of the chest and normal palpation of entire chest wall Resp: COMMON NORMALS: normal respiratory effort, No retractions and No use of accessory muscles; negative for clear to auscultation bilaterally (Right lung diffuse rhonchi, left lung clear to auscultation) AUSCULTATION: not clear to auscultation bilaterally (Right lung diffuse rhonchi, left lung clear to auscultation) Cardio: COMMON NORMALS: no JVD, regular rate, regular rhythm, S1 normal heart sound present, S2 normal heart sound present, No gallops present (Cardio), No clicks present (Cardio), No murmurs present (Cardio) and No rub (Cardio) R ATE: regular rate RHYTHM: regular rhythm HEART SOUNDS: S1 normal heart sound present and S2 normal heart sound present GI: COMMON NORMALS: Soft to palpation, non-tender and no masses; negative for Normal to inspection, nondistended, normoactive bowel sounds present (Moderately distended with normal active bowel sounds) PALPATION: Yes Soft to palpation Neuro: COMMON NORMALS: patient oriented x3 SENSORIUM/ORIENTATION: Yes alert MENINGEAL SIGNS: Yes no meningeal signs Course 2 Vital Signs: Vital signs: Vital Signs Temperature 97.6 F 07/14/23 20:33 Pulse Rate 90 07/14/23 21:03 Respiratory Rate 16 07/14/23 21:03 Blood Pressure 92/44 07/14/23 21:03 Pulse Oximetry 93 07/14/23 21:03 Oxygen Delivery Me thod Room Air 07/14/23 21:03 [facility] - General Adult Medical Decision Making Patient has lab work performed that revealed hemoglobin of 5.3 hematocrit of 15.7, sodium 122 chloride 93, potassium 6.7, BUN/creatinine of 26 and 3.3, patient was given 250 mL of D10, 10 units of IV insulin, 1 g of calcium gluconate, patient was typed and screened for 2 units of packed red cells. Dr. Hoffmann was consulted who agreed to place the patient in ICU for further evaluation and treatment. We will place the patient on Levophed due to her hypotension. Differential Diagnosis Anemia, hypotension, weakness, cirrhosis, kidney injury Medical Records I reviewed the patient's medical records. Lab Data I reviewed the patient's lab results. 07/14/23 20:15 07/14/23 20:15 Laboratory Results WBC 10.36 10^3/uL (3.29-11.43) 07/14/23 20:15 RBC 1.70 10^6/uL (3.85-5.65) L 07/14/23 20:15 Hgb 5.30 g/dL (11.27-16.99) L* 07/14/23 20:15 Hct 15.7 % (36-47) L* 07/14/23 20:15 MCV 92.4 fl (85-98) 07/14/23 20:15 MCH 31.2 pg (27-33) 07/14/23 20:15 MCHC 33.8 g/dL (30-55) 07/14/23 20:15 RDW 27.0 % (12.1-15.1) H 07/14/23 20:15 Plt Count 124 10^3/cmm (157-399) L 07/14/23 20:15 MPV 8.9 fL (7.4-10.4) 07/14/23 20:15 Neut % (Auto) 68.6 % 07/14/23 20:15 Lymph % (Auto) 10.7 % 07/14/23 20:15 Schuyler % (Auto) 19.4 % 07/14/23 20:15 Eos % (Auto) 0.1 % 07/14/23 20:15 Baso % (Auto) 0.5 % 07/14/23 20:15 Neut # (Auto) 7.11 10^3/uL (1.8-7.7) 07/14/23 20:15 Lymph # (Auto) 1.1 10^3/uL (0.8-4.8) 07/14/23 20:15 Schuyler # (Auto) 2.0 10^3/uL (0.2-0.9) H 07/14/23 20:15 Eos # (Auto) 0.0 10^3/uL (0.0-0.8) 07/14/23 20:15 Baso # (Auto) 0.1 10^3/uL (0.0-0.1) 07/14/23 20:15 Nucleated RBC % (auto) 0.2 % 07/14/23 20:15 Nucleated RBCs # 0.0 /100WBC 07/14/23 20:15 Sodium 122 mmol/L (136-145) L 07/14/23 20:15 Potassium 6.7 mmol/L (3.5-5.1) H* 07/14/23 20:15 Chloride 93 mmol/L (98-107) L 07/14/23 20:15 Carbon Dioxide 11 mmol/L (22-29) L 07/14/23 20:15 Anion Gap 24.7 (5-19) H 07/14/23 20:15 BUN 26 mg/dL (8-23) H 07/14/23 20:15 Creatinine 3.3 mg/dL (0.5-0.9) H 07/14/23 20:15 GFR Calculation 14.3 mL/min (90-130) L 07/14/23 20:15 Glucose 92 mg/dL (65-115) 07/14/23 20:15 Calculated Osmolality 258 mOsm/kg (285-295) L 07/14/23 20:15 Calcium 8.0 mg/dL (8.5-10.5) L 07/14/23 20:15 Phosphorus 5.2 mg/dL (2.5-4.5) H 07/14/23 20:15 Magnesium 2.5 mg/dL (1.7-2.3) H 07/14/23 20:15 Total Bilirubin 1.9 mg/dL (0.15-1.2) H 07/14/23 20:15 AST 197 U/L (0-32) H 07/14/23 20:15 ALT 112 U/L (0-33) H 07/14/23 20:15 Alkaline Phosphatase 115 U/L (35-105) H 07/14/23 20:15 Ammonia 64 umol/L (11-51) H 07/14/23 20:15 Troponin T Baseline 23 ng/L (0-10) H 07/14/23 20:15 NT-Pro-B Natriuret Pep 676 pg/mL (0-125) H 07/14/23 20:15 Total Protein 6.0 g/dL (6.6-8.7) L 07/14/23 20:15 Albumin 3.1 g/dL (3.5-5.2) L 07/14/23 20:15 Globulin 2.9 g/dL (1.3-4.6) 07/14/23 20:15 All radiology interpretation(s) finalized by discharge EKG Data EKG 1: I personally reviewed and interpreted this EKG as follows: EKG interpretation date: 07/14/23 EKG interpretation time: 20:34 Prior EKG tracings: not available for review Interpretation: Ventricular rate 98 bpm, MT interval 182, QRS duration 105, QTc of 411, sinus rhythm Critical Care Time 2 Critical Care Time: Critical Care Time: Yes Total Critical Care Time: 30 Attestation: The patient was emergently evaluated this patient's presentation and case had a high probability of a clinically significant, sudden, or life-threatening deterioration of the patient's initial critical presentation or condition which required my full and direct attention, intervention and personal management. Discharge Plan Discharge Patient Disposition: Admitted As Inpatient Clinical Impression: Acute hyperkalemia, Abdominal ascites, Cirrhosis of liver, Anemia, Acute renal failure, Acute hypotension Condition: Stable Prescriptions: No Action sulfamethoxazole-trimethoprim [Bactrim DS] 800-160 mg tablet 1 tab PO DAILY Qty: 30 2RF thiamine mononitrate (vit B1) [Vitamin B-1 (mononitrate)] 100 mg tablet 100 mg PO DAILY Qty: 30 4RF rifaximin 550 mg tablet 550 mg PO BID Qty: 60 5RF spironolactone 100 mg tablet 100 mg PO DAILY Qty: 90 1RF pregabalin [Lyrica] 25 mg capsule 25 mg PO DAILY Qty: 30 0RF Rx Instructions: Take one capsule daily at bedtime. acetaminophen [Tylenol Extra Strength] 500 mg Tablet 1,000 mg PO Q6H PRN (Reason: Pain) multivitamin Tablet 1 tab PO DAILY magnesium 250 mg Tablet 250 mg PO DAILY Advair Diskus 250-50 mcg/dose blister with device 1 inh inhalation BID Rx Instructions: USE ONE inhalation TWICE DAILY potassium chloride 20 mEq tablet,ER particles/crystals 20 meq PO DAILY Rx Instructions: TAKE 1 TABLET BY MOUTH EVERY DAY WITH LASIX. pantoprazole 40 mg tablet,delayed release (DR/EC) 40 mg PO BID Rx Instructions: TAKE 1 TABLET BY MOUTH TWICE DAILY furosemide 20 mg tablet 20 mg PO DAILY Rx Instructions: TAKE 1 TABLET BY MOUTH EVERY DAY Ventolin HFA 90 mcg/actuation HFA aerosol inhaler 2 puff inhalation Q6H PRN (Reason: Shortness Of Breath Or Wheezing) Rx Instructions: INHALE TWO PUFFS EVERY 6 HOURS NEEDED FOR SHORTNESS OF BREATH or wheezing ondansetron 4 mg tablet,disintegrating 4 mg PO Q8H PRN (Reason: Nausea And Vomiting) Rx Instructions: DISSOLVE ONE TABLET BY MOUTH EVERY 8 HOURS NEEDED FOR NAUSEA AND VOMITING tiotropium bromide [Spiriva with HandiHaler] 18 mcg capsule, w/inhalation device 1 cap inhalation DAILY Rx Instructions: inhale contents of ONE capsule using device every morning Referrals: Trenton Alas DO [Primary Care Provider] - Coding Level of Care Code ED [employer]r for Cathy Donald
[2023-07-14 20:53] LABS: Basophils # 0.1 10^3/uL (0.0-0.1); Basophils % 0.5 %; Eosinophils % 0.1 %; Lymphocytes # 1.1 10^3/uL (0.8-4.8); Lymphocytes % 10.7 %; Mean Corpuscular HGB Conc 33.8 g/dL (30-55); Mean Corpuscular Hemoglobin 31.2 pg (27-33); Mean Corpuscular Volume 92.4 fl (85-98); Mean Platelet Volume 8.9 fL (7.4-10.4); Monocytes % 19.4 %; Neutrophils # 7.11 10^3/uL (1.8-7.7); Neutrophils % 68.6 %; Nucleated Red Blood Cells % 0.2 %; Platelet Count 124 10^3/cmm (157-399); White Blood Count 10.36 10^3/uL (3.29-11.43)
[2023-07-14 21:07] LABS: Troponin(5th) Baseline 23 ng/L (0-10)
[2023-07-14 21:13] LABS: Ammonia 64 umol/L (11-51)
[2023-07-14 21:21] LABS: Alanine Aminotransferase 112 U/L (0-33); Albumin Level 3.1 g/dL (3.5-5.2); Alkaline Phosphatase 115 U/L (35-105); Anion Gap 24.7 (5-19); Aspartate Amino Transferase 197 U/L (0-32); Blood Urea Nitrogen 26 mg/dL (8-23); Carbon Dioxide 11 mmol/L (22-29); Chloride 93 mmol/L (98-107); Creatinine Clr Calc Pharmacy 15.2181; Globulin 2.9 g/dL (1.3-4.6); Glomerular Filtration Rate 14.3 mL/min (90-130); Glucose 92 mg/dL (65-115); Hematocrit 15.7 % (36-47); Magnesium 2.5 mg/dL (1.7-2.3); NT Pro B Type Natriuretic Pept 676 pg/mL (0-125); Osmolality Calculated 258 mOsm/kg (285-295); Phosphorus 5.2 mg/dL (2.5-4.5); Sodium 122 mmol/L (136-145); Total Bilirubin 1.9 mg/dL (0.15-1.2)
[2023-07-14 21:23] LABS: Potassium 6.7 mmol/L (3.5-5.1)
[2023-07-14] MEDS: calcium gluconate 0.1 gm/mL 10% SDV 10mL 1 GM IVP (21:40)
[2023-07-14] MEDS: insulin regular-human 100 units/1 mL 10 UNIT IVP (21:41)
[2023-07-14 21:47] LABS: Procalcitonin 0.24 ng/mL (0-0.5)
[2023-07-14 21:50] LABS: Lactic Sepsis W/Reflex 6.7 mmol/L (0.5-2.2)
[2023-07-14 22:10] LABS: Troponin 5 2HR 19.69 ng/L (0-10)
[2023-07-14 22:19] LABS: Troponin 5 2HR Delta -3.31 ABS# (0-10)
[2023-07-14] MEDS: albumin 25 G/100 ML BAG 60 G IV (22:58)
[2023-07-14] MEDS: norepinephrine 4 MG/250 ML BAG 7.5 MG IV (23:05)
[2023-07-14 23:13] LABS: Reflex Lactate Order REFLEX LACTIC ORDERD
[2023-07-14 23:19] LABS: Lactic Sepsis W/Reflex 6.6 mmol/L (0.5-2.2)
--- NOTE | 2023-07-14 23:30 | P.HP_ITS ---
Providers/Chief Complaint 2 Admitting Physician: Dasia Hoffmann MD Primary Care Provider: Trenton Alas DO Chief Complaint: WEAKNESS History of Present Illness Susie Bassett is a 62 year old female With a known past medical history of liver cirrhosis attributed to alcohol abuse. She presents to the hospital today via EMS for increased generalized weakness, hypotension. States she has been feeling very dizzy, unable to carry out her daily activities. Upon ER arrival she was noted to be hypotensive with blood pressure of 78/47. She reports she has had increasing abdominal distention over the past week. She undergoes frequent paracentesis as outpatient with Dr. Dumont. Most recent paracentesis was 4 to 5 days ago at which time she states only 2 bottles were able to be removed whereas typically she gets much higher volumes out. There was suspected bladder injury at the time of paracentesis most recently. She denies any dysuria. Denies any hematuria. She was noted to be having urinary retention today and more than 350 cc for which Sales catheter was placed. She has multiple lab abnormalities today including severe anemia. Hemoglobin at 5.5. Patient states she has longstanding anemia, with baseline hemoglobin between 8.9-10. She denies any hematemesis or melena, however has a history of rectal prolapse with frequently bleeding hemorrhoids. Most recently she had rectal bleeding 2 days ago. States this was blood noted on the toilet paper without any large-volume in the toilet bowl. She denies any past history of GI bleeding. Does not get endoscopy evaluation routinely. Labs also notable for acute renal failure with creatinine at 3.3, previously normal at 0.9. No past history of kidney stones. Noted to have urinary retention today for which Sales catheter was placed, yielding 350 cc of urine. Typically takes Lasix every day along with spironolactone. She has recently also been on Bactrim for SBP ppx. Review of systems positive for abdominal pain related to distention. Denies any recent fever chills nausea vomiting. Review of Systems 2 General: Reports: 10 or more systems reviewed and unremarkable except in HPI and below Const: Denies: fever(s), chills or body aches Eyes: Denies: change in vision, blurry vision or photophobia ENMT: Reports: hoarseness; Denies: throat pain, enlarged tonsils, odynophagia or nasal congestion Card: Denies: chest pain, palpitations, irregular heart rhythm, edema, swelling of feet/ankles, lightheadedness, pre-syncope, dyspnea on exertion or orthopnea Resp: Denies: dyspnea, productive cough, non-productive cough, wheezing, stridor, pain on inspiration, change in phlegm color, hemoptysis or chest congestion GI: Denies: abdominal pain, nausea, vomiting, hematemesis, coffee ground emesis, dysphagia, heartburn, diarrhea, constipation, GI cramping, change in stool character, hematochezia or melena : Denies: flank pain, difficulty voiding, dysuria, urinary frequency, urinary urgency, urinary hesitancy or hematuria Musc: Denies: neck pain, back pain, extremity pain, joint swelling, joint warmth or deformity Neuro: Denies: headache(s), numbness in extremities, weakness in extremities, sensory changes, difficulty walking, frequent falls, dizziness, vertigo, behavioral changes, Slurred speech present or seizure-like activity Psych: Denies: anxiety, depression, suicidal ideation or homicidal ideation Endo: Denies: polyuria, polydipsia, tired all the time, cold intolerance or hot flashes Henry/Lymph: Denies: easy bruising or easy bleeding Medications/Allergies Home Medications Medication Instructions Recorded Confirmed Last Taken Type acetaminophen 500 mg tablet 1,000 mg PO Q6H PRN Pain 05/18/20 07/15/23 05/22/23 History (Tylenol Extra Strength) thiamine mononitrate (vit B1) 100 100 mg PO DAILY #30 tabs 10/31/21 07/15/23 Unknown Rx mg tablet (Vitamin B-1 (mononitrate)) albuterol sulfate 90 mcg/actuation 2 puff inhalation Q6H PRN 05/20/23 07/15/23 Unknown History aerosol inhaler (Ventolin HFA) Shortness Of Breath Or Wheezing fluticasone 250 mcg-salmeterol 50 1 inh inhalation BID 05/20/23 07/15/23 05/20/23 History mcg/dose blistr powdr for inhalation (Advair Diskus) furosemide 20 mg tablet 20 mg PO DAILY 05/20/23 07/15/23 05/22/23 History magnesium 250 mg tablet 250 mg PO DAILY 05/20/23 07/15/23 05/22/23 History multivitamin 1 tab PO DAILY 05/20/23 07/15/23 05/22/23 History ondansetron 4 mg disintegrating 4 mg PO Q8H PRN Nausea And Vomiting 05/20/23 07/15/23 05/22/23 History tablet pantoprazole 40 mg tablet,delayed 40 mg PO BID 05/20/23 07/15/23 05/22/23 History release potassium chloride 20 mEq 20 meq PO DAILY 05/20/23 07/15/23 05/22/23 History tablet,extended release(part/cryst) rifaximin 550 mg tablet 550 mg PO BID #60 tabs 05/20/23 07/15/23 05/22/23 Rx tiotropium bromide 18 mcg capsule 1 cap inhalation DAILY 05/20/23 07/15/23 05/22/23 History with inhalation device (Spiriva with HandiHaler) sulfamethoxazole 800 1 tab PO DAILY #30 tabs 06/03/23 07/15/23 Unknown Rx mg-trimethoprim 160 mg tablet (Bactrim DS) spironolactone 100 mg tablet 100 mg PO DAILY #90 tabs 06/23/23 07/15/23 Unknown Rx pregabalin 25 mg capsule (Lyrica) 25 mg PO DAILY #30 caps 06/27/23 07/15/23 Unknown Rx Allergies Allergy/AdvReac Type Severity Reaction Status Date / Time codeine Allergy ALGY-Hives Verified 06/03/23 09:49 PFSH Acute 2 PFSH: Medical History Liver cirrhosis Alcoholism Hepatitis C COPD (chronic obstructive pulmonary disease) Surgical History History of hysterectomy Family History Mother Lung cancer Father Hyperthermia Social History Smoking and tobacco/nicotine status: current every day tobacco/nicotine user cigarettes Alcohol intake: current Alcohol intake frequency: few times a week Substance/Drug Use: current Substance/Drug use frequency: daily Female Reproductive History: Spontaneous abortions: No Vitals/I&O/Wt Last Vital Signs Temp 97.2 F L 07/15/23 00:57 Pulse 96 07/15/23 00:57 Resp 15 07/15/23 00:57 BP 102/56 07/15/23 00:57 Pulse Ox 97 07/15/23 00:57 O2 Del Method Nasal Cannula 07/14/23 22:20 07/14/23 07/14/23 07/15/23 14:59 22:59 06:59 Intake Total 0 / 0 258.250 / 258.250 Balance 0 / 0 258.250 / 258.250 Weight last 48 hrs Weight 60.781 kg Weight 61.235 kg Physical Exam 2 Narrative: General: No acute distress, AO x3, chronically ill-appearing HEENT: PERRLA, pupils bilaterally equal and reactive, pallors not present, cheilosis present Chest: Normal vesicular breath sounds, no added sounds, equal good air entry bilaterally CVS: S1-S2 regular, no murmurs, no tachycardia, no gallops, no rubs Abdomen: Soft, distended, fluid thrill present Neuro: No focal deficits, no facial deformity, AO x3, power 5/5 in all limbs Extremities: Bilateral lower extremity pitting edema Urinary Catheter Management: Sales: Cath Placed During This Visit: yes Urinary Catheter Date of Insertion: 07/15/23 Urinary Catheter Time of Insertion: 01:00 Data 07/14/23 20:15 07/14/23 20:15 Micro: Microbiology 07/14/23 22:51 Blood Culture - Preliminary Blood SPECIMEN COLLECTED 07/14/23 22:49 Blood Culture - Preliminary Blood SPECIMEN COLLECTED Other data: [address] [address] XRay Report Signed Patient: Susie Bassett Unit #: [id number] : 1960 Age/Sex: 62 / F ADM Date: 07/14/23 Loc: ER Room/Bed: Attending Dr: Ordering Provider/Ordering MD: Igor Avila DO Date of Service: 07/14/23 Procedure(s): XR chest 1V portable [id number] Accession Number(s): [id number] Report Number: [id number] PROCEDURE INFORMATION: Exam: XR Chest Exam date and time: 07/14/2023 8:54 PM Age: 62 years old Clinical indication: Other: Weakness; Additional info: Hypotension TECHNIQUE: Imaging protocol: Radiologic exam of the chest. Views: 1 view. COMPARISON: CR XR chest 1V portable [id number] 10/17/2021 10:20 AM FINDINGS: Lungs: Mildly hyperinflated lungs. There are right mid and lower lung zone paramediastinal linear densities can represent atelectasis versus fibrotic changes. Retrocardiac atelectasis. Pleural spaces: Unremarkable. No pleural effusion. No pneumothorax. Heart/Mediastinum: See Lungs finding. Vasculature: There are aortic arch calcifications. Bones/joints: Moderate degenerative disease the right acromioclavicular joint. Chronic fracture deformity of the distal 3rd of the left clavicle. There is demineralization of the visualized bones. XR/XR chest 1V portable [id number] IMPRESSION: Bilateral basilar atelectatic/fibrotic changes. A&P Assessment and plan (1) Acute anemia: (2) Cirrhosis of liver: Qualifiers: Ascites presence: with ascites Hepatic cirrhosis type: unspecified hepatic cirrhosis Qualified Code(s): K74.60 - Unspecified cirrhosis of liver; R18.8 - Other ascites (3) Rectal prolapse: (4) Bleeding per rectum: (5) Chronic alcohol use: (6) Acute hypotension: (7) Hyperammonemia: (8) Abdominal ascites: Qualifiers: Ascites type: due to alcoholic cirrhosis Qualified Code(s): K70.31 - Alcoholic cirrhosis of liver with ascites (9) Acute renal failure: Qualifiers: Acute renal failure type: unspecified Qualified Code(s): N17.9 - Acute kidney failure, unspecified (10) Acute hyperkalemia: (11) COPD (chronic obstructive pulmonary disease): Qualifiers: COPD type: chronic bronchitis Plan 62-year-old lady with known liver cirrhosis presenting today with hypotension, acute on chronic anemia with hemoglobin at 5.3, recent history of rectal bleeding, acute renal failure, acute hyperkalemia. # Acute on chronic anemia Hemoglobin today at 5.3, lower than baseline between 8.9-10. Suspect this may be related to recent history of bleeding from known rectal prolapse and hemorrhoids. Denies any melena. No past history of known GI bleeding. Has never had an endoscopic evaluation to assess for varices. Ordered for 2 units of packed red blood cell transfusion Recheck H&H posttransfusion. Would likely need endoscopic evaluation as outpatient if no active bleeding encountered during course of admission. # Acute hypotension Necessitated starting Levophed infusion, currently at 8 mics May be related to acutely worsening anemia from recent blood loss Additionally may be related to third spacing from known liver disease, possible hepatorenal syndrome Cannot rule out possibility of SBP given abdominal pain, elevated lactate Start ceftriaxone 1 g IV every 24 hours empirically while awaiting paracentesis # Acute renal failure Suspect multifactorial related to ATN from hypotension, hepatorenal syndrome, recent initiation of Bactrim, Aldactone. Discontinue Bactrim and Aldactone, avoid other nephrotoxins Check UA Maintain MAP greater than 65 to maintain renal perfusion. Check CT of the abdomen and pelvis. Patient verbally reports suspected bladder injury while undergoing most recent paracentesis last week, will check CT abdomen and pelvis to assess for bladder injury and or hydronephrosis. May additionally be related to urinary retention, Sales catheter placed yielding 350 cc urine. # Acute hyperkalemia Related to acute renal failure, additional home use of supplemental potassium. Received calcium gluconate, insulin dextrose in the emergency room recheck with these interventions. monitor on telemetry for arrhythmias # Elevated lactate: Likely related to chronic liver disease. Ceftriaxone 1 g IV every 24 hours while undergoing infectious evaluation. Check blood cultures # Abdominal ascites Ordered for ultrasound-guided paracentesis with IR in AM. Check acetic fluid cell count to evaluate for SBP. # Elevated ammonia, continue rifaximin 550 mg twice daily. Patient reports she does not take lactulose due to rectal prolapse. # Chronic alcohol abuse, last drink 2 days ago. CIWA monitoring # COPD, not currently ecacerbated. Duoneb q6h inhalation ppx: protonix 40mg BID DVT ppx: SCD only, no a/c due to bleeding, anemia Full code Attestations 2 Medical Necessity Statement*: > 2 midnight admission anticipated Critical Care Time: The high probability of a clinically significant, sudden or life threatening deterioration of the patient's [GI, cardiovascular, heme ] system(s) required my full and direct attention, intervention and personal management. The critical care time is as shown. This time is in addition to time spent performing any reported procedures but includes the following: [x] Data and vital sign review and interpretation [x] Patient assessment, examination and intervention [x] Documentation [x] Medication orders and management Critical Care Time (min): 60 Coding Level of Care Code Critical Care >/= 30 minutes Diagnoses Acute anemia D64.9 Cirrhosis of liver K74.60; R18.8 Ascites presence: with ascites Hepatic cirrhosis type: unspecified hepatic cirrhosis Rectal prolapse K62.3 Bleeding per rectum K62.5 Chronic alcohol use Z72.89 Acute hypotension I95.9 Hyperammonemia E72.20 Ascites due to alcoholic cirrhosis K70.31 Ascites type: due to alcoholic cirrhosis Acute renal failure N17.9 Acute renal failure type: unspecified Acute hyperkalemia E87.5 COPD (chronic obstructive pulmonary disease) J44.9 COPD type: chronic bronchitis
[2023-07-15] VITALS (101 sets, daily range): BP systolic 79–149; BP diastolic 44–94; PULSE 96–115; RESP 13–239; TEMP 36.1–38.2; O2SAT 89–99
[2023-07-15 00:42] LABS: Reflex Lactate Order REFLEX LACTIC ORDERD
[2023-07-15 01:24] LABS: Add Urine Microscopic? YES; Bilirubin Urine 1+ (Negative); Blood Urine Neg (Negative); Glucose Urine UA Norm (Normal); Ketones Urine 1+ (Negative); Leukocyte Esterase Urine Negative (Negative); Nitrate Urine Negative (Negative); Protein Urine Trace (Negative); Specific Gravity, Urine 1.015 (1.005-1.030); Urine Appearance Clear (CLEAR); Urine Color Yellow (Yellow); Urobilinogen Urine Neg (Negative); pH Urine 5 (5-7)
[2023-07-15 01:25] LABS: Add Urine Culture? No; Bacteria Urine TRACE /hpf; Mucus Urine TRACE /hpf
--- NOTE | 2023-07-15 01:53 | PC.NURSE ---
pt care pt arrived to unit. this nurse was asking admission questions when notified blood was ready for transfusion. this nurse verified blood and began transfusion. pt bp had been stable but 3 consistent readings of undesirable maps and this nurse started ordered norepi. this nurse also did a bladder scan d/t pt complaint of abdominal pain and some hx of potential bladder damage. approx 50 mls per scan. this nurse obtained orders from physician for van and updated her on pt status.
[2023-07-15] MEDS: morphine 4 mg/mL SDV 1 mL 2 MG IVP (01:59)
--- NOTE | 2023-07-15 02:01 | US_ITS ---
WS: [id number] ULTRASOUND-GUIDED THERAPEUTIC AND DIAGNOSTIC PARACENTESIS Procedure, risks, and complications have been explained to the patient. Consent is obtained. Utilizing aseptic technique and 1% buffered lidocaine, a small dermatome was made through which a 5 F rench Yueh catheter was inserted. Approximately 900 ml of slightly yellow peritoneal fluid was obtain ed without difficulty. No complications encountered. IMPRESSION: Uncomplicated paracentesis yielding 900 ml of peritoneal fluid. Fluid specimen collected for analysis.
--- NOTE | 2023-07-15 02:01 | CT_ITS ---
WS: [id number] CT ABDOMEN PELVIS TECHNIQUE: Noncontrast CT of the abdomen and pelvis with coronal and sagittal reformatted images. CLINICAL INFORMATION: Acute kidney injury,evaluate for hydronephrosis COMPARISON: None. DLP: 480.[address] scans at [facility] use at least one of these dose optimization techniques: automated e xposure control; mA and/or kV adjustment per patient size (includes targeted exams where dose is matc hed to clinical indication); or iterative reconstruction. FINDINGS: Cirrhotic liver. Small esophageal hiatal hernia. Gastroesophageal varices in the upper abdomen. Jessica l noncontrast spleen. Small bilateral pleural effusions with compressive atelectasis in the lung base s. Cholelithiasis. Normal noncontrast pancreas. Adrenal glands are normal. No hydronephrosis in eithe r kidney. Increased attenuation proteinaceous or hemorrhagic small LEFT renal cyst. Low-attenuation s mall LEFT renal cyst. Multiple pelvic phleboliths. No ureterectasis. Diffuse body wall anasarca. Mild perihepatic and perisplenic ascites. Mild ascites in the pelvis. Dif fuse mesenteric edema. Sales catheter. Rectal prolapse. Dense vascular calcification. Normal caliber abdominal aorta. Air distended stomach. Air distended transverse colon likely due to adynamic ileus. IMPRESSION: 1. Cirrhotic liver with gastroesophageal varices in the upper abdomen. 2. Diffuse body wall anasarca with mild ascites. 3. Small bilateral pleural effusions with compressive atelectasis in the lung bases. 4. Cholelithiasis. 5. No hydronephrosis in either kidney. 6. Rectal prolapse. 7. Air distended stomach. Air distended transverse colon likely due to adynamic ileus 8. Sales catheter in place.
[2023-07-15 02:02] LABS: Lactic Acid level (Lactate) 5.8 mmol/L (0.5-2.2)
[2023-07-15 02:43] LABS: Troponin 5 6HR 19.27 ng/L (0-10)
[2023-07-15 02:45] LABS: Troponin 5 6HR Delta -3.73 ng/L (0-12)
[2023-07-15 02:46] LABS: Albumin Level 3.5 g/dL (3.5-5.2); Alcohol Level 246 mg/dL (0-10); Alkaline Phosphatase 130 U/L (35-105); Blood Urea Nitrogen 26 mg/dL (8-23); Calcium 8.3 mg/dL (8.5-10.5); Chloride 94 mmol/L (98-107); Creatinine Clr Calc Pharmacy 16.6828; Globulin 2.9 g/dL (1.3-4.6); Glomerular Filtration Rate 15.9 mL/min (90-130); Glucose 60 mg/dL (65-115); Osmolality Calculated 261 mOsm/kg (285-295); Sodium 124 mmol/L (136-145); Total Bilirubin 2.9 mg/dL (0.15-1.2); Total Protein 6.4 g/dL (6.6-8.7)
[2023-07-15 02:50] LABS: Alanine Aminotransferase 112 U/L (0-33); Anion Gap 29.3 (5-19); Aspartate Amino Transferase 225 U/L (0-32)
[2023-07-15 02:51] LABS: Carbon Dioxide 8 mmol/L (22-29); Potassium 7.3 mmol/L (3.5-5.1)
[2023-07-15] MEDS: midodrine 5 mg TABLET 10 MG PO ×2 (02:56→21:01)
[2023-07-15] MEDS: cefTRIAXone 1,000 MG in sodium chloride 0.9% (plus) 50 ML 100 MG IV (02:59)
[2023-07-15] MEDS: dextrose 10% 250 ML 1000 ML IV (03:56)
[2023-07-15] MEDS: ipratropium-albuterol 3 mL Neb INHALATION ×4 (03:56→20:04)
[2023-07-15] MEDS: ondansetron 2 mg/ML SDV 2 mL 4 MG IVP (04:04)
[2023-07-15] MEDS: sodium bicarbonate 8.4% 1 mEq/mL 50mL Syr 150 MEQ (04:06)
[2023-07-15] MEDS: dextrose 5%-sod chloride 0.9% 1,000 ML 50 ML (04:06)
[2023-07-15] MEDS: insulin regular-human 10 UNIT in SYRINGE 1 EACH 999 UNIT IVP (04:14)
[2023-07-15] MEDS: sodium polystyrene sulfonate 15 gm/60 mL Btl PO ×3 (04:20→20:58)
[2023-07-15 04:25] LABS: Basophils % 0.3 %; Hematocrit 25.8 % (36-47); Lymphocytes # 0.3 10^3/uL (0.8-4.8); Lymphocytes % 3.8 %; Mean Corpuscular HGB Conc 32.2 g/dL (30-55); Mean Corpuscular Hemoglobin 30.2 pg (27-33); Mean Corpuscular Volume 93.8 fl (85-98); Mean Platelet Volume 9.1 fL (7.4-10.4); Monocytes # 0.9 10^3/uL (0.2-0.9); Monocytes % 10.8 %; Neutrophils # 7.36 10^3/uL (1.8-7.7); Neutrophils % 84.3 %; Nucleated Red Blood Cells % 0.3 %; Platelet Count 110 10^3/cmm (157-399); Red Blood Count 2.75 10^6/uL (3.85-5.65); Red Cell Distribution Width 23.5 % (12.1-15.1); White Blood Count 8.73 10^3/uL (3.29-11.43)
[2023-07-15 04:41] LABS: Alanine Aminotransferase 105 U/L (0-33); Albumin Level 3.5 g/dL (3.5-5.2); Alkaline Phosphatase 107 U/L (35-105); Anion Gap 28.5 (5-19); Aspartate Amino Transferase 195 U/L (0-32); Blood Urea Nitrogen 26 mg/dL (8-23); Calcium 7.8 mg/dL (8.5-10.5); Chloride 90 mmol/L (98-107); Creatinine Clr Calc Pharmacy 16.1446; Globulin 2.5 g/dL (1.3-4.6); Glomerular Filtration Rate 15.3 mL/min (90-130); Glucose 216 mg/dL (65-115); Magnesium 2.4 mg/dL (1.7-2.3); Osmolality Calculated 259 mOsm/kg (285-295); Total Bilirubin 3.4 mg/dL (0.15-1.2)
[2023-07-15 04:43] LABS: Sodium 119 mmol/L (136-145)
[2023-07-15 04:44] LABS: Carbon Dioxide 7 mmol/L (22-29); Potassium 6.5 mmol/L (3.5-5.1)
[2023-07-15 05:01] LABS: Glucose Point of Care 139 mg/dL (70-110)
[2023-07-15] MEDS: LORazepam 2 mg/mL INJ 10 mL MDV IVP (05:12)
[2023-07-15] MEDS: calcium gluconate 0.9% NaCL 1 GM/50 ML PREMIX IV (06:30)
[2023-07-15] MEDS: albumin 25 G/100 ML BAG 60 G IV ×3 (06:34→22:04)
[2023-07-15] MEDS: insulin regular-human 10 UNIT in SYRINGE 1 EACH IVP (07:13)
[2023-07-15] MEDS: dextrose 10% 125 ML 750 ML IV ×2 (07:14→15:39)
[2023-07-15] MEDS: sodium bicarbonate 150 MEQ in sodium chloride 0.45% 1,000 ML 100 MEQ IV (07:15)
[2023-07-15] MEDS: norepinephrine 4 MG/250 ML BAG 22.5 MG IV (07:20)
[2023-07-15 07:45] LABS: Alanine Aminotransferase 104 U/L (0-33); Albumin Level 3.4 g/dL (3.5-5.2); Alkaline Phosphatase 120 U/L (35-105); Anion Gap 25.4 (5-19); Aspartate Amino Transferase 189 U/L (0-32); Blood Urea Nitrogen 26 mg/dL (8-23); Calcium 8.1 mg/dL (8.5-10.5); Carbon Dioxide 10 mmol/L (22-29); Chloride 92 mmol/L (98-107); Creatinine Clr Calc Pharmacy 16.7971; Globulin 2.5 g/dL (1.3-4.6); Glomerular Filtration Rate 15.9 mL/min (90-130); Glucose 105 mg/dL (65-115); Osmolality Calculated 257 mOsm/kg (285-295); Potassium 6.4 mmol/L (3.5-5.1); Sodium 121 mmol/L (136-145); Total Bilirubin 3.4 mg/dL (0.15-1.2); Total Protein 5.9 g/dL (6.6-8.7)
--- NOTE | 2023-07-15 08:30 | P.PN_ITS ---
Subjective 2 Subjective: History and physical reviewed. Patient awakens, says a few words and goes right back to sleep. No apparent pain. Daughter is at bedside. Discussed case with her in detail. Medications: Reviewed: Yes Vitals/I&O/Wt Last Vital Signs Temp 97.6 F 07/15/23 04:30 Pulse 111 H 07/15/23 06:22 Resp 21 H 07/15/23 06:15 BP 122/61 07/15/23 06:15 Pulse Ox 92 07/15/23 06:15 O2 Del Method Room Air 07/15/23 05:30 O2 Flow Rate 1 07/15/23 03:59 07/14/23 07/15/23 07/15/23 22:59 06:59 14:59 Intake Total 0 / 0 1008.350 / 1008.350 230.5 / 230.5 Balance 0 / 0 1008.350 / 1008.350 230.5 / 230.5 Weight last 48 hrs Weight 61.689 kg Weight 60.781 kg Weight 61.235 kg Physical Exam 2 Narrative: General exam is a sleepy white female, who quickly goes back to sleep after being stimulated. She can say a few words. Neck is supple Cardiovascular tachycardic, regular, no murmur Lungs clear Abdomen distended with ascites. A few bowel sounds are heard exam was deferred Extremities trace edema. No cyanosis or clubbing. Skin no rash Neuro no obvious focal deficits Urinary Catheter Management: Sales: Cath Placed During This Visit: yes Reason for Continuing Indwelling Catheter: Accurate Measurement of Urinary Output in Critically Ill Patients Urinary Catheter Date of Insertion: 07/15/23 Urinary Catheter Time of Insertion: 01:00 Data 07/15/23 04:17 07/15/23 07:19 Micro: Microbiology 07/14/23 22:51 Blood Culture - Preliminary Blood SPECIMEN COLLECTED 07/14/23 22:49 Blood Culture - Preliminary Blood SPECIMEN COLLECTED A&P Assessment and plan (1) Acute hyperkalemia: Patient presents with significant hyperkalemia. It is minimally better this morning. She has received calcium, insulin and glucose, and is currently on a bicarbonate drip. Continue to monitor closely Hold Aldactone also holding Bactrim which she was on as prophylaxis for SBP (2) Acute hyponatremia: Patient with significant hyponatremia She is not a candidate for significant diuresis currently even though she appears to be volume overloaded. She is third spacing. Continue hypertonic saline, bicarbonate drip as arranged by pharmacy. She is getting 150 mill equivalents of sodium per liter and this. Next sodium recheck at 930, then determination on following levels. (3) Acute hypotension: Currently on norepinephrine. Secondary to concern of hepatorenal syndrome this will need to be continued, trying to achieve a systolic of around 140. Secondary to this, and multiple other comorbidities a PICC line will be needed. Discussed with family. This will be safer than a large bore central line currently secondary to the patient's liver disease, propensity to bleed. I have ordered an INR. This may also be more ideal as she may require hemodialysis and access will be needed to the central veins in her neck. (4) Acute renal failure: Significant acute kidney injury Associated with liver disease, may have hepatorenal syndrome. Continue norepinephrine. Continue albumin. Sales to monitor output Add octreotide secondary to concern of SBP associated with renal failure. Qualifiers: Acute renal failure type: unspecified Qualified Code(s): N17.9 - Acute kidney failure, unspecified (5) Acute anemia: Patient presented with acute anemia. Await CT abdomen pelvis secondary symptoms and some bruising on her left side. Has not had previous EGD to look for varices, but has had blood per rectum secondary to rectal prolapse. She has been transfused and hemoglobin currently above 8. No further transfusion at this time. Monitor closely for bleeding. Repeat CBC later this afternoon. (6) Hyperammonemia: Continue rifaximin. Lactulose has not been given secondary to history of rectal prolapse (7) Abdominal ascites: Patient with significant ascites. Cannot rule out SBP. Abdominal paracentesis per radiology. Changed Rocephin to meropenem secondary to severity of illness. Add vancomycin. Blood cultures were drawn on admission. Qualifiers: Ascites type: due to alcoholic cirrhosis Qualified Code(s): K70.31 - Alcoholic cirrhosis of liver with ascites (8) Chronic alcohol use: Patient with chronic alcohol use. [facility] protocol initiated. (9) COPD (chronic obstructive pulmonary disease): DuoNeb as needed Qualifiers: COPD type: chronic bronchitis (10) Liver cirrhosis: Significant cirrhosis, with creasing bilirubin. Continue supportive care. Last drink days ago. Qualifiers: Ascites presence: with ascites Hepatic cirrhosis type: alcoholic cirrhosis Qualified Code(s): K70.31 - Alcoholic cirrhosis of liver with ascites Plan Other medical problems as outlined in past medical history Full code SCDs for DVT prophylaxis, anticoagulation contraindicated secondary to severe anemia Protonix for GI prophylaxis Attestations 2 Medical Necessity Statement*: Needs continued hospitalization secondary to multiple organ failure, hypotension Critical Care Time: The high probability of a clinically significant, sudden or life threatening deterioration of the patient's [hepatic, renal, neurologic, infectious] s ystem(s) required my full and direct attention, intervention and personal management. The critical care time is as shown. This time is in addition to time spent performing any reported procedures but includes the following: [x] Data and vital sign review and interpretation [x] Patient assessment, examination and intervention [x] Documentation [x] Medication orders and management Critical Care Time (min): 54 Coding Level of Care Code Critical Care >/= 30 minutes Critical care time (in minutes): 54 The high probability of a clinically significant, sudden or life threatening deterioration, as referenced in this documentation, required my full and direct attention, intervention and personal management. The critical care time shown is in addition to time spent performing any reported separately billable procedures and includes the following: [x] Data and vital sign review and interpretation [x ] Patient assessment, examination and intervention [x] Medication orders and management [x] Patient/Family updates as able [x] Care Coordination and Documentation. Diagnoses Acute hyperkalemia E87.5 Acute hyponatremia E87.1 Acute hypotension I95.9 Acute renal failure N17.9 Acute renal failure type: unspecified Acute anemia D64.9 Hyperammonemia E72.20 Ascites due to alcoholic cirrhosis K70.31 Ascites type: due to alcoholic cirrhosis Chronic alcohol use Z72.89 COPD (chronic obstructive pulmonary disease) J44.9 COPD type: chronic bronchitis Alcoholic cirrhosis of liver with ascites K70.31 Ascites presence: with ascites Hepatic cirrhosis type: alcoholic cirrhosis
[2023-07-15] MEDS: vancomycin 750 MG in sodium chloride 0.9% 250 ML 250 MG IV (08:50)
[2023-07-15 09:37] LABS: INR 1.56 (0.8-1.2)
[2023-07-15 09:41] LABS: Anion Gap 23.2 (5-19); Blood Urea Nitrogen 26 mg/dL (8-23); Calcium 7.9 mg/dL (8.5-10.5); Carbon Dioxide 12 mmol/L (22-29); Chloride 93 mmol/L (98-107); Creatinine Clr Calc Pharmacy 16.7971; Glomerular Filtration Rate 15.9 mL/min (90-130); Glucose 65 mg/dL (65-115); Osmolality Calculated 257 mOsm/kg (285-295); Potassium 6.2 mmol/L (3.5-5.1); Sodium 122 mmol/L (136-145)
[2023-07-15] MEDS: meropenem 1,000 MG in sodium chloride 0.9% (plus) 50 ML 100 MG IV ×2 (09:58→16:41)
[2023-07-15] MEDS: octreotide 500 MCG in sodium chloride 0.9% (100 ml) 100 ML 10.0999999999999996 MCG IV ×2 (10:00→19:07)
[2023-07-15] MEDS: pantoprazole 40 mg SDV IVP ×2 (10:00→20:45)
--- NOTE | 2023-07-15 10:20 | P.CONIM_ITS ---
Providers/Reason For Consult 2 Consulting Physician/Specialty*: kommana/nephrology Reason for Consult*: JEYSON , hyperkalemia Attending Physician: Finesse Gramajo MD Primary Care Provider: Trenton Alas DO History of Present Illness History of Present Illness Susie Bassett is a 62 year old female Patient is a 62-year-old female with past medical history of known liver cirrhosis from alcohol was brought to the emergency department via EMS due to hypotension and generalized weakness. Patient complained of being dizzy and EMS was called and patient was noted to be hypotensive with a blood pressures in the 70s. She required 3 frequent paracentesis and last 1 was about 4 to 5 days ago. Lab data is significant for hemoglobin of 5.5 denies any hematemesis or melena. Also has JEYSON with a creatinine of 3.3, hyponatremia with a sodium of 122, bicarbonate was low at 7. Has made urine about 300 cc since presentation. Patient was on Lasix and spironolactone at home which are currently on hold also received recently Bactrim for SBP prophylaxis. Patient currently received 2 units of blood on low-dose of pressors-4 mics of Levophed. Currently on 1 to 2 L of nasal cannula, appears lethargic. She is also on bicarbonate drip. Patient's daughter at bedside who provided some history. Review of Systems 2 Narrative: Unable to obtain full review of system assessment Medications/Allergies Home Medications Medication Instructions Recorded Confirmed Last Taken Type acetaminophen 500 mg tablet 1,000 mg PO Q6H PRN Pain 05/18/20 07/15/23 05/22/23 History (Tylenol Extra Strength) thiamine mononitrate (vit B1) 100 100 mg PO DAILY #30 tabs 10/31/21 07/15/23 Unknown Rx mg tablet (Vitamin B-1 (mononitrate)) albuterol sulfate 90 mcg/actuation 2 puff inhalation Q6H PRN 05/20/23 07/15/23 Unknown History aerosol inhaler (Ventolin HFA) Shortness Of Breath Or Wheezing fluticasone 250 mcg-salmeterol 50 1 inh inhalation BID 05/20/23 07/15/23 05/20/23 History mcg/dose blistr powdr for inhalation (Advair Diskus) furosemide 20 mg tablet 20 mg PO DAILY 05/20/23 07/15/23 05/22/23 History magnesium 250 mg tablet 250 mg PO DAILY 05/20/23 07/15/23 05/22/23 History multivitamin 1 tab PO DAILY 05/20/23 07/15/23 05/22/23 History ondansetron 4 mg disintegrating 4 mg PO Q8H PRN Nausea And Vomiting 05/20/23 07/15/23 05/22/23 History tablet pantoprazole 40 mg tablet,delayed 40 mg PO BID 05/20/23 07/15/23 05/22/23 History release potassium chloride 20 mEq 20 meq PO DAILY 05/20/23 07/15/23 05/22/23 History tablet,extended release(part/cryst) rifaximin 550 mg tablet 550 mg PO BID #60 tabs 05/20/23 07/15/23 05/22/23 Rx tiotropium bromide 18 mcg capsule 1 cap inhalation DAILY 05/20/23 07/15/23 05/22/23 History with inhalation device (Spiriva with HandiHaler) sulfamethoxazole 800 1 tab PO DAILY #30 tabs 06/03/23 07/15/23 Unknown Rx mg-trimethoprim 160 mg tablet (Bactrim DS) spironolactone 100 mg tablet 100 mg PO DAILY #90 tabs 06/23/23 07/15/23 Unknown Rx pregabalin 25 mg capsule (Lyrica) 25 mg PO DAILY #30 caps 06/27/23 07/15/23 Unknown Rx Allergies Allergy/AdvReac Type Severity Reaction Status Date / Time codeine Allergy ALGY-Hives Verified 06/03/23 09:49 Current Medications Generic Name Dose Route Start Last Admin Trade Name Freq PRN Reason Stop Dose Admin Albuterol/Ipratropium 3 ml 07/15/23 02:30 07/15/23 09:00 Ipratropium-Albuterol 3 Ml Neb INHALATION 3 ml Q6H PENNY Administration Folic Acid 1 mg 07/15/23 09:00 07/15/23 10:01 Folic Acid 1 Mg Tablet PO 1 mg DAILY PENNY Administration norepinephrine 4 mg in 250 mls @ 0 mls/hr 07/14/23 21:45 07/15/23 07:20 Levophed IV 6 mcg/min .Q0M PENNY 22.5 mls/hr Administration Protocol Per Protocol Albumin Human 25 g in 100 mls @ 60 mls/hr 07/14/23 22:45 07/15/23 06:34 Albumin IV 60 mls/hr Q8H PENNY Administration Sodium Bicarbonate 150 meq/ 1,150 mls @ 150 mls/hr 07/15/23 07:00 07/15/23 07:15 Sodium Chloride IV 100 mls/hr .Q7H40M PENNY Administration Vancomycin HCl 750 mg/ Sodium 250 mls @ 250 mls/hr 07/15/23 08:00 07/15/23 08:50 Chloride IV 250 mls/hr Q48H PENNY Administration Meropenem 1,000 mg/ Sodium 50 mls @ 100 mls/hr 07/15/23 08:45 07/15/23 09:58 Chloride IV 100 mls/hr Q8H PENNY Administration Protocol Octreotide Acetate 500 mcg/ 101 mls @ 10.1 mls/hr 07/15/23 09:00 07/15/23 10:00 Sodium Chloride IV 50 mcg/hr .Q10H PENNY 10.1 mls/hr Administration 50 MCG/HR Lorazepam 2 mg 07/15/23 02:06 07/15/23 05:12 Lorazepam 2 Mg/Ml Inj 10 Ml Mdv IVP 2 mg PRN PRN Administration WITHDRAWAL Protocol Midodrine 10 mg 07/15/23 02:05 07/15/23 10:01 Midodrine 5 Mg Tablet PO 10 mg TID PENNY Administration Multivitamins Therapeutic 1 tab 07/15/23 09:00 07/15/23 10:02 Multivitamin Therapeutic Tablet PO 1 tab DAILY PENNY Administration Ondansetron HCl 4 mg 07/14/23 22:30 07/15/23 04:04 Ondansetron 2 Mg/Ml Sdv 2 Ml IVP 4 mg Q6H PRN Administration NAUSEA AND VOMITING Pantoprazole Sodium 40 mg 07/15/23 09:00 07/15/23 10:00 Pantoprazole 40 Mg Sdv IVP 40 mg Q12H PENNY Administration Rifaximin 550 mg 07/15/23 09:00 07/15/23 10:01 Rifaximin 550 Mg Tablet PO 550 mg BID PENNY Administration Protocol Thiamine Mononitrate 100 mg 07/15/23 09:00 07/15/23 10:02 Thiamine 100 Mg Tablet PO 100 mg DAILY PENNY Administration PFSH Acute 2 PFSH: Medical History Liver cirrhosis Alcoholism Hepatitis C COPD (chronic obstructive pulmonary disease) Surgical History History of hysterectomy Family History Mother Lung cancer Father Hyperthermia Social History Smoking and tobacco/nicotine status: current every day tobacco/nicotine user cigarettes Alcohol intake: current Alcohol intake frequency: few times a week Substance/Drug Use: current Substance/Drug use frequency: daily Female Reproductive History: Spontaneous abortions: No Vitals/I&O/Wt Last Vital Signs Temp 97.9 F 07/15/23 08:15 Pulse 105 H 07/15/23 09:15 Resp 29 H 07/15/23 09:15 BP 124/50 07/15/23 09:15 Pulse Ox 93 07/15/23 09:15 O2 Del Method Nasal Cannula 07/15/23 09:00 O2 Flow Rate 1.5 07/15/23 09:00 07/14/23 07/15/23 07/15/23 22:59 06:59 14:59 Intake Total 0 / 0 1008.350 / 1008.350 230.5 / 230.5 Output Total 850 / 850 400 / 400 Balance 0 / 0 158.350 / 158.350 -169.5 / -169.5 Weight last 48 hrs Weight 61.689 kg Weight 60.781 kg Weight 61.235 kg Physical Exam 2 Narrative: Patient is lethargic, arousable on 2 L nasal cannula Dry mucous membranes No pedal edema Urinary Catheter Management: Sales: Cath Placed During This Visit: yes Reason for Continuing Indwelling Catheter: Accurate Measurement of Urinary Output in Critically Ill Patients Urinary Catheter Date of Insertion: 07/15/23 Urinary Catheter Time of Insertion: 01:00 Data 07/15/23 04:17 07/15/23 09:10 Micro: Microbiology 07/14/23 22:51 Blood Culture - Preliminary Blood SPECIMEN COLLECTED 07/14/23 22:49 Blood Culture - Preliminary Blood SPECIMEN COLLECTED A&P Assessment and plan (1) Acute hyponatremia: (2) JEYSON (acute kidney injury): (3) Hyperkalemia: Plan 1. Acute kidney injury: Baseline creatinine was 0.92 months ago and now has an JEYSON with a creatinine of 3 range associated with hyperkalemia and metabolic acidosis. Etiology likely prerenal, in the setting of severe anemia and also cannot rule out HRS in the setting of recent large-volume paracentesis. -Agree with bicarbonate drip and increase the rate to 150 cc an hour, follow serial BMPs, making some urine, monitor -Agree with albumin plus midodrine plus octreotide -Avoid IV contrast studies -If no improvement in renal function and remains to have electrolyte abnormalities including hyperkalemia and severe metabolic acidosis-will require temporary dialysis, await serial BMPs. -Discussed with patient daughter at bedside 2. Hyperkalemia: Low potassium diet and medical management as above 3. Severe metabolic acidosis: On bicarbonate drip 4. Liver cirrhosis with portal hypertension and recurrent paracentesis 5. Severe anemia: Status post 2 units PRBC Patient evaluated using audiovisual cart. Time spent 40 minutes. Consult Attestations 2 Medical Necessity Statement: Per medicine team Coding Level of Care Code Acute Code for [facility] Diagnoses Acute hyponatremia E87.1 JEYSON (acute kidney injury) N17.9 Hyperkalemia E87.5
[2023-07-15] MEDS: sodium bicarbonate 150 MEQ in dextrose 5% 1,000 ML IV (11:05)
[2023-07-15 12:21] LABS: Glucose Point of Care 112 mg/dL (70-110)
--- NOTE | 2023-07-15 13:57 | XR_ITS ---
WS: [id number] PORTABLE CHEST HISTORY: Post PICC insertion COMPARISON: 07/14/2023 Left-sided PICC line has been placed with tip in the mid SVC. New opacification over the RIGHT hilum and RIGHT lower lobe. Mild pulmonary congestion. No pleural ef fusion or pneumothorax. Cardiac size: Normal. Mediastinum/Aorta: Mild atherosclerosis aorta. No osseous abnormality seen. IMPRESSION: Satisfactory placement left-sided PICC line.
[2023-07-15 14:15] LABS: Basophils % 0.4 %; Eosinophils % 0.1 %; Hematocrit 22.7 % (36-47); Lymphocytes % 9.1 %; Mean Corpuscular HGB Conc 34.4 g/dL (30-55); Mean Corpuscular Hemoglobin 29.4 pg (27-33); Mean Corpuscular Volume 85.7 fl (85-98); Mean Platelet Volume 8.9 fL (7.4-10.4); Monocytes # 2.2 10^3/uL (0.2-0.9); Monocytes % 21.1 %; Neutrophils # 7.16 10^3/uL (1.8-7.7); Neutrophils % 68.6 %; Nucleated Red Blood Cells % 0.3 %; Platelet Count 102 10^3/cmm (157-399); Red Blood Count 2.65 10^6/uL (3.85-5.65); White Blood Count 10.43 10^3/uL (3.29-11.43)
--- NOTE | 2023-07-15 14:30 | PC.NURSE ---
Triple lumen PICC placed to left basilic vein. Referred to vascular access nurse for PICC placement due to poor peripheral access. Pt daughter, Alexus, notified via phone of risks and benefits of procedure and informed consent obtained. Left arm assessed with left basilic vein measuring 4.5 mm, straight, and apparent best choice for placement. Using sterile techinque and MST, left basilic vein accessed x 1 stick. Trimmed cath 38 cm with 0 cm external length noted. CXR shows tip in mid-SVC, in satisfactory position for use per radiologist. Mid-arm circumference measured 10 cm from left AC 26 cm. Line secured with stat-lock. Insertion site covered with Biopatch and TSM. Report given to bedside nurseFlaco.
[2023-07-15 14:36] LABS: Anion Gap 21.4 (5-19); Blood Urea Nitrogen 28 mg/dL (8-23); Calcium 7.8 mg/dL (8.5-10.5); Carbon Dioxide 14 mmol/L (22-29); Chloride 95 mmol/L (98-107); Creatinine Clr Calc Pharmacy 18.6635; Glucose 142 mg/dL (65-115); Osmolality Calculated 266 mOsm/kg (285-295); Potassium 6.4 mmol/L (3.5-5.1); Sodium 124 mmol/L (136-145)
[2023-07-15 15:02] LABS: Body Fluid Polynuclear #Cells 0.012; Body Fluid WBC 161 /uL; Monocytes # Body Fluid 0.149; RBC, Body Fluid 0 10^3/uL
[2023-07-15 15:09] LABS: Total Protein Body Fluid 0.7 g/dL
[2023-07-15 15:10] LABS: Albumin Body Fluid 0.4 g/dL; Uric Acid Body Fluid 11 mg/dL
[2023-07-15 15:34] LABS: Apprearance, Body Fluid CLEAR; Color, Body Fluid YELLOW; PATH Referral YES
[2023-07-15 15:35] LABS: Cyto Order Verification No Order; Fluid Laterality ASCITES
[2023-07-15] MEDS: insulin regular-human 10 UNIT in SYRINGE 1 EACH 125 UNIT IVP (15:39)
[2023-07-15] MEDS: morphine 4 mg/mL SDV 1 mL 1 MG IVP ×2 (16:56→22:45)
--- NOTE | 2023-07-15 16:58 | PC.NURSE ---
Upon assessment, patient's lungs sound congested . No obvious signs of fluid build up such as crackles, but they have a wet quality to them. Patient has only had 75mL of urine output today. Nurse alerted Dr jarrett. received orders to reduce sodium bicarb from 150mL/hr to 100ml/hr.
[2023-07-15] MEDS: sodium bicarbonate 150 MEQ in dextrose 5% 1,000 ML 100 MEQ IV (19:07)
--- NOTE | 2023-07-15 19:50 | PC.NURSE ---
Shift SUmmary: Uneventful shift. Patient rested in bed throughout the day. Continues to be very lethargic. Unable to give most PO meds as patient has difficulty staying awake to safely swallow them, even when mixing in drink or pudding. Occasional complaints of generalized pain. Paracentesis performed by Dr navarrete, 850mL drained form left abdomen. Total urine output has been 75mL. Nurse has relayed concerns about respiratory and fluid status (see previous note) to business analyst manager nurse.
[2023-07-15 19:54] LABS: Blood Urea Nitrogen 28 mg/dL (8-23); Calcium 7.6 mg/dL (8.5-10.5); Carbon Dioxide 15 mmol/L (22-29); Chloride 95 mmol/L (98-107); Creatinine Clr Calc Pharmacy 20.1566; Glomerular Filtration Rate 19.6 mL/min (90-130); Glucose 118 mg/dL (65-115); Osmolality Calculated 269 mOsm/kg (285-295); Sodium 126 mmol/L (136-145)
[2023-07-15 20:01] LABS: Anion Gap 22.3 (5-19); Potassium 6.3 mmol/L (3.5-5.1)
--- NOTE | 2023-07-15 20:55 | PC.NURSE ---
Dr. Gramajo called to review patients BMP results. Order given for kayexalate for K+ of 6.3. Notified that temp is 100.6. States that is to be expected, no orders given for elevated temp.
--- NOTE | 2023-07-15 21:41 | PC.NURSE ---
Dr. Banks called regarding CMP results. Notified that we had given her a dose of kayexalate for the K+ of 6.3. Order given for 60mg of Lasix and PO citric acid and repeat the CMP at 0000.
[2023-07-15] MEDS: FUROsemide 10 mg/mL SDV 10mL 60 MG IVP (21:57)
[2023-07-15] MEDS: citric acid-sodium citrate 30 mL UDC 60 ML PO (21:58)
[2023-07-15 23:11] LABS: Adenovirus Not Detected (NOT DETECT); Chlamydia Pneumoniae Not Detected (NOT DETECT); Coronavirus 229E,HKU1,NL63,OC4 Not Detected (NOT DETECT); Human Metapneumovirus Not Detected (NOT DETECT); Human Rhinovirus/Enterovirus Not Detected (NOT DETECT); Influenza A Not Detected (NOT DETECT); Influenza A H1 Not Detected (NOT DETECT); Influenza A H1-2009 Not Detected (NOT DETECT); Influenza A H3 Not Detected (NOT DETECT); Influenza B Not Detected (NOT DETECT); Mycoplasma Pneumoniae Not Detected (NOT DETECT); Parainfluenza Virus Type 1 Not Detected (NOT DETECT); Parainfluenza Virus Type 2 Not Detected (NOT DETECT); Parainfluenza Virus Type 3 Not Detected (NOT DETECT); Parainfluenza Virus Type 4 Not Detected (NOT DETECT); Respiratory Syncytial Virus A Not Detected (NOT DETECT); Respiratory Syncytial Virus B Not Detected (NOT DETECT); SARS-COV-2 Not Detected (NOT DETECT)
[2023-07-16] VITALS (38 sets, daily range): BP systolic 107–166; BP diastolic 55–91; PULSE 96–114; RESP 10–26; TEMP 36.7–38.2; O2SAT 91–97
[2023-07-16] MEDS: meropenem 1,000 MG in sodium chloride 0.9% (plus) 50 ML 100 MG IV ×4 (00:05→23:17)
[2023-07-16 00:24] LABS: Alanine Aminotransferase 77 U/L (0-33); Albumin Level 3.9 g/dL (3.5-5.2); Alkaline Phosphatase 83 U/L (35-105); Aspartate Amino Transferase 135 U/L (0-32); Blood Urea Nitrogen 30 mg/dL (8-23); Calcium 7.7 mg/dL (8.5-10.5); Carbon Dioxide 19 mmol/L (22-29); Chloride 89 mmol/L (98-107); Creatinine Clr Calc Pharmacy 18.6635; Globulin 2.2 g/dL (1.3-4.6); Glucose 220 mg/dL (65-115); Osmolality Calculated 271 mOsm/kg (285-295); Sodium 124 mmol/L (136-145); Total Protein 6.1 g/dL (6.6-8.7)
[2023-07-16 00:30] LABS: Anion Gap 21.7 (5-19); Potassium 5.7 mmol/L (3.5-5.1)
--- NOTE | 2023-07-16 00:48 | PC.NURSE ---
Notified Dr. Banks of K+ of 5.7, no new orders given.
--- NOTE | 2023-07-16 01:27 | PC.NURSE ---
Patient reports pain to abdomen and back with only about 30 minutes of relief after morphine given. Order given to given nothing more for pain because she was so lethargic before.
[2023-07-16] MEDS: ipratropium-albuterol 3 mL Neb INHALATION ×4 (02:26→20:24)
[2023-07-16] MEDS: octreotide 500 MCG in sodium chloride 0.9% (100 ml) 100 ML 10.0999999999999996 MCG IV ×2 (04:49→15:13)
[2023-07-16 05:19] LABS: Basophils # 0.1 10^3/uL (0.0-0.1); Eosinophils # 0.1 10^3/uL (0.0-0.8); Eosinophils % 1.9 %; Lymphocytes # 1.1 10^3/uL (0.8-4.8); Lymphocytes % 16.3 %; Mean Corpuscular HGB Conc 34.3 g/dL (30-55); Mean Corpuscular Hemoglobin 29.9 pg (27-33); Mean Corpuscular Volume 87.2 fl (85-98); Mean Platelet Volume 9.4 fL (7.4-10.4); Monocytes # 1.3 10^3/uL (0.2-0.9); Monocytes % 18.2 %; Neutrophils # 4.33 10^3/uL (1.8-7.7); Neutrophils % 61.9 %; Nucleated Red Blood Cells % 0.3 %; Platelet Count 69 10^3/cmm (157-399); Red Blood Count 2.34 10^6/uL (3.85-5.65); Red Cell Distribution Width 24.4 % (12.1-15.1); White Blood Count 6.99 10^3/uL (3.29-11.43)
[2023-07-16 05:37] LABS: Hematocrit 20.4 % (36-47)
[2023-07-16 05:48] LABS: Alanine Aminotransferase 68 U/L (0-33); Albumin Level 3.6 g/dL (3.5-5.2); Alkaline Phosphatase 79 U/L (35-105); Anion Gap 18.2 (5-19); Aspartate Amino Transferase 114 U/L (0-32); Blood Urea Nitrogen 30 mg/dL (8-23); Calcium 7.4 mg/dL (8.5-10.5); Carbon Dioxide 23 mmol/L (22-29); Chloride 91 mmol/L (98-107); Creatinine Clr Calc Pharmacy 21.6889; Glomerular Filtration Rate 20.6 mL/min (90-130); Glucose 219 mg/dL (65-115); Osmolality Calculated 277 mOsm/kg (285-295); Potassium 5.2 mmol/L (3.5-5.1); Sodium 127 mmol/L (136-145); Total Bilirubin 3.7 mg/dL (0.15-1.2); Total Protein 5.6 g/dL (6.6-8.7)
[2023-07-16] MEDS: albumin 25 G/100 ML BAG 60 G IV ×3 (06:30→23:17)
[2023-07-16] MEDS: sodium bicarbonate 150 MEQ in dextrose 5% 1,000 ML 100 MEQ IV (08:13)
[2023-07-16] MEDS: morphine 4 mg/mL SDV 1 mL 1 MG IVP ×2 (08:14→11:41)
[2023-07-16] MEDS: pantoprazole 40 mg SDV IVP ×2 (08:17→20:50)
[2023-07-16] MEDS: thiamine 100 mg Tablet PO (08:25)
[2023-07-16] MEDS: midodrine 5 mg TABLET 10 MG PO ×3 (08:25→20:50)
[2023-07-16] MEDS: multivitamin therapeutic Tablet 1 TAB PO (08:25)
[2023-07-16] MEDS: pregabalin 25 mg Capsule PO (08:25)
[2023-07-16] MEDS: folic acid 1 mg Tablet PO (08:25)
--- NOTE | 2023-07-16 09:06 | USCV_ITS ---
Susie Bassett Age: 62 Gender: F : 1960 Exam Date: 07/16/2023 09:08 Ordering Phys: Finesse Gramajo MD Technologist: Exam Location: [facility] [place] Indication: chest pain BP: 131 / 66 HR: 0 Rhythm: Sinus Technical Quality: Adequate MEASUREMENTS (Male / Female) Normal Values 2D ECHO LV Diastolic Diameter PLAX 4.0 cm 4.2 - 5.9 / 3.9 - 5.3 cm IVS Diastolic Thickness 1.1 cm 0.6 - 1.0 / 0.6 - 0.9 cm IVS Systolic Thickness 1.5 cm LVPW Diastolic Thickness 1.0 cm 0.6 - 1.0 / 0.6 - 0.9 cm LVPW Systolic Thickness 1.7 cm LVOT Diameter 1.9 cm LV Ejection Fraction 2D Teich 58.6 % LV Ejection Fraction MOD 2C 71.4 % LV Ejection Fraction 2C AL 72.6 % LA Diameter 3.2 cm Aorta at Sinotubular Diameter 2.5 cm IVC Diameter 1.6 cm M-MODE LA Ao Ratio MM 1.1 MV E Point Septal Separation 1.7 cm AV Cusp Separation MM 2.3 cm DOPPLER AV Peak Velocity 136.0 cm/s LVOT Peak Velocity 131.0 cm/s AV Area Cont Eq vti 2.3 cm squared AV Area Cont Eq pk 2.7 cm squared MV Peak Velocity 142.0 cm/s MV Area PHT 4.7 cm squared Mitral E to A Ratio 1.2 TV Peak Velocity 276.0 cm/s TR Peak Velocity 307.0 cm/s TR Peak Gradient 37.7 mmHg Right Atrial Pressure 3.0 mmHg Pulmonary Artery Systolic Pressu 40.7 mmHg PV Peak Velocity 130.0 cm/s FINDINGS Left Ventricle Left ventricle is normal in size. LV systolic function is normal with EF of 60-65%. No regional wall motion abnormalities are seen. Right Ventricle Normal in size and function Right Atrium Normal in size Left Atrium Normal in size Mitral Valve Structurally normal mitral valve. Mild mitral regurgitation. Aortic Valve Structurally normal aortic valve. No significant stenosis or regurgitation. Tricuspid Valve Mild tricuspid regurgitation. RVSP is 35 to 40 mmHg. This is consistent with mild pulmonary hypertension Pulmonic Valve Not well visualized Pericardium Normal Aorta Normal in size IVC Appears to be normal CONCLUSIONS LV systolic function is normal with EF of 60 to 65%. Mild mitral regurgitation. Mild mitral regurgitation. Mild tricuspid regurgitation. Mild pulmonary hypertension No comparison studies are available. Lukas Rodriguez MD (Electronically Signed) Final Date: 16 July 2023 12:35 S
--- NOTE | 2023-07-16 09:35 | P.PN_ITS ---
Subjective 2 Subjective: More alert this morning. Complaining of some pain in her sides. Medications: Reviewed: Yes Vitals/I&O/Wt Last Vital Signs Temp 100.1 F H 07/16/23 04:00 Pulse 107 H 07/16/23 09:09 Resp 23 H 07/16/23 09:00 BP 113/64 07/16/23 06:00 Pulse Ox 95 07/16/23 09:00 O2 Del Method Nasal Cannula 07/16/23 09:00 O2 Flow Rate 4 07/16/23 09:00 07/15/23 07/16/23 07/16/23 22:59 06:59 14:59 Intake Total 1717.078 / 3363.094 1447.97 / 4811.064 Output Total 450 / 525 Balance 1717.078 / 3288.094 997.97 / 4286.064 Weight last 48 hrs Weight 66.088 kg Weight 61.689 kg Weight 60.781 kg Weight 61.235 kg Physical Exam 2 Narrative: General exam is more awake, slightly tremulous, reporting she wants a little bit of food. She had a bowel movement overnight. Neck is supple Cardiovascular tachycardic, regular, no murmur Lungs clear Abdomen distended with ascites. A few bowel sounds are heard exam Sales noted Extremities trace edema. No cyanosis or clubbing. Urinary Catheter Management: Sales: Cath Placed During This Visit: yes Reason for Continuing Indwelling Catheter: Accurate Measurement of Urinary Output in Critically Ill Patients Urinary Catheter Date of Insertion: 07/15/23 Urinary Catheter Time of Insertion: 01:00 Data 07/16/23 05:02 07/16/23 05:02 Micro: Microbiology 07/14/23 22:49 Blood Culture - Preliminary Blood NEGATIVE TO DATE 07/14/23 22:51 Blood Culture - Preliminary Blood NEGATIVE TO DATE A&P Assessment and plan (1) Acute hyperkalemia: Patient presents with significant hyperkalemia. This has improved with treatment with Kayexalate and other medications. Slight elevation today. Hold Aldactone also holding Bactrim which she was on as prophylaxis for SBP Appreciate nephrology help (2) Acute hyponatremia: Patient with significant hyponatremia This has continued slow improvement (3) Acute hypotension: Has improved Now off norepinephrine Continue midodrine (4) Acute renal failure: Significant acute kidney injury Associated with liver disease, may have hepatorenal syndrome. Continue midodrine, albumin, octreotide Sales to monitor output Qualifiers: Acute renal failure type: unspecified Qualified Code(s): N17.9 - Acute kidney failure, unspecified (5) Acute anemia: Patient presented with acute anemia. Await CT abdomen pelvis secondary symptoms and some bruising on her left side. Has not had previous EGD to look for varices, but has had blood per rectum secondary to rectal prolapse. Hemoglobin has drifted down to around 7 Repeat hemoglobin planned at 10 AM (6) Hyperammonemia: Continue rifaximin. Lactulose has not been given secondary to history of rectal prolapse (7) Abdominal ascites: Patient with significant ascites. Paracentesis per radiology was performed. Awaiting culture. Did not have significant amount of PMNs. Qualifiers: Ascites type: due to alcoholic cirrhosis Qualified Code(s): K70.31 - Alcoholic cirrhosis of liver with ascites (8) Chronic alcohol use: Patient with chronic alcohol use. CIWA protocol initiated. (9) COPD (chronic obstructive pulmonary disease): DuoNeb as needed Qualifiers: COPD type: chronic bronchitis (10) Liver cirrhosis: Significant cirrhosis, with creasing bilirubin. Continue supportive care. Last drink days ago. Liver function test slightly improved Secondary to some abdominal pain check lipase Qualifiers: Ascites presence: with ascites Hepatic cirrhosis type: alcoholic cirrhosis Qualified Code(s): K70.31 - Alcoholic cirrhosis of liver with ascites Plan Right-sided pneumonia. Fever. Await blood cultures. Check sputum culture. Continue IV antibiotics of meropenem, vancomycin Elevated troponin. Check echo Other medical problems as outlined in past medical history Full code SCDs for DVT prophylaxis, anticoagulation contraindicated secondary to severe anemia Protonix for GI prophylaxis Still severely ill. Continue on bicarb currently. Continue IV antibiotics. Still concern that patient may deteriorate. Attestations 2 Medical Necessity Statement*: Needs continued hospitalization for IV antibiotics secondary to pneumonia, close follow-up of acute kidney injury. Critical Care Time: The high probability of a clinically significant, sudden or life threatening deterioration of the patient's [cardiac, renal, hepatic] system(s) required my full and direct attention, intervention and personal management. The critical care time is as shown. This time is in addition to time spent performing any reported procedures but includes the following: [x] Data and vital sign review and interpretation [x] Patient assessment, examination and intervention [x] Documentation [x] Medication orders and management Critical Care Time (min): 37 Coding Level of Care Code Critical Care >/= 30 minutes Critical care time (in minutes): 37 The high probability of a clinically significant, sudden or life threatening deterioration, as referenced in this documentation, required my full and direct attention, intervention and personal management. The critical care time shown is in addition to time spent performing any reported separately billable procedures and includes the following: [x] Data and vital sign review and interpretation [x ] Patient assessment, examination and intervention [x] Medication orders and management [x] Patient/Family updates as able [x] Care Coordination and Documentation. Diagnoses Acute hyperkalemia E87.5 Acute hyponatremia E87.1 Acute hypotension I95.9 Acute renal failure N17.9 Acute renal failure type: unspecified Acute anemia D64.9 Hyperammonemia E72.20 Ascites due to alcoholic cirrhosis K70.31 Ascites type: due to alcoholic cirrhosis Chronic alcohol use Z72.89 COPD (chronic obstructive pulmonary disease) J44.9 COPD type: chronic bronchitis Alcoholic cirrhosis of liver with ascites K70.31 Ascites presence: with ascites Hepatic cirrhosis type: alcoholic cirrhosis
[2023-07-16 09:59] LABS: Lipase 23 U/L (13-60)
[2023-07-16] MEDS: oxyCODONE 5 mg IR Tab/Cap PO (10:00)
[2023-07-16 10:08] LABS: Glucose Point of Care 221 mg/dL (70-110)
--- NOTE | 2023-07-16 11:05 | P.PN_ITS ---
Subjective 2 Subjective: pt feels better . mental status improved Medications: Reviewed: Yes Vitals/I&O/Wt Last Vital Signs Temp 100.1 F H 07/16/23 09:00 Pulse 107 H 07/16/23 09:09 Resp 20 H 07/16/23 10:00 BP 131/67 07/16/23 09:00 Pulse Ox 93 07/16/23 10:00 O2 Del Method Nasal Cannula 07/16/23 09:00 O2 Flow Rate 4 07/16/23 09:00 07/15/23 07/16/23 07/16/23 22:59 06:59 14:59 Intake Total 1717.078 / 3363.094 1447.97 / 4811.064 150 / 150 Output Total 450 / 525 75 / 75 Balance 1717.078 / 3288.094 997.97 / 4286.064 75 / 75 Weight last 48 hrs Weight 66.088 kg Weight 61.689 kg Weight 60.781 kg Weight 61.235 kg Physical Exam 2 Narrative: Patient is awake , alert on 2 L nasal cannula Dry mucous membranes No pedal edema Urinary Catheter Management: Sales: Cath Placed During This Visit: yes Reason for Continuing Indwelling Catheter: Accurate Measurement of Urinary Output in Critically Ill Patients Urinary Catheter Date of Insertion: 07/15/23 Urinary Catheter Time of Insertion: 01:00 Data 07/16/23 05:02 07/16/23 05:02 Micro: Microbiology 07/15/23 13:45 Gram Stain - Final Peritoneal Fluid Body Fluid Culture - Preliminary 07/14/23 22:49 Blood Culture - Preliminary Blood NEGATIVE TO DATE 07/14/23 22:51 Blood Culture - Preliminary Blood NEGATIVE TO DATE A&P Assessment and plan (1) Acute hyponatremia: (2) JEYSON (acute kidney injury): (3) Hyperkalemia: Plan 1. Acute kidney injury: Baseline creatinine was 0.92 months ago and now has an JEYSON with a creatinine of 3 range associated with hyperkalemia and metabolic acidosis. Etiology likely prerenal, in the setting of severe anemia and also cannot rule out HRS in the setting of recent large-volume paracentesis. - on bicarbonate drip ---> switched to NS @ 75 cc/hr -Agree with albumin plus midodrine plus octreotide -Avoid IV contrast studies - Cr and electrolytes improved -Discussed with patient daughter at bedside 2. Hyperkalemia: Low potassium diet and medical management as above, improved 3. Severe metabolic acidosis: s/p bicarbonate drip 4. Liver cirrhosis with portal hypertension and recurrent paracentesis 5. Severe anemia: Status post 2 units PRBC, hb 7.0 , consider another transfusion Patient evaluated using audiovisual cart. Time spent 20 minutes. Attestations 2 [facility] Necessity Statement*: [facility] Coding Level of Care Code Acute Code for g Fwd Diagnoses Acute hyponatremia E87.1 JEYSON (acute kidney injury) N17.9 Hyperkalemia E87.5
[2023-07-16 11:23] LABS: Hematocrit 19.3 % (36-47)
[2023-07-16] MEDS: sodium chloride 0.9% 1,000 ML 75 ML IV (11:25)
[2023-07-16] MEDS: sodium chloride 0.9% 100 mL Bag 50 ML IV (15:13)
[2023-07-16] MEDS: FUROsemide 10 mg/mL SDV 10mL 60 MG IVP (16:07)
[2023-07-16 18:14] LABS: Basophils # 0.1 10^3/uL (0.0-0.1); Basophils % 1.1 %; Eosinophils % 0.4 %; Hematocrit 24.4 % (36-47); Lymphocytes # 1.2 10^3/uL (0.8-4.8); Lymphocytes % 15.9 %; Mean Corpuscular HGB Conc 34.4 g/dL (30-55); Mean Corpuscular Hemoglobin 30.2 pg (27-33); Mean Corpuscular Volume 87.8 fl (85-98); Mean Platelet Volume 9.5 fL (7.4-10.4); Monocytes # 1.2 10^3/uL (0.2-0.9); Monocytes % 16.7 %; Neutrophils # 4.84 10^3/uL (1.8-7.7); Neutrophils % 65.5 %; Nucleated Red Blood Cells % 0 %; Platelet Count 58 10^3/cmm (157-399); Red Blood Count 2.78 10^6/uL (3.85-5.65); Red Cell Distribution Width 23.7 % (12.1-15.1); White Blood Count 7.38 10^3/uL (3.29-11.43)
[2023-07-16 18:37] LABS: Alanine Aminotransferase 70 U/L (0-33); Albumin Level 4.1 g/dL (3.5-5.2); Alkaline Phosphatase 84 U/L (35-105); Aspartate Amino Transferase 118 U/L (0-32); Blood Urea Nitrogen 29 mg/dL (8-23); Calcium 8.1 mg/dL (8.5-10.5); Carbon Dioxide 26 mmol/L (22-29); Chloride 90 mmol/L (98-107); Creatinine Clr Calc Pharmacy 30.6196; Globulin 1.9 g/dL (1.3-4.6); Glomerular Filtration Rate 30.7 mL/min (90-130); Glucose 161 mg/dL (65-115); Osmolality Calculated 273 mOsm/kg (285-295); Sodium 127 mmol/L (136-145); Total Bilirubin 5.1 mg/dL (0.15-1.2)
[2023-07-16 18:42] LABS: Anion Gap 15.6 (5-19); Potassium 4.6 mmol/L (3.5-5.1)
--- NOTE | 2023-07-16 21:42 | PC.NURSE ---
Assisted patient on to bedpan x2 assist. No prolapse observed at that time. Patient now has rectal prolapse. Informed Dr Hoffmann and received instruction to keep moist as she has a history of rectal prolapse. Will consult surgery in am. Will continue to monitor.
[2023-07-17] VITALS (209 sets, daily range): BP systolic 108–151; BP diastolic 55–79; PULSE 93–118; RESP 9–34; TEMP 37.1–38.4; O2SAT 87–95; BMI 31.4
[2023-07-17] MEDS: ipratropium-albuterol 3 mL Neb INHALATION ×2 (01:14→09:45)
[2023-07-17] MEDS: octreotide 500 MCG in sodium chloride 0.9% (100 ml) 100 ML 10.0999999999999996 MCG IV ×3 (01:48→21:03)
[2023-07-17] MEDS: sodium chloride 0.9% 1,000 ML 75 ML IV (01:49)
[2023-07-17] MEDS: sodium chloride 0.9% (100 ml) 100 ML (01:50)
[2023-07-17 05:16] LABS: Basophils # 0.1 10^3/uL (0.0-0.1); Basophils % 1.2 %; Eosinophils # 0.1 10^3/uL (0.0-0.8); Eosinophils % 0.5 %; Hematocrit 25.3 % (36-47); Lymphocytes # 1.5 10^3/uL (0.8-4.8); Mean Corpuscular HGB Conc 33.6 g/dL (30-55); Mean Corpuscular Volume 89.4 fl (85-98); Mean Platelet Volume 9.2 fL (7.4-10.4); Monocytes # 1.7 10^3/uL (0.2-0.9); Monocytes % 18.8 %; Neutrophils # 5.84 10^3/uL (1.8-7.7); Neutrophils % 63.2 %; Nucleated Red Blood Cells % 0 %; Platelet Count 60 10^3/cmm (157-399); Red Blood Count 2.83 10^6/uL (3.85-5.65); White Blood Count 9.25 10^3/uL (3.29-11.43)
[2023-07-17 05:22] LABS: INR 1.72 (0.8-1.2)
[2023-07-17] MEDS: albumin 25 G/100 ML BAG 60 G IV ×3 (05:22→22:10)
[2023-07-17 06:00] LABS: Alanine Aminotransferase 57 U/L (0-33); Albumin Level 4.1 g/dL (3.5-5.2); Alkaline Phosphatase 82 U/L (35-105); Blood Urea Nitrogen 30 mg/dL (8-23); Calcium 7.7 mg/dL (8.5-10.5); Carbon Dioxide 25 mmol/L (22-29); Chloride 92 mmol/L (98-107); Globulin 1.7 g/dL (1.3-4.6); Glomerular Filtration Rate 41.8 mL/min (90-130); Glucose 133 mg/dL (65-115); Osmolality Calculated 278 mOsm/kg (285-295); Sodium 130 mmol/L (136-145); Total Bilirubin 5.5 mg/dL (0.15-1.2); Total Protein 5.8 g/dL (6.6-8.7)
[2023-07-17 06:05] LABS: Anion Gap 17.5 (5-19); Aspartate Amino Transferase 111 U/L (0-32); Potassium 4.5 mmol/L (3.5-5.1)
[2023-07-17] MEDS: meropenem 1,000 MG in sodium chloride 0.9% (plus) 50 ML 100 MG IV ×2 (08:17→17:52)
[2023-07-17] MEDS: vancomycin 750 MG in sodium chloride 0.9% 250 ML 250 MG IV (08:18)
[2023-07-17] MEDS: pantoprazole 40 mg SDV IVP ×2 (08:18→21:03)
[2023-07-17] MEDS: morphine 4 mg/mL SDV 1 mL 1 MG IVP ×2 (08:18→21:25)
[2023-07-17] MEDS: folic acid 1 mg Tablet PO (08:19)
[2023-07-17] MEDS: thiamine 100 mg Tablet PO (08:20)
[2023-07-17] MEDS: midodrine 5 mg TABLET 10 MG PO ×3 (08:20→21:02)
[2023-07-17] MEDS: multivitamin therapeutic Tablet 1 TAB PO (08:20)
[2023-07-17] MEDS: pregabalin 25 mg Capsule PO (08:20)
[2023-07-17 08:30] LABS: Magnesium 1.8 mg/dL (1.7-2.3)
--- NOTE | 2023-07-17 09:53 | PM.PN ---
Subjective Subjective: Susie reports her side is hurting and her back is hurting. She denies any coughing while eating. Her rectum prolapse, and surgery has been consulted to reduce it. She wonders if she can go home. I discussed with her it was not appropriate to go home today, and that if she drinks again she will likely . Daughter was present for the conversation as well. Medications: Reviewed: Yes Vitals/I&O/Wt Last Vital Signs Temp 101.2 F H 07/17/23 01:52 Pulse 105 H 07/17/23 09:48 Resp 20 H 07/17/23 09:40 BP 136/68 07/17/23 04:20 Pulse Ox 94 07/17/23 09:40 O2 Del Method Nasal Cannula 07/17/23 09:40 O2 Flow Rate 3 07/17/23 09:40 07/16/23 07/17/23 07/17/23 22:59 06:59 14:59 Intake Total 520 / 2180.092 3437 / 2580.333 1132.5 / 1132.5 Output Total 650 / 875 Balance 520 / 864.333 841 / 4019.309 1534.5 / 1132.5 Weight last 48 hrs Weight 75.41 kg Weight 66.088 kg Physical Exam Narrative: General exam white female alert and conversive Neck is supple Cardiovascular tachycardic, regular, no murmur Lungs coarse breath sounds bilaterally right greater than left Abdomen distended with ascites. A few bowel sounds are heard exam Sales noted. Rectum with prophylaxis, reduced by surgery while I was in the room Extremities trace edema. No cyanosis or clubbing. Urinary Catheter Management: Sales: Cath Placed During This Visit: yes Reason for Continuing Indwelling Catheter: Accurate Measurement of Urinary Output in Critically Ill Patients Urinary Catheter Date of Insertion: 07/15/23 Urinary Catheter Time of Insertion: 01:00 Data 07/17/23 04:30 07/17/23 04:30 Micro: Microbiology 07/15/23 13:45 Gram Stain - Final Peritoneal Fluid Anaerobic Culture - Preliminary Body Fluid Culture - Preliminary A&P Assessment and plan (1) Acute hyperkalemia: Patient presents with significant hyperkalemia. This has improved with treatment with Kayexalate and other medications. Potassium is normal today Hold Aldactone also holding Bactrim which she was on as prophylaxis for SBP Appreciate nephrology consultation (2) Acute hyponatremia: Patient with significant hyponatremia Continues to slowly improve (3) Acute hypotension: Has improved Now off norepinephrine Continue midodrine (4) Acute renal failure: Significant acute kidney injury Associated with liver disease, may have hepatorenal syndrome. Continue midodrine, albumin, octreotide Sales to monitor output If renal function continues to improve consider discontinuation of octreotide tomorrow Qualifiers: Acute renal failure type: unspecified Qualified Code(s): N17.9 - Acute kidney failure, unspecified (5) Acute anemia: Patient presented with acute anemia. Await CT abdomen pelvis secondary symptoms and some bruising on her left side. Has not had previous EGD to look for varices, but has had blood per rectum secondary to rectal prolapse. She has received a total of 3 units packed red blood cells. Continue to monitor hemoglobin closely. No evidence of active bleeding (6) Hyperammonemia: Continue rifaximin. Lactulose has not been given secondary to history of rectal prolapse (7) Abdominal ascites: Patient with significant ascites. Paracentesis per radiology was performed. Awaiting culture. Did not have significant amount of PMNs. Culture pending but may be negative as prelim shows no concerns at this time. 900 cc removed at that time. Qualifiers: Ascites type: due to alcoholic cirrhosis Qualified Code(s): K70.31 - Alcoholic cirrhosis of liver with ascites (8) Chronic alcohol use: Patient with chronic alcohol use. [facility] protocol initiated. Withdrawal symptomatology seems to be waning (9) COPD (chronic obstructive pulmonary disease): DuoNeb as needed Qualifiers: COPD type: chronic bronchitis (10) Liver cirrhosis: Significant cirrhosis, with creasing bilirubin. Continue supportive care. Last drink days ago. Lipase not elevated Bilirubin slightly higher than yesterday LFTs tomorrow CBC, CMP, INR in the morning Qualifiers: Ascites presence: with ascites Hepatic cirrhosis type: alcoholic cirrhosis Qualified Code(s): K70.31 - Alcoholic cirrhosis of liver with ascites Plan Right-sided pneumonia. Continued fever. Await sputum culture, MRSA PCR. Continue IV antibiotics of meropenem, vancomycin. Mobilize. If fever persists, consider further workup. Only other symptomatology is some back pain which she reports she chronically has. I do not feel comfortable at this time getting an MRI of her spine. However, as she continues to improve this could be considered if symptomatology dictates. Will repeat blood culture secondary to persistent fever Rectal prolapse, expect this to continue intermittently Elevated troponin. Echo demonstrates preserved EF, no obvious lesions Fluid overload, from resuscitation. 60 mg of Lasix IV now. Discontinue continuous IV fluids. Other medical problems as outlined in past medical history Full code SCDs for DVT prophylaxis, anticoagulation contraindicated secondary to severe anemia Protonix for GI prophylaxis Still severely ill. Continue ICU care. May be improved enough by tomorrow for transfer could occur Attestations Medical Necessity Statement*: Needs continued hospital stay secondary to IV antibiotics secondary to persistent fever, pneumonia in this patient with a significant risk of worsening and need for continued octreotide, albumin, etc. Diagnoses Acute hyperkalemia E87.5 Acute hyponatremia E87.1 Acute hypotension I95.9 Acute renal failure N17.9 Acute renal failure type: unspecified Acute anemia D64.9 Hyperammonemia E72.20 Ascites due to alcoholic cirrhosis K70.31 Ascites type: due to alcoholic cirrhosis Chronic alcohol use Z72.89 COPD (chronic obstructive pulmonary disease) J44.9 COPD type: chronic bronchitis Alcoholic cirrhosis of liver with ascites K70.31 Ascites presence: with ascites Hepatic cirrhosis type: alcoholic cirrhosis Time Spent (min) 31
--- NOTE | 2023-07-17 10:04 | XR_ITS ---
WS: [id number] Portable AP upright chest, 07/17/2023 Clinical Data: follow up pneumonia Comparison: Portable chest, 07/15/2023 Findings: The bilateral pulmonary opacities remain the same. The heart is not enlarged. No pneumothor ax is present. The aortic arch shows calcification. There are no nodules or masses. There is a small right effusion. Monitor leads are on the chest wall. The left PICC line remains in position. The smal l bowel is moderately dilated. Impression: 1. No change in bilateral pulmonary opacities which may represent pneumonia. 2. Atherosclerosis. 3. Probable generalized ileus.
[2023-07-17] MEDS: FUROsemide 10 mg/mL SDV 10mL 60 MG IVP (11:33)
[2023-07-17] MEDS: oxyCODONE 5 mg IR Tab/Cap PO (14:31)
--- NOTE | 2023-07-17 15:01 | P.CONIM_ITS ---
Providers/Reason For Consult 2 Consulting Physician/Specialty*: Dr. Hoang Mcdonald DO/General surgery Reason for Consult*: Rectal prolapse Attending Physician: Alvarado Lau MD Primary Care Provider: Trenton Alas DO History of Present Illness History of Present Illness Susie Bassett is a 62 year old female who presented to the hospital with hypotension and weakness and has a history of alcoholic cirrhosis and ascites requiring frequent paracentesis, is currently in the ICU and has had a recurrent rectal prolapse. Reportedly her rectum has prolapsed multiple times in the past year requiring reduction. She reports that she is adverse to being put to sleep for any procedures. She denies any abdominal or rectal pain. She has had some bright red blood per rectum which she attributes to bleeding hemorrhoids. Denies any nausea, emesis, diarrhea, constipation and/or melena. Review of Systems 2 General: Reports: 10 or more systems reviewed and unremarkable except in HPI and below Medications/Allergies Home Medications Medication Instructions Recorded Confirmed Last Taken Type acetaminophen 500 mg tablet 1,000 mg PO Q6H PRN Pain 05/18/20 07/15/23 05/22/23 History (Tylenol Extra Strength) thiamine mononitrate (vit B1) 100 100 mg PO DAILY #30 tabs 10/31/21 07/15/23 Unknown Rx mg tablet (Vitamin B-1 (mononitrate)) albuterol sulfate 90 mcg/actuation 2 puff inhalation Q6H PRN 05/20/23 07/15/23 Unknown History aerosol inhaler (Ventolin HFA) Shortness Of Breath Or Wheezing fluticasone 250 mcg-salmeterol 50 1 inh inhalation BID 05/20/23 07/15/23 05/20/23 History mcg/dose blistr powdr for inhalation (Advair Diskus) furosemide 20 mg tablet 20 mg PO DAILY 05/20/23 07/15/23 05/22/23 History magnesium 250 mg tablet 250 mg PO DAILY 05/20/23 07/15/23 05/22/23 History multivitamin 1 tab PO DAILY 05/20/23 07/15/23 05/22/23 History ondansetron 4 mg disintegrating 4 mg PO Q8H PRN Nausea And Vomiting 05/20/23 07/15/23 05/22/23 History tablet pantoprazole 40 mg tablet,delayed 40 mg PO BID 05/20/23 07/15/23 05/22/23 History release potassium chloride 20 mEq 20 meq PO DAILY 05/20/23 07/15/23 05/22/23 History tablet,extended release(part/cryst) rifaximin 550 mg tablet 550 mg PO BID #60 tabs 05/20/23 07/15/23 05/22/23 Rx tiotropium bromide 18 mcg capsule 1 cap inhalation DAILY 05/20/23 07/15/23 05/22/23 History with inhalation device (Spiriva with HandiHaler) sulfamethoxazole 800 1 tab PO DAILY #30 tabs 06/03/23 07/15/23 Unknown Rx mg-trimethoprim 160 mg tablet (Bactrim DS) spironolactone 100 mg tablet 100 mg PO DAILY #90 tabs 06/23/23 07/15/23 Unknown Rx pregabalin 25 mg capsule (Lyrica) 25 mg PO DAILY #30 caps 06/27/23 07/15/23 Unknown Rx Allergies Allergy/AdvReac Type Severity Reaction Status Date / Time codeine Allergy ALGY-Hives Verified 06/03/23 09:49 Current Medications Generic Name Dose Route Start Last Admin Trade Name Freq PRN Reason Stop Dose Admin Albuterol/Ipratropium 3 ml 07/17/23 02:00 07/19/23 09:00 Ipratropium-Albuterol 3 Ml Neb INHALATION 3 ml Q6H.RESP PENNY Administration Docusate Sodium 100 mg 07/16/23 18:00 07/18/23 19:31 Docusate Sodium 100 Mg Capsule PO Not Given BID PENNY Folic Acid 1 mg 07/15/23 09:00 07/18/23 10:44 Folic Acid 1 Mg Tablet PO 1 mg DAILY PENNY Administration Albumin Human 25 g in 100 mls @ 60 mls/hr 07/14/23 22:45 07/19/23 07:51 Albumin IV Infused Q8H PENNY Infusion Vancomycin HCl 750 mg/ Sodium 250 mls @ 250 mls/hr 07/15/23 08:00 07/19/23 08:08 Chloride IV 250 mls/hr Q48H PENNY Administration Meropenem 1,000 mg/ Sodium 50 mls @ 100 mls/hr 07/15/23 08:45 07/19/23 00:02 Chloride IV 100 mls/hr Q8H PENNY Administration Protocol Dextrose 125 mls @ 750 mls/hr 07/15/23 14:49 07/15/23 15:50 D10w IV Infused PRN PRN Infusion HYPOGLYCEMIA Octreotide Acetate 500 mcg/ 101 mls @ 10.1 mls/hr 07/18/23 20:00 07/19/23 07:49 Sodium Chloride IV 50 mcg/hr .Q10H PENNY 10.1 mls/hr Administration 50 MCG/HR norepinephrine 4 mg in 250 mls @ 0 mls/hr 07/19/23 03:30 07/19/23 04:45 Levophed IV 2 mcg/min .Q0M PENNY 7.5 mls/hr Titration Protocol Per Protocol Midodrine 10 mg 07/15/23 02:05 07/18/23 21:37 Midodrine 5 Mg Tablet PO 10 mg TID PENNY Administration Morphine Sulfate 1 mg 07/15/23 16:22 07/19/23 00:02 Morphine 4 Mg/Ml Sdv 1 Ml IVP 1 mg Q4H PRN Administration SEVERE PAIN Multivitamins Therapeutic 1 tab 07/15/23 09:00 07/18/23 10:45 Multivitamin Therapeutic Tablet PO 1 tab DAILY PENNY Administration Ondansetron HCl 4 mg 07/14/23 22:30 07/15/23 04:04 Ondansetron 2 Mg/Ml Sdv 2 Ml IVP 4 mg Q6H PRN Administration NAUSEA AND VOMITING Oxycodone HCl 5 mg 07/16/23 09:34 07/18/23 21:38 Oxycodone 5 Mg Ir Tab/Cap PO 5 mg Q6H PRN Administration MODERATE PAIN Pantoprazole Sodium 40 mg 07/15/23 09:00 07/18/23 21:37 Pantoprazole 40 Mg Sdv IVP 40 mg Q12H PENNY Administration Pregabalin 25 mg 07/15/23 10:30 07/18/23 10:47 Pregabalin 25 Mg Capsule PO 25 mg DAILY PENNY Administration Rifaximin 550 mg 07/15/23 09:00 07/18/23 19:38 Rifaximin 550 Mg Tablet PO 550 mg BID PENNY Administration Protocol Thiamine Mononitrate 100 mg 07/15/23 09:00 07/18/23 10:47 Thiamine 100 Mg Tablet PO 100 mg DAILY PENNY Administration PFSH Acute 2 PFSH: Medical History Liver cirrhosis Alcoholism Hepatitis C COPD (chronic obstructive pulmonary disease) Surgical History History of hysterectomy Family History Mother Lung cancer Father Hyperthermia Social History Smoking and tobacco/nicotine status: current every day tobacco/nicotine user cigarettes Alcohol intake: current Alcohol intake frequency: few times a week Substance/Drug Use: current Substance/Drug use frequency: daily Female Reproductive History: Spontaneous abortions: No Vitals/I&O/Wt Last Vital Signs Temp 99.9 F H 07/19/23 07:30 Pulse 114 H 07/19/23 08:50 Resp 18 07/19/23 08:50 BP 127/59 07/19/23 08:30 Pulse Ox 93 07/19/23 08:50 O2 Del Method Oxymask 07/19/23 08:50 O2 Flow Rate 3 07/19/23 08:50 07/18/23 07/19/23 07/19/23 22:59 06:59 14:59 Intake Total 150 / 1121 916.75 / 2037.75 110 / 110 Output Total 1250 / 1250 725 / 1975 Balance -1100 / -129 191.75 / 62.75 110 / 110 Weight last 48 hrs Weight 151 lb 2 oz Weight 154 lb Physical Exam 2 Narrative: General : Patient is well developed , no acute distress, oriented x3 Head : Normal cephalic, a-traumatic. Ears : Pinnae and external canal are normal. Hearing is normal. Eyes : PERRLA, Sclera and injection are normal. No conjunctival discharge. Nose : Mucous membranes are without erythema. Throat : buccal mucosa is normal, gums are without significant recession or hypertrophy. Lungs : Equal chest rise bilaterally, no use of accessory muscles, trachea is midline. Cor : Rate and rhythm are normal. Abdomen : Soft, distended, positive fluid wave, NT, no g/r/m Rectal: Rectum is prolapsed, very weak anal tone, no obvious large hemorrhoids Extremities : Anasarca, no cyanosis or clubbing, dorsalis pedis pulses are present bilaterally, non-tender to palpation of calves. Upper extremities are normal bilaterally. Back : non-tender to palpation, no CVA tenderness. Neuro : CN II - XII intact, Upper and lower extremities have equal and full strength Urinary Catheter Management: Sales: Cath Placed During This Visit: yes Reason for Continuing Indwelling Catheter: Accurate Measurement of Urinary Output in Critically Ill Patients Urinary Catheter Date of Insertion: 07/15/23 Urinary Catheter Time of Insertion: 01:00 Data 07/19/23 07:26 07/19/23 03:56 Micro: Microbiology 07/15/23 13:45 Gram Stain - Final Peritoneal Fluid Anaerobic Culture - Preliminary Body Fluid Culture - Final 07/17/23 12:15 Blood Culture - Preliminary Blood NEGATIVE TO DATE 07/17/23 12:01 Blood Culture - Preliminary Blood NEGATIVE TO DATE A&P Assessment and plan (1) Rectal prolapse: (2) Bleeding per rectum: Plan Rectal prolapse was manually reduced successfully Recommend EGD and colonoscopy. Patient is currently adverse to anesthesia. Will continue to recommend Medical management per hospitalist Recommend referral to colorectal surgery to treat her rectal prolapse Coding Level of Care Code 74515 Diagnoses Rectal prolapse K62.3 Bleeding per rectum K62.5
--- NOTE | 2023-07-17 15:54 | P.PN_ITS ---
Subjective 2 Subjective: doing better Medications: Reviewed: Yes Vitals/I&O/Wt Last Vital Signs Temp 101.2 F H 07/17/23 01:52 Pulse 109 H 07/17/23 14:05 Resp 21 H 07/17/23 14:31 BP 142/69 07/17/23 12:00 Pulse Ox 92 07/17/23 14:05 O2 Del Method Nasal Cannula 07/17/23 11:30 O2 Flow Rate 3 07/17/23 11:30 07/17/23 07/17/23 07/17/23 06:59 14:59 22:59 Intake Total 1491 / 2580.333 1720.975 / 1720.975 Output Total 650 / 875 Balance 841 / 4343.237 7099.975 / 1720.975 Weight last 48 hrs Weight 75.41 kg Weight 66.088 kg Physical Exam 2 Narrative: Patient is awake , alert on 2 L nasal cannula Dry mucous membranes No pedal edema Urinary Catheter Management: Sales: Cath Placed During This Visit: yes Reason for Continuing Indwelling Catheter: Accurate Measurement of Urinary Output in Critically Ill Patients Urinary Catheter Date of Insertion: 07/15/23 Urinary Catheter Time of Insertion: 01:00 Data 07/17/23 04:30 07/17/23 04:30 Micro: Microbiology 07/17/23 12:15 Blood Culture - Preliminary Blood SPECIMEN COLLECTED 07/17/23 12:01 Blood Culture - Preliminary Blood SPECIMEN COLLECTED 07/15/23 13:45 Gram Stain - Final Peritoneal Fluid Anaerobic Culture - Preliminary Body Fluid Culture - Preliminary A&P Assessment and plan (1) Acute hyponatremia: (2) JEYSON (acute kidney injury): (3) Hyperkalemia: Plan 1. Acute kidney injury: Baseline creatinine was 0.92 months ago and now has an JEYSON with a creatinine of 3 range associated with hyperkalemia and metabolic acidosis. Etiology likely prerenal, in the setting of severe anemia and also cannot rule out HRS in the setting of recent large-volume paracentesis. - off IVFs -s/p albumin plus midodrine plus octreotide -Avoid IV contrast studies - Cr and electrolytes improved -Discussed with patient daughter at bedside 2. Hyperkalemia: Low potassium diet a, improved 3. Severe metabolic acidosis: s/p bicarbonate drip 4. Liver cirrhosis with portal hypertension and recurrent paracentesis 5. Severe anemia: Status post 2 units PRBC, hb 8.5 Patient evaluated using audiovisual cart. Time spent 20 minutes. Attestations 2 Medical Necessity Statement*: per medicine Coding Level of Care Code Acute Code for Chg Fwd Diagnoses Acute hyponatremia E87.1 JEYSON (acute kidney injury) N17.9 Hyperkalemia E87.5
[2023-07-18] VITALS (65 sets, daily range): BP systolic 98–153; BP diastolic 43–96; PULSE 93–124; RESP 10–23; TEMP 37.1–37.4; O2SAT 88–96
[2023-07-18] MEDS: meropenem 1,000 MG in sodium chloride 0.9% (plus) 50 ML 100 MG IV ×3 (01:32→19:38)
[2023-07-18] MEDS: ipratropium-albuterol 3 mL Neb INHALATION ×3 (03:17→20:25)
[2023-07-18] MEDS: morphine 4 mg/mL SDV 1 mL 1 MG IVP ×3 (04:23→19:39)
[2023-07-18 04:48] LABS: Basophils # 0.1 10^3/uL (0.0-0.1); Basophils % 0.9 %; Eosinophils # 0.1 10^3/uL (0.0-0.8); Eosinophils % 0.5 %; Hematocrit 26.1 % (36-47); Lymphocytes # 1.1 10^3/uL (0.8-4.8); Lymphocytes % 8.6 %; Mean Corpuscular Hemoglobin 29.6 pg (27-33); Mean Corpuscular Volume 89.7 fl (85-98); Mean Platelet Volume 10.1 fL (7.4-10.4); Monocytes # 2.3 10^3/uL (0.2-0.9); Monocytes % 17.8 %; Neutrophils # 9.21 10^3/uL (1.8-7.7); Neutrophils % 71.7 %; Nucleated Red Blood Cells % 0 %; Platelet Count 74 10^3/cmm (157-399); Red Blood Count 2.91 10^6/uL (3.85-5.65); Red Cell Distribution Width 24.8 % (12.1-15.1); White Blood Count 12.86 10^3/uL (3.29-11.43)
[2023-07-18 04:53] LABS: INR 1.79 (0.8-1.2)
[2023-07-18 05:10] LABS: Alanine Aminotransferase 44 U/L (0-33); Albumin Level 4.3 g/dL (3.5-5.2); Alkaline Phosphatase 78 U/L (35-105); Blood Urea Nitrogen 25 mg/dL (8-23); Calcium 8.1 mg/dL (8.5-10.5); Carbon Dioxide 25 mmol/L (22-29); Chloride 93 mmol/L (98-107); Creatinine Clr Calc Pharmacy 79.3927; Globulin 1.7 g/dL (1.3-4.6); Glomerular Filtration Rate 85.4 mL/min (90-130); Glucose 133 mg/dL (65-115); Osmolality Calculated 280 mOsm/kg (285-295); Sodium 132 mmol/L (136-145); Total Bilirubin 6.2 mg/dL (0.15-1.2)
[2023-07-18 05:16] LABS: Anion Gap 17.9 (5-19); Aspartate Amino Transferase 87 U/L (0-32); Potassium 3.9 mmol/L (3.5-5.1)
[2023-07-18] MEDS: oxyCODONE 5 mg IR Tab/Cap PO ×4 (05:55→21:38)
[2023-07-18] MEDS: albumin 25 G/100 ML BAG 60 G IV ×3 (05:56→21:58)
--- NOTE | 2023-07-18 08:16 | P.PN_ITS ---
Subjective 2 Subjective: doing well Medications: Reviewed: Yes Vitals/I&O/Wt Last Vital Signs Temp 99.3 F 07/18/23 04:43 Pulse 110 H 07/18/23 06:00 Resp 18 07/18/23 06:00 BP 117/55 07/18/23 06:00 Pulse Ox 90 07/18/23 06:00 O2 Del Method Nasal Cannula 07/18/23 06:00 O2 Flow Rate 3 07/17/23 11:30 07/17/23 07/18/23 07/18/23 22:59 06:59 14:59 Intake Total 485.95 / 2206.925 150 / 2356.925 201 / 201 Output Total 1125 / 1125 200 / 1325 Balance -639.05 / 1081.925 -50 / 1031.925 201 / 201 Weight last 48 hrs Weight 69.853 kg Weight 75.41 kg Physical Exam 2 Narrative: Patient is awake , alert on 2 L nasal cannula Dry mucous membranes No pedal edema Urinary Catheter Management: Sales: Cath Placed During This Visit: yes Reason for Continuing Indwelling Catheter: Accurate Measurement of Urinary Output in Critically Ill Patients Urinary Catheter Date of Insertion: 07/15/23 Urinary Catheter Time of Insertion: 01:00 Data 07/18/23 08:17 07/18/23 04:02 Micro: Microbiology 07/15/23 13:45 Gram Stain - Final Peritoneal Fluid Anaerobic Culture - Preliminary Body Fluid Culture - Preliminary 07/17/23 12:15 Blood Culture - Preliminary Blood SPECIMEN COLLECTED 07/17/23 12:01 Blood Culture - Preliminary Blood SPECIMEN COLLECTED A&P Assessment and plan (1) Acute hyponatremia: (2) JEYSON (acute kidney injury): (3) Hyperkalemia: Plan 1. Acute kidney injury: Baseline creatinine was 0.92 months ago and now has an JEYSON with a creatinine of 3 range associated with hyperkalemia and metabolic acidosis. Etiology likely prerenal, in the setting of severe anemia and also cannot rule out HRS in the setting of recent large-volume paracentesis. - off IVFs -s/p albumin plus midodrine plus octreotide -Avoid IV contrast studies - Cr and electrolytes improved -Discussed with patient daughter at bedside 2. Hyperkalemia: Low potassium diet a, improved 3. Severe metabolic acidosis: s/p bicarbonate drip 4. Liver cirrhosis with portal hypertension and recurrent paracentesis 5. Severe anemia: Status post 2 units PRBC, hb 8.5 Patient evaluated using audiovisual cart. Time spent 20 minutes. Attestations 2 Medical Necessity Statement*: per medicine Coding Level of Care Code Acute Code for Chg Fwd Diagnoses Acute hyponatremia E87.1 JEYSON (acute kidney injury) N17.9 Hyperkalemia E87.5
[2023-07-18 08:25] LABS: Basophils # 0.1 10^3/uL (0.0-0.1); Eosinophils # 0.1 10^3/uL (0.0-0.8); Eosinophils % 0.4 %; Hematocrit 25.2 % (36-47); Lymphocytes % 7.3 %; Mean Corpuscular HGB Conc 33.3 g/dL (30-55); Mean Corpuscular Hemoglobin 30.2 pg (27-33); Mean Corpuscular Volume 90.6 fl (85-98); Mean Platelet Volume 9.7 fL (7.4-10.4); Monocytes # 2.5 10^3/uL (0.2-0.9); Monocytes % 18.2 %; Neutrophils % 72.7 %; Nucleated Red Blood Cells % 0 %; Platelet Count 66 10^3/cmm (157-399); Red Blood Count 2.78 10^6/uL (3.85-5.65); Red Cell Distribution Width 24.7 % (12.1-15.1); White Blood Count 13.48 10^3/uL (3.29-11.43)
--- NOTE | 2023-07-18 09:07 | P.PN_ITS ---
Subjective 2 Subjective: Patient seen and examined. Rectal not currently prolapsed. Denies any pain Vitals/I&O/Wt Last Vital Signs Temp 99.9 F H 07/19/23 07:30 Pulse 114 H 07/19/23 09:06 Resp 18 07/19/23 08:50 BP 127/59 07/19/23 08:30 Pulse Ox 93 07/19/23 08:50 O2 Del Method Oxymask 07/19/23 08:50 O2 Flow Rate 3 07/19/23 08:50 07/18/23 07/19/23 07/19/23 22:59 06:59 14:59 Intake Total 150 / 1121 916.75 / 2037.75 110 / 110 Output Total 1250 / 1250 5 / 1975 Balance -1100 / -129 191.75 / 62.75 110 / 110 Weight last 48 hrs Weight 151 lb 2 oz Weight 154 lb Physical Exam 2 Narrative: General: No acute distress, awake alert and oriented x 3 Abdomen: Soft, distended, nontender Rectum: No prolapse Urinary Catheter Management: Sales: Cath Placed During This Visit: yes Reason for Continuing Indwelling Catheter: Accurate Measurement of Urinary Output in Critically Ill Patients Urinary Catheter Date of Insertion: 07/15/23 Urinary Catheter Time of Insertion: 01:00 Data 07/19/23 07:26 07/19/23 03:56 Micro: Microbiology 07/15/23 13:45 Gram Stain - Final Peritoneal Fluid Anaerobic Culture - Preliminary Body Fluid Culture - Final 07/17/23 12:15 Blood Culture - Preliminary Blood NEGATIVE TO DATE 07/17/23 12:01 Blood Culture - Preliminary Blood NEGATIVE TO DATE A&P Assessment and plan (1) Rectal prolapse: (2) Bleeding per rectum: Plan Rectal prolapse was manually reduced successfully yesterday Recommend EGD and colonoscopy. Patient is currently adverse to anesthesia. Will continue to recommend Medical management per hospitalist Recommend referral to colorectal surgery to treat her rectal prolapse Attestations 2 Medical Necessity Statement*: Per primary Coding Level of Care Code 89847 Diagnoses Rectal prolapse K62.3 Bleeding per rectum K62.5
--- NOTE | 2023-07-18 09:44 | P.PN_ITS ---
Subjective 2 Subjective: Wants more to eat. Feels less swollen. Does not mention back pain while I am in the room. Believes her belly is a little softer. Medications: Reviewed: Yes Vitals/I&O/Wt Last Vital Signs Temp 99.3 F 07/18/23 04:43 Pulse 107 H 07/18/23 08:39 Resp 19 H 07/18/23 08:39 BP 117/55 07/18/23 06:00 Pulse Ox 91 07/18/23 08:39 O2 Del Method Nasal Cannula 07/18/23 08:39 O2 Flow Rate 3 07/18/23 08:39 07/17/23 07/18/23 07/18/23 22:59 06:59 14:59 Intake Total 485.95 / 2206.925 150 / 2356.925 201 / 201 Output Total 1125 / 1125 200 / 1325 Balance -639.05 / 1081.925 -50 / 1031.925 201 / 201 Weight last 48 hrs Weight 69.853 kg Weight 75.41 kg Physical Exam 2 Narrative: General exam white female alert and conversive Neck is supple Cardiovascular tachycardic, regular, no murmur Lungs coarse breath sounds bilaterally right greater than left Abdomen with ascites. Bowel sounds noted exam Sales noted. Extremities 2+ edema Urinary Catheter Management: Sales: Cath Placed During This Visit: yes Reason for Continuing Indwelling Catheter: Accurate Measurement of Urinary Output in Critically Ill Patients Urinary Catheter Date of Insertion: 07/15/23 Urinary Catheter Time of Insertion: 01:00 Data 07/18/23 08:17 07/18/23 04:02 Micro: Microbiology 07/15/23 13:45 Gram Stain - Final Peritoneal Fluid Anaerobic Culture - Preliminary Body Fluid Culture - Preliminary 07/17/23 12:15 Blood Culture - Preliminary Blood SPECIMEN COLLECTED 07/17/23 12:01 Blood Culture - Preliminary Blood SPECIMEN COLLECTED A&P Assessment and plan (1) Acute hyperkalemia: Patient presents with significant hyperkalemia. This has improved with treatment with Kayexalate and other medications. Potassium is now normal Hold Aldactone also holding Bactrim which she was on as prophylaxis for SBP Appreciate nephrology consultation (2) Acute hyponatremia: Patient with significant hyponatremia Continues to slowly improve (3) Acute hypotension: Has improved Now off norepinephrine Continue midodrine (4) Acute renal failure: Significant acute kidney injury Associated with liver disease, may have hepatorenal syndrome. Currently on midodrine, albumin, octreotide Sales to monitor output Discontinue octreotide today With renal function normalizing, Lasix 60 mg IV today, consider afternoon dose. She has quite a bit of third spacing from her liver disease and resuscitation Qualifiers: Acute renal failure type: unspecified Qualified Code(s): N17.9 - Acute kidney failure, unspecified (5) Acute anemia: Patient presented with acute anemia. Await CT abdomen pelvis secondary symptoms and some bruising on her left side. Has not had previous EGD to look for varices, but has had blood per rectum secondary to rectal prolapse. She has received a total of 3 units packed red blood cells. Hemoglobin appears stable today No evidence of active bleeding (6) Hyperammonemia: Continue rifaximin. Lactulose has not been given secondary to history of rectal prolapse (7) Abdominal ascites: Patient with significant ascites. Paracentesis per radiology was performed. Awaiting culture. Did not have significant amount of PMNs. Culture pending but may be negative as prelim shows no concerns at this time. 900 cc removed at that time. Qualifiers: Ascites type: due to alcoholic cirrhosis Qualified Code(s): K70.31 - Alcoholic cirrhosis of liver with ascites (8) Chronic alcohol use: Patient with chronic alcohol use. CIWA protocol initiated. Does not seem to be withdrawing today (9) COPD (chronic obstructive pulmonary disease): DuoNeb as needed Qualifiers: COPD type: chronic bronchitis (10) Liver cirrhosis: Significant cirrhosis, with creasing bilirubin. Continue supportive care. Last drink days ago. I am not sure she will stop drinking. Lipase not elevated Bilirubin slightly higher than yesterday. Rest of LFTs improved LFTs tomorrow CBC, CMP, in the morning Qualifiers: Ascites presence: with ascites Hepatic cirrhosis type: alcoholic cirrhosis Qualified Code(s): K70.31 - Alcoholic cirrhosis of liver with ascites Plan Right-sided pneumonia. Continued fever. Await sputum culture, MRSA PCR. Continue IV antibiotics of meropenem, vancomycin. Fever curve appears to be improving Rectal prolapse, expect this to continue intermittently Elevated troponin. Echo demonstrates preserved EF, no obvious lesions Fluid overload, from resuscitation. 60 mg of Lasix IV now. IV fluids are discontinued. Initiate diet. Other medical problems per past medical history Full code SCDs for DVT prophylaxis, anticoagulation contraindicated secondary to severe anemia Protonix for GI prophylaxis Slowly improving. Possible transfer later today/tomorrow out of ICU Attestations 2 Medical Necessity Statement*: Needs continued hospitalization for diuresis secondary to fluid overload from resuscitation from renal, liver failure in this patient with pneumonia and severe anemia. Diagnoses Acute hyperkalemia E87.5 Acute hyponatremia E87.1 Acute hypotension I95.9 Acute renal failure N17.9 Acute renal failure type: unspecified Acute anemia D64.9 Hyperammonemia E72.20 Ascites due to alcoholic cirrhosis K70.31 Ascites type: due to alcoholic cirrhosis Chronic alcohol use Z72.89 COPD (chronic obstructive pulmonary disease) J44.9 COPD type: chronic bronchitis Alcoholic cirrhosis of liver with ascites K70.31 Ascites presence: with ascites Hepatic cirrhosis type: alcoholic cirrhosis Time Spent (min) 25
[2023-07-18] MEDS: FUROsemide 10 mg/mL SDV 10mL 60 MG IVP (10:41)
[2023-07-18] MEDS: pantoprazole 40 mg SDV IVP ×2 (10:44→21:37)
[2023-07-18] MEDS: folic acid 1 mg Tablet PO (10:44)
[2023-07-18] MEDS: midodrine 5 mg TABLET 10 MG PO ×3 (10:44→21:37)
[2023-07-18] MEDS: docusate sodium 100 mg Capsule PO (10:45)
[2023-07-18] MEDS: multivitamin therapeutic Tablet 1 TAB PO (10:45)
[2023-07-18] MEDS: pregabalin 25 mg Capsule PO (10:47)
[2023-07-18] MEDS: thiamine 100 mg Tablet PO (10:47)
[2023-07-18 13:49] LABS: Methicillin-Resist S.aureu PCR NOT DETECTED (NOT DETECTED)
[2023-07-18] MEDS: FUROsemide 10 mg/mL SDV 4mL 40 MG IVP (19:38)
--- NOTE | 2023-07-18 19:44 | PC.NURSE ---
At the beginning of this nurse's shift the patient has excessive bleeding from the rectum with small blood clots noted. Dr. Lau was notified and he ordered for the patient to remain in the ICU and to re start octreotide. He stated that he will contact the surgeon to see what can be done for the patient.
[2023-07-18 20:42] LABS: Hematocrit 21.1 % (36-47)
[2023-07-18] MEDS: octreotide 500 MCG in sodium chloride 0.9% (100 ml) 100 ML 10.0999999999999996 MCG IV (20:49)
[2023-07-19] VITALS (48 sets, daily range): BP systolic 61–132; BP diastolic 40–78; PULSE 98–121; RESP 9–35; TEMP 37–37.7; O2SAT 88–100
[2023-07-19] MEDS: meropenem 1,000 MG in sodium chloride 0.9% (plus) 50 ML 100 MG IV ×3 (00:02→16:12)
[2023-07-19] MEDS: morphine 4 mg/mL SDV 1 mL 1 MG IVP (00:02)
[2023-07-19] MEDS: ipratropium-albuterol 3 mL Neb INHALATION ×2 (02:37→09:00)
[2023-07-19 03:17] LABS: Hematocrit 20.6 % (36-47)
[2023-07-19] MEDS: norepinephrine 4 MG/250 ML BAG 7.5 MG IV (03:34)
[2023-07-19 04:31] LABS: Basophils # 0.2 10^3/uL (0.0-0.1); Basophils % 0.8 %; Eosinophils # 0.1 10^3/uL (0.0-0.8); Eosinophils % 0.6 %; Lymphocytes # 1.9 10^3/uL (0.8-4.8); Lymphocytes % 10.5 %; Mean Corpuscular HGB Conc 33.2 g/dL (30-55); Mean Corpuscular Hemoglobin 29.6 pg (27-33); Mean Corpuscular Volume 89.4 fl (85-98); Mean Platelet Volume 9.4 fL (7.4-10.4); Monocytes # 3.5 10^3/uL (0.2-0.9); Monocytes % 19.3 %; Neutrophils # 12.17 10^3/uL (1.8-7.7); Neutrophils % 67.8 %; Nucleated Red Blood Cells % 0 %; Platelet Count 82 10^3/cmm (157-399); Red Blood Count 2.26 10^6/uL (3.85-5.65); White Blood Count 17.96 10^3/uL (3.29-11.43)
[2023-07-19 04:35] LABS: Hematocrit 20.2 % (36-47)
[2023-07-19 04:52] LABS: Alanine Aminotransferase 30 U/L (0-33); Albumin Level 3.8 g/dL (3.5-5.2); Alkaline Phosphatase 55 U/L (35-105); Anion Gap 13.3 (5-19); Aspartate Amino Transferase 54 U/L (0-32); Blood Urea Nitrogen 23 mg/dL (8-23); Calcium 7.9 mg/dL (8.5-10.5); Carbon Dioxide 28 mmol/L (22-29); Chloride 93 mmol/L (98-107); Creatinine Clr Calc Pharmacy 66.8445; Glomerular Filtration Rate 73.2 mL/min (90-130); Glucose 148 mg/dL (65-115); Magnesium 1.1 mg/dL (1.7-2.3); Osmolality Calculated 278 mOsm/kg (285-295); Potassium 3.3 mmol/L (3.5-5.1); Sodium 131 mmol/L (136-145); Total Bilirubin 6.6 mg/dL (0.15-1.2); Total Protein 4.8 g/dL (6.6-8.7)
[2023-07-19] MEDS: albumin 25 G/100 ML BAG 60 G IV ×2 (06:08→14:30)
[2023-07-19 07:32] LABS: Hematocrit 22.4 % (36-47)
[2023-07-19] MEDS: octreotide 500 MCG in sodium chloride 0.9% (100 ml) 100 ML 10.0999999999999996 MCG IV (07:49)
[2023-07-19] MEDS: vancomycin 750 MG in sodium chloride 0.9% 250 ML 250 MG IV (08:08)
[2023-07-19] MEDS: pantoprazole 40 mg SDV IVP (09:12)
--- NOTE | 2023-07-19 09:48 | P.PN_ITS ---
Subjective 2 Subjective: Patient with active hematochezia overnight requiring transfusions. Rectum remains in anatomic position and does not prolapse currently Vitals/I&O/Wt Last Vital Signs Temp 99.9 F H 07/19/23 07:30 Pulse 114 H 07/19/23 09:06 Resp 18 07/19/23 08:50 BP 127/59 07/19/23 08:30 Pulse Ox 93 07/19/23 08:50 O2 Del Method Oxymask 07/19/23 08:50 O2 Flow Rate 3 07/19/23 08:50 07/18/23 07/19/23 07/19/23 22:59 06:59 14:59 Intake Total 150 / 1121 916.75 / 2037.75 360 / 360 Output Total 1250 / 1250 725 / 1975 Balance -1100 / -129 191.75 / 62.75 360 / 360 Weight last 48 hrs Weight 151 lb 2 oz Weight 154 lb Physical Exam 2 Narrative: General: No acute distress, awake alert and oriented x 3 Rectum: Not prolapsed, grade 4 hemorrhoids with active hematochezia Urinary Catheter Management: Sales: Cath Placed During This Visit: yes Reason for Continuing Indwelling Catheter: Accurate Measurement of Urinary Output in Critically Ill Patients Urinary Catheter Date of Insertion: 07/15/23 Urinary Catheter Time of Insertion: 01:00 Data 07/19/23 07:26 07/19/23 03:56 Micro: Microbiology 07/15/23 13:45 Gram Stain - Final Peritoneal Fluid Anaerobic Culture - Preliminary Body Fluid Culture - Final 07/17/23 12:15 Blood Culture - Preliminary Blood NEGATIVE TO DATE 07/17/23 12:01 Blood Culture - Preliminary Blood NEGATIVE TO DATE A&P Assessment and plan (1) Hemorrhoids: (2) Rectal prolapse: (3) Bleeding per rectum: Plan Rectal prolapse was manually reduced successfully on but now she has active hematochezia Tranexamic acid 1 g now and 1 g an hour Thrombin-soaked Gelfoam placed into the anus Recommend transfer to colorectal surgery. Rectal surgery is not done at this hospital and we do not have equipment for hemorrhoidal banding. Medical management per hospitalist Attestations 2 Medical Necessity Statement*: Per primary Coding Level of Care Code Acute Code for [facility] Diagnoses Hemorrhoids K64.9 Rectal prolapse K62.3 Bleeding per rectum K62.5
[2023-07-19] MEDS: thrombin 5,000 unit SDV 10000 UNIT XX (09:52)
--- NOTE | 2023-07-19 10:05 | PC.PT ---
Nurse requested no PT today, will check on pt tomorrow.
[2023-07-19] MEDS: folic acid 1 mg Tablet PO (10:16)
[2023-07-19] MEDS: pregabalin 25 mg Capsule PO (10:16)
[2023-07-19] MEDS: docusate sodium 100 mg Capsule PO (10:16)
[2023-07-19] MEDS: thiamine 100 mg Tablet PO (10:16)
[2023-07-19] MEDS: tranexamic acid 1,000 MG/100 ML PREMIX 600 MG IV ×2 (10:16→10:56)
[2023-07-19] MEDS: multivitamin therapeutic Tablet 1 TAB PO (10:16)
[2023-07-19] MEDS: midodrine 5 mg TABLET 10 MG PO ×2 (10:17→14:30)
--- NOTE | 2023-07-19 10:52 | P.PN_ITS ---
Subjective 2 Subjective: had LG blleding last night requiring transfusions Medications: Reviewed: Yes Vitals/I&O/Wt Last Vital Signs Temp 99.9 F H 07/19/23 07:30 Pulse 118 H 07/19/23 10:00 Resp 25 H 07/19/23 10:00 BP 107/51 07/19/23 10:00 Pulse Ox 94 07/19/23 10:00 O2 Del Method Nasal Cannula 07/19/23 10:00 O2 Flow Rate 3 07/19/23 09:00 07/18/23 07/19/23 07/19/23 22:59 06:59 14:59 Intake Total 150 / 1121 966.75 / 2087.75 510 / 510 Output Total 1250 / 1250 725 / 1975 Balance -1100 / -129 241.75 / 112.75 510 / 510 Weight last 48 hrs Weight 68.549 kg Weight 69.853 kg Physical Exam 2 Narrative: Patient is awake , alert on 2 L nasal cannula Dry mucous membranes No pedal edema Urinary Catheter Management: Sales: Cath Placed During This Visit: yes Reason for Continuing Indwelling Catheter: Accurate Measurement of Urinary Output in Critically Ill Patients Urinary Catheter Date of Insertion: 07/15/23 Urinary Catheter Time of Insertion: 01:00 Data 07/19/23 07:26 07/19/23 03:56 Micro: Microbiology 07/15/23 13:45 Gram Stain - Final Peritoneal Fluid Anaerobic Culture - Preliminary Body Fluid Culture - Final 07/17/23 12:15 Blood Culture - Preliminary Blood NEGATIVE TO DATE 07/17/23 12:01 Blood Culture - Preliminary Blood NEGATIVE TO DATE A&P Assessment and plan (1) Acute hyponatremia: (2) JEYSON (acute kidney injury): (3) Hyperkalemia: Plan 1. Acute kidney injury: Baseline creatinine was 0.92 months ago and now has an JEYSON with a creatinine of 3 range associated with hyperkalemia and metabolic acidosis. Etiology likely prerenal, in the setting of severe anemia and also cannot rule out HRS in the setting of recent large-volume paracentesis. - off IVFs -s/p albumin plus midodrine plus octreotide -Avoid IV contrast studies - Cr and electrolytes improved -Discussed with patient daughter at bedside 2. Hyperkalemia: Low potassium diet a, improved 3. Severe metabolic acidosis: s/p bicarbonate drip 4. Liver cirrhosis with portal hypertension and recurrent paracentesis 5. Severe anemia: Status post 2 units PRBC, 6. Rectal prolapse and bleeding Patient evaluated using audiovisual cart. Time spent 20 minutes. Attestations 2 Medical Necessity Statement*: per crow Coding Level of Care Code Acute Code for Chg Fwd Diagnoses Acute hyponatremia E87.1 JEYSON (acute kidney injury) N17.9 Hyperkalemia E87.5
--- NOTE | 2023-07-19 11:09 | XRR_ITS ---
PROCEDURE INFORMATION: Exam: XR Abdomen Exam date and time: 07/19/2023 12:23 PM Age: 62 years old Clinical indication: Bloating and other: Hematochezia TECHNIQUE: Imaging protocol: Radiologic exam lower abdomen. Views: 2 Views. Upright and supine views. COMPARISON: CR XR chest 1V portable [id number] 07/17/2023 10:24 AM FINDINGS: Lungs: Increased bilateral upper lung interstitial opacities. Gastrointestinal tract: Increased bowel distension Intraperitoneal space: No free air. Bones/joints: No acute findings. XR/XR acute abdomen series [id number] IMPRESSION: Diffuse gaseous distension of the bowel which may be secondary to ileus or developing obstruction. Increased bilateral upper lobe interstitial opacities.
[2023-07-19 11:32] LABS: Iron 74 ug/dL (37-145)
[2023-07-19] MEDS: potassium chloride ER 20 mEq Tablet 40 MEQ PO (11:32)
[2023-07-19] MEDS: magnesium sulfate premix 2 GM/50 ML PIGGYBACK IV (11:33)
[2023-07-19 11:44] LABS: HIV 1 & 2 Antibody Non-Reactive (Non-Reactiv); HIV 1 & 2 Antigen Non-Reactive (Non-Reactiv)
[2023-07-19 11:49] LABS: Vitamin B12 649 pg/mL (232-1245)
[2023-07-19 11:55] LABS: Hepatitis A Antibody IgM Non-Reactive (Nonreactive); Hepatitis B Core AB, Total Non-Reactive (Nonreactive); Hepatitis B Surface AB < 3.5 (11.5-1000); Hepatitis B Surface Antigen Non-Reactive (Nonreactive); Hepatitis C Virus Antibody Reactive (Nonreactive)
[2023-07-19 12:06] LABS: Total Iron Binding Capacity 77.99999 mcg/dl; Unsaturated Iron Binding < 4 ug/dL (112-347)
--- NOTE | 2023-07-19 12:10 | PC.NURSE ---
Patient being assessed on CIWA scale for withdraw, Patent stated she didn't think her daughter wanted her to have Ativan, Daughter Crystal to bedside, Education provided to daughter and patient on reason for medication. Dr. Lau notified ,refusal Ativan.
--- NOTE | 2023-07-19 12:44 | USR_ITS ---
PROCEDURE INFORMATION: Exam: US Duplex Left Upper Extremity Veins, Limited Exam date and time: 07/19/2023 1:59 PM Age: 62 years old Clinical indication: Edema, localized; Upper extremity, left; Additional info: Edema, bruising at picc site, possible clotting TECHNIQUE: Imaging protocol: Real-time duplex ultrasound of the left extremity with 2-D rincon scale, color Doppler flow and spectral waveform analysis including responses to compression and other maneuvers (when performed) with image documentation. Limited exam focused on the left upper extremity veins. COMPARISON: CT angio chest PE protcl [id number] 12/16/2019 6:51 PM FINDINGS: Veins: Patent throughout without clot/thrombus. Preserved Doppler waveforms. Normal compressibility and/or augmentation [place] [id number] IMPRESSION: No acute findings.
[2023-07-19] MEDS: nicotine 21 mg Patch 1 PATCH TRANSDERMA (12:51)
[2023-07-19] MEDS: ipratropium 0.5 mg/2.5 mL Neb INHALATION (13:52)
[2023-07-19] MEDS: levalbuterol 0.63 mg/3 mL Neb 0.630000000000000004 MG INHALATION (13:52)
[2023-07-19] MEDS: lanolin oint 7 gm 1 APPLIC TOPICAL (14:10)
--- NOTE | 2023-07-19 14:15 | CTR_ITS ---
PROCEDURE INFORMATION: Exam: CT Chest Without Contrast; Diagnostic Exam date and time: 07/19/2023 3:08 PM Age: 62 years old Clinical indication: Bloating; Shortness of breath; Additional info: Pna, possible sbo, hematochezia TECHNIQUE: Imaging protocol: Diagnostic computed tomography of the chest without contrast. Radiation optimization: All CT scans at this facility use at least one of these dose optimization techniques: automated exposure control; mA and/or kV adjustment per patient size (includes targeted exams where dose is matched to clinical indication); or iterative reconstruction. COMPARISON: CT angio chest PE protcl [id number] 12/16/2019 6:51 PM and chest x-ray 07/15/2023 RADIATION DOSE METRICS: Total DLP (mGy-cm): 720.65 FINDINGS: Tubes, catheters and devices: There is a left-sided central line terminating at the junction of the subclavian vein and SVC. Lungs: There are diffuse upper lobe mixed interstitial/ground-glass opacities superimposed on upper lobe emphysematous changes that has developed or progressed from recent chest x-ray. Findings may be infectious in nature or secondary to pulmonary hemorrhage. There is bibasilar atelectasis more pronounced on the right progressed from previous examination with minimal accompanying bilateral pleural effusions. There is a 2 cm mildly spiculated lung mass is situated centrally in the right upper lobe that has developed from prior CT exam that is likely malignant in nature. Pleural spaces: See Lungs finding. Heart: Heart is not significantly enlarged. No significant coronary artery calcifications. No significant pericardial effusion. Lymph nodes: There is mild mediastinal lymphadenopathy developed from previous CT exam, nonspecific and may be reactive or metastatic in nature. Vasculature: Scattered atherosclerotic changes of the thoracic aorta. No aortic aneurysm. Bones/joints: Unremarkable. No acute fracture. Soft tissues: Unremarkable. PROCEDURE INFORMATION: Exam: CT Abdomen And Pelvis Without Contrast Exam date and time: 07/19/2023 3:08 PM Age: 62 years old Clinical indication: Bloating; Shortness of breath; Additional info: Pna, possible sbo, hematochezia TECHNIQUE: Imaging protocol: Computed tomography of the abdomen and pelvis without contrast. Radiation optimization: All CT scans at this facility use at least one of these dose optimization techniques: automated exposure control; mA and/or kV adjustment per patient size (includes targeted exams where dose is matched to clinical indication); or iterative reconstruction. COMPARISON: CT abdomen pelvis wo con [id number] 07/15/2023 7:52 AM RADIATION DOSE METRICS: Total DLP (mGy-cm): 720.65 FINDINGS: Lungs: Lung bases are clear. Liver: Liver has a cirrhotic shrunken contour unchanged. Accentuated portosystemic collaterals in the upper abdomen unchanged. Gallbladder and bile ducts: Numerous small gallstones dependent portion the gallbladder unchanged otherwise gallbladder is unremarkable. Bile ducts are not dilated. Pancreas: Normal. No ductal dilation. Spleen: Spleen is not significantly enlarged. Adrenal glands: Normal. No mass. Kidneys and ureters: Normal. No hydronephrosis. Stomach and bowel: Generalized gaseous distension involving small and large bowel loops worsened from prior study likely secondary to progressive ileus. In addition there is increased intraluminal density within varies portions of the GI tract most notably the right colon with some layering noted within the cecum that may represent blood products from recent or active GI bleeding. Appendix: No evidence of appendicitis. Intraperitoneal space: Moderate amount of ascites throughout the abdomen and pelvis slightly progressed in extent from prior study. Vasculature: Abdominal aorta and iliac vessels are diffusely calcified. There is no aortic aneurysm. Lymph nodes: Unremarkable. No enlarged lymph nodes. Urinary bladder: There is a Sales catheter balloon within the urinary bladder which is collapsed and difficult to further assess. Reproductive: Unremarkable as visualized. Bones/joints: Unremarkable. No acute fracture. Soft tissues: Pronounced anasarca in the soft tissues progressed from prior study. CT/[place] [id number] IMPRESSION: 1. Diffuse upper lobe interstitial/ground-glass infiltrates developed or progressed from 07/15/2023 and may be infectious in nature or secondary to pulmonary hemorrhage. 2. Bibasilar atelectasis more pronounced on the right progressed from previous exam. 3. 2 cm spiculated lung mass right upper lobe likely malignant in nature. 4. Mild mediastinal lymphadenopathy, nonspecific. IMPRESSION: 1. Progressive gaseous distension of small and large bowel loops likely secondary to worsening ileus. No compelling evidence of bowel obstruction. 2. Increased intraluminal density within the GI tract most apparent within the right colon which may be related to medication usage but could also be seen secondary to active or recent GI hemorrhage. Findings could be further assessed on CTA of the abdomen and pelvis or nuclear medicine bleeding scan. 3. Cirrhosis with moderate accompanying ascites that has mildly increased from prior study. 4. Extensive anasarca in the soft tissues progressed from previous exam. 5. Cholelithiasis without evidence of acute cholecystitis. 6. Additional chronic findings as above.
--- NOTE | 2023-07-19 14:16 | P.PN_ITS ---
Vitals/I&O/Wt Last Vital Signs Temp 98.9 F 07/19/23 14:02 Pulse 107 H 07/19/23 14:02 Resp 19 H 07/19/23 14:02 BP 98/45 07/19/23 14:02 Pulse Ox 94 07/19/23 14:02 O2 Del Method Nasal Cannula 07/19/23 13:52 O2 Flow Rate 3 07/19/23 13:52 07/18/23 07/19/23 07/19/23 22:59 06:59 14:59 Intake Total 150 / 1121 966.75 / 2087.75 770.542 / 770.542 Output Total 1250 / 1250 725 / 1975 Balance -1100 / -129 241.75 / 112.75 770.542 / 770.542 Weight last 48 hrs Weight 68.549 kg Weight 69.853 kg Physical Exam 2 Urinary Catheter Management: Sales: Cath Placed During This Visit: yes Reason for Continuing Indwelling Catheter: Accurate Measurement of Urinary Output in Critically Ill Patients Urinary Catheter Date of Insertion: 07/15/23 Urinary Catheter Time of Insertion: 01:00 Data 07/19/23 07:26 07/19/23 03:56 Micro: Microbiology 07/15/23 13:45 Gram Stain - Final Peritoneal Fluid Anaerobic Culture - Preliminary Body Fluid Culture - Final 07/17/23 12:15 Blood Culture - Preliminary Blood NEGATIVE TO DATE 07/17/23 12:01 Blood Culture - Preliminary Blood NEGATIVE TO DATE Coding Level of Care Code Acute Code for Chg Fwd
--- NOTE | 2023-07-19 14:44 | P.TS_ITS ---
Transfer Summary Providers Date of Admission: 07/14/23 21:35 Date of Discharge/Transfer: 07/19/23 Attending Provider at Admission: Dasia Hoffmann MD Attending Provider at Transfer: Alvarado Lau MD Consults: Surgery: Dr. Mcdonald Tele nephrology Primary Care Provider: Trenton Alas DO Transfer Plans: Anticipated date of transfer: 07/19/23 . Receiving Facility: [facility] . Receiving Provider: Dr. Hargrove . Diagnoses at Discharge Discharge Diagnosis (1) Acute hyponatremia: Status: Acute (2) Hyperkalemia: Status: Acute (3) Chronic alcohol use: Status: Acute (4) Acute hypotension: Status: Acute (5) Thrombocytopenia: Status: Acute (6) Hyperammonemia: Status: Acute (7) Nausea and vomiting: Status: Acute Qualifiers: Vomiting type: unspecified Qualified Code(s): R11.2 - Nausea with vomiting, unspecified (8) Liver cirrhosis: Status: Acute Qualifiers: Ascites presence: with ascites Hepatic cirrhosis type: alcoholic cirrhosis Qualified Code(s): K70.31 - Alcoholic cirrhosis of liver with ascites (9) Rectal prolapse: Status: Chronic (10) Bleeding per rectum: Status: Acute (11) Hemorrhoids: Status: Acute (12) Acute renal failure: Status: Acute Qualifiers: Acute renal failure type: unspecified Qualified Code(s): N17.9 - Acute kidney failure, unspecified (13) Acute anemia: Status: Acute (14) COPD (chronic obstructive pulmonary disease): Status: Acute Qualifiers: COPD type: chronic bronchitis Reason for Visit Reason for Visit WEAKNESS Brief History: Susie Bassett is a 62 year old female With a known past medical history of liver cirrhosis attributed to alcohol abuse. She presents to the hospital today via EMS for increased generalized weakness, hypotension. States she has been feeling very dizzy, unable to carry out her daily activities. Upon ER arrival she was noted to be hypotensive with blood pressure of 78/47. She reports she has had increasing abdominal distention over the past week. She undergoes frequent paracentesis as outpatient with Dr. Dumont. Most recent paracentesis was 4 to 5 days ago at which time she states only 2 bottles were able to be removed whereas typically she gets much higher volumes out. There was suspected bladder injury at the time of paracentesis most recently. She denies any dysuria. Denies any hematuria. She was noted to be having urinary retention today and more than 350 cc for which Sales catheter was placed. She has multiple lab abnormalities today including severe anemia. Hemoglobin at 5.5. Patient states she has longstanding anemia, with baseline hemoglobin between 8.9-10. She denies any hematemesis or melena, however has a history of rectal prolapse with frequently bleeding hemorrhoids. Most recently she had rectal bleeding 2 days ago. States this was blood noted on the toilet paper without any large-volume in the toilet bowl. She denies any past history of GI bleeding. Does not get endoscopy evaluation routinely. Labs also notable for acute renal failure with creatinine at 3.3, previously normal at 0.9. No past history of kidney stones. Noted to have urinary retention today for which Sales catheter was placed, yielding 350 cc of urine. Typically takes Lasix every day along with spironolactone. She has recently also been on Bactrim for SBP ppx. Review of systems positive for abdominal pain related to distention. Denies any recent fever chills nausea vomiting. Hospital Course Hospital Course Patient was admitted to the hospital further evaluation and management of shock. On admission he was found to be in acute kidney injury liver cirrhosis, chronic thrombocytopenia, oliguric, anemic with hemoglobin down to 5.7. She was started on treatment for hepatorenal syndrome with octreotide, midodrine and albumin. Nephrology was consulted. She received blood transfusion was started on treatment for GI bleed with Protonix fluid resuscitation. She responded well to the treatment and her JEYSON resolved with good urine output. Patient came back to her baseline mentation. On admission she also had alcohol level of around 260. She did not have any symptoms of alcohol withdrawal. She was also started on broad-spectrum antibiotics with concerns for pneumonia. Currently patient is on 2 L oxygen supplementation. Has been afebrile for last 36 hours. Her cultures have remained negative. Patient also contains history of rectal prolapse. She continues to have occasional episode of hematochezia. Surgery was consulted and rectal prolapse was reduced. Overnight patient had increased hematochezia with the development of shock requiring Levophed along with 20 of blood transfusion to maintain hemoglobin around 7.6. As per surgical team patient would need EGD, colonoscopy, correction of rectal prolapse and hemorrhoidectomy which unfortunately cannot be done at our hospital. Transfer was sought for further management after confirming with the patient. She has been accepted at [facility] for further evaluation and management. She has been transferred in relatively hemodynamically stable condition for further management. Overall she received 5 unit of blood transfusion and 3 units of FFP was also been ordered today. Physical Exam Narrative: General exam white female alert and conversive Neck is supple Cardiovascular tachycardic, regular, no murmur Lungs coarse breath sounds bilaterally right greater than left Abdomen with ascites. Bowel sounds noted exam Sales noted. Extremities 2+ edema Urinary Catheter Management: Sales: Cath Placed During This Visit: yes Reason for Continuing Indwelling Catheter: Accurate Measurement of Urinary Output in Critically Ill Patients Urinary Catheter Date of Insertion: 07/15/23 Urinary Catheter Time of Insertion: 01:00 TS Data Studies Completed and Pending Pending at discharge Category Date Time Status CT chest abdomen pelvis [[place] [id number] Cat Scan 07/19/23 14:15 Ordered ] Routine ABO/Rh Type Stat Lab 07/18/23 22:15 Results Anaerobic Culture Routine Lab 07/15/23 13:45 Results Blood Culture Stat Lab 07/14/23 22:51 Results Blood Culture Stat Lab 07/17/23 12:15 Results Body Fluid Culture & GS Routine Lab 07/15/23 13:45 Results C.Diff PCR (Lab) Routine Lab 07/19/23 11:09 Ordered Complete Blood Count w/Auto AM LABS Lab 07/20/23 04:00 Ordered Complete Crossmatch Stat Lab 07/18/23 22:15 Results Comprehensive Metabolic Panel AM LABS Lab 07/20/23 04:00 Ordered FFP [Frozen Plasma FZ <24 1st Cont] Routine Lab 07/19/23 12:05 Results Folate Level AM LABS Lab 07/20/23 04:00 Ordered Hepatitis C RNA Viral Load Qnt Routine Lab 07/19/23 12:58 Received Lactoferrin Routine Lab 07/19/23 11:09 Ordered Leukocyte Reduced RBC Stat Lab 07/18/23 22:15 Results MAG [Magnesium] AM LABS Lab 07/20/23 04:00 Ordered MAG [Magnesium] AM LABS Lab 07/21/23 04:00 Ordered MAG [Magnesium] AM LABS Lab 07/22/23 04:00 Ordered OVA and Parasites, Conc and PE Routine Lab 07/19/23 11:09 Ordered Salmonella / Shigella / Campy Routine Lab 07/19/23 11:09 Ordered Sputum Culture and Gram Stain Routine Lab 07/16/23 09:39 Uncollected Type and Screen Stat Lab 07/18/23 22:15 Results Vancomycin Random Timed Lab 07/20/23 07:00 Ordered Completed Studies During Hospitalization Category Date Time Status CT abdomen pelvis wo con [id number] Routine Cat Scan 07/15/23 02:01 Completed CXRP [XR chest 1V portable [id number]] Routine Exams 07/15/23 13:57 Completed XR acute abdomen series [id number] Routine Exams 07/19/23 11:09 Completed XR chest 1V portable [id number] Routine Exams 07/17/23 10:04 Completed XR chest 1V portable [id number] Stat Exams 07/14/23 20:36 Completed CV. echo complete* [id number] Routine Ultrasound 07/16/23 09:06 Completed US paracentesis abdomen [[place] [id number]] Ultrasound 07/15/23 02:01 Completed Routine US venous duplex upper extremity LT [CV venous duplex Ultrasound 07/19/23 12:[place] [id number]] Routine Laboratory Last Values WBC 17.96 10^3/uL (3.29-11.43) H 07/19/23 03:56 RBC 2.26 10^6/uL (3.85-5.65) L 07/19/23 03:56 Hgb 7.60 g/dL (11.27-16.99) L 07/19/23 07:26 Hct 22.4 % (36-47) L 07/19/23 07:26 MCV 89.4 fl (85-98) 07/19/23 03:56 MCH 29.6 pg (27-33) 07/19/23 03:56 MCHC 33.2 g/dL (30-55) 07/19/23 03:56 RDW 22.0 % (12.1-15.1) H 07/19/23 03:56 Plt Count 82 10^3/cmm (157-399) L 07/19/23 03:56 MPV 9.4 fL (7.4-10.4) 07/19/23 03:56 Neut % (Auto) 67.8 % 07/19/23 03:56 Lymph % (Auto) 10.5 % 07/19/23 03:56 Roberts % (Auto) 19.3 % 07/19/23 03:56 Eos % (Auto) 0.6 % 07/19/23 03:56 Baso % (Auto) 0.8 % 07/19/23 03:56 Neut # (Auto) 12.17 10^3/uL (1.8-7.7) H 07/19/23 03:56 Lymph # (Auto) 1.9 10^3/uL (0.8-4.8) 07/19/23 03:56 Roberts # (Auto) 3.5 10^3/uL (0.2-0.9) H 07/19/23 03:56 Eos # (Auto) 0.1 10^3/uL (0.0-0.8) 07/19/23 03:56 Baso # (Auto) 0.2 10^3/uL (0.0-0.1) H 07/19/23 03:56 Nucleated RBC % (auto) 0 % 07/19/23 03:56 Nucleated RBCs # 0.0 /100WBC 07/19/23 03:56 Differential Comment Yes 07/15/23 13:45 PT 21.40 SECONDS (12.1-14.9) H 07/18/23 04:02 INR 1.79 (0.8-1.2) H 07/18/23 04:02 Sodium 131 mmol/L (136-145) L 07/19/23 03:56 Potassium 3.3 mmol/L (3.5-5.1) L 07/19/23 03:56 Chloride 93 mmol/L (98-107) L 07/19/23 03:56 Carbon Dioxide 28 mmol/L (22-29) 07/19/23 03:56 Anion Gap 13.3 (5-19) 07/19/23 03:56 BUN 23 mg/dL (8-23) 07/19/23 03:56 Creatinine 0.8 mg/dL (0.5-0.9) 07/19/23 03:56 GFR Calculation 73.2 mL/min (90-130) L 07/19/23 03:56 Glucose 148 mg/dL (65-115) H 07/19/23 03:56 POC Glucose 221 mg/dL (70-110) H 07/16/23 09:54 Calculated Osmolality 278 mOsm/kg (285-295) L 07/19/23 03:56 Lactic Acid 6.6 mmol/L (0.5-2.2) H* 07/14/23 22:49 Lactic Acid (Sepsis) 5.8 mmol/L (0.5-2.2) H* 07/15/23 01:25 Calcium 7.9 mg/dL (8.5-10.5) L 07/19/23 03:56 Phosphorus 5.2 mg/dL (2.5-4.5) H 07/14/23 20:15 Magnesium 1.1 mg/dL (1.7-2.3) L 07/19/23 03:56 Iron 74 ug/dL (37-145) 07/19/23 03:56 TIBC 77.94002 mcg/dl 07/19/23 03:56 % Saturation 94.0 % (20-50) H 07/19/23 03:56 Unsat Iron Binding < 4 ug/dL (112-347) L 07/19/23 03:56 Total Bilirubin 6.6 mg/dL (0.15-1.2) H 07/19/23 03:56 AST 54 U/L (0-32) H 07/19/23 03:56 ALT 30 U/L (0-33) 07/19/23 03:56 Alkaline Phosphatase 55 U/L (35-105) 07/19/23 03:56 Ammonia 64 umol/L (11-51) H 07/14/23 20:15 Troponin T Baseline 23 ng/L (0-10) H 07/14/23 20:15 Troponin T 120 Minute 19.69 ng/L (0-10) H 07/14/23 21:49 Delta Troponin T -3.31 ABS# (0-10) L 07/14/23 21:49 Troponin T Hi Sens 6Hr 19.27 ng/L (0-10) H 07/15/23 02:05 Troponin T Hi Sens 6Hr Delta -3.73 ng/L (0-12) L 07/15/23 02:05 NT-Pro-B Natriuret Pep 676 pg/mL (0-125) H 07/14/23 20:15 Total Protein 4.8 g/dL (6.6-8.7) L 07/19/23 03:56 Albumin 3.8 g/dL (3.5-5.2) 07/19/23 03:56 Globulin 1.0 g/dL (1.3-4.6) L 07/19/23 03:56 Lipase 23 U/L (13-60) 07/16/23 05:02 Vitamin B12 649 pg/mL (232-1245) 07/19/23 03:56 Procalcitonin 0.24 ng/mL (0-0.5) 07/14/23 20:15 Urine Color Yellow (Yellow) 07/15/23 00:43 Urine Appearance Clear (CLEAR) 07/15/23 00:43 Urine pH 5 (5-7) 07/15/23 00:43 Ur Specific [place] 1.015 (1.005-1.030) 07/15/23 00:43 Urine Protein Trace (Negative) 07/15/23 00:43 Urine Glucose (UA) Norm (Normal) 07/15/23 00:43 Urine Ketones 1+ (Negative) H 07/15/23 00:43 Urine Blood Neg (Negative) 07/15/23 00:43 Urine Nitrate Negative (Negative) 07/15/23 00:43 Urine Bilirubin 1+ (Negative) H 07/15/23 00:43 Urine Urobilinogen Neg mg/dL (Negative) 07/15/23 00:43 Ur Leukocyte Esterase Negative (Negative) 07/15/23 00:43 Urine RBC None /hpf (0-2) 07/15/23 00:43 Urine WBC None /hpf (0-5) 07/15/23 00:43 Ur Squamous Epith Cells None /hpf (0-5) 07/15/23 00:43 Amorphous Sediment Not Reportable 07/15/23 00:43 Urine Bacteria Trace /hpf (NONE) 07/15/23 00:43 Urine Mucus Trace /hpf 07/15/23 00:43 Fluid Color Yellow 07/15/23 13:45 Fluid Appearance Clear 07/15/23 13:45 Fluid WBC 161 /uL 07/15/23 13:45 Fluid RBC 0 10^3/uL 07/15/23 13:45 Fld Polynuclear WBCs # 0.012 07/15/23 13:45 Fld Polynuclear WBCs % 7.400 % 07/15/23 13:45 Fl Mononucl WBCs #(Auto) 0.149 07/15/23 13:45 Fl Mononuclear % Auto 92.600 % 07/15/23 13:45 Fld Crystal Laterality Ascites 07/15/23 13:45 Fluid Total Protein 0.7 g/dL 07/15/23 13:45 Fluid Albumin 0.4 g/dL 07/15/23 13:45 Fluid Uric Acid 11 mg/dL 07/15/23 13:45 Ethyl Alcohol 246 mg/dL (0-10) H 07/15/23 02:05 Adenovirus (PCR) Not detected (NOT DETECT) 07/15/23 21:20 C. pneumoniae DNA (PCR) Not detected (NOT DETECT) 07/15/23 21:20 Coronavirus 229E (PCR) Not detected (NOT DETECT) 07/15/23 21:20 Hepatitis A IgM Ab Non-reactive (Nonreactive) 07/19/23 03:56 Hep Bs Antigen Non-reactive (Nonreactive) 07/19/23 03:56 Hep Bs Antibody < 3.5 (11.5-1000) L 07/19/23 03:56 Hep B Core Total Ab Non-reactive (Nonreactive) 07/19/23 03:56 Hepatitis C Antibody Reactive (Nonreactive) H 07/19/23 03:56 HIV 1&2 Ab & HIV 1 Ag Non-reactive (Non-Reactiv) 07/19/23 03:56 HIV 1&2 Antibody Non-reactive (Non-Reactiv) 07/19/23 03:56 Human Metapneumovir PCR Not detected (NOT DETECT) 07/15/23 21:20 Influenza A (H1) PCR Not detected (NOT DETECT) 07/15/23 21:20 Influ A (H1/09) PCR Not detected (NOT DETECT) 07/15/23 21:20 Influenza A (H3) PCR Not detected (NOT DETECT) 07/15/23 21:20 Influenza Type A (PCR) Not detected (NOT DETECT) 07/15/23 21:20 Influenza Type B (PCR) Not detected (NOT DETECT) 07/15/23 21:20 M. pneumoniae (PCR) Not detected (NOT DETECT) 07/15/23 21:20 Parainfluenza 1 (PCR) Not detected (NOT DETECT) 07/15/23 21:20 Parainfluenza 2 (PCR) Not detected (NOT DETECT) 07/15/23 21:20 Parainfluenza 3 (PCR) Not detected (NOT DETECT) 07/15/23 21:20 Parainfluenza 4 (PCR) Not detected (NOT DETECT) 07/15/23 21:20 RSV Type A (PCR) Not detected (NOT DETECT) 07/15/23 21:20 RSV Type B (PCR) Not detected (NOT DETECT) 07/15/23 21:20 Entero/Rhino (PCR) Not detected (NOT DETECT) 07/15/23 21:20 SARS-CoV-2 (PCR) Not detected (NOT DETECT) 07/15/23 21:20 MRSA (PCR) Not detected (NOT DETECTED) 07/16/23 21:10 Blood Type A Negative 07/18/23 22:15 Rho(D) Type Rh negative 07/18/23 22:15 Antibody Screen Negative 07/18/23 22:15 Crossmatch See Detail 07/18/23 22:15 Radiology Impressions Chest/Abdomen X-ray 07/19/23 11:09 IMPRESSION: Diffuse gaseous distension of the bowel which may be secondary to ileus or developing obstruction. Increased bilateral upper lobe interstitial opacities. Venous Duplex 07/19/23 12:44 IMPRESSION: No acute findings. Microbiology 07/15/23 13:45 Peritoneal Fluid Gram Stain - Final 07/15/23 13:45 Peritoneal Fluid Anaerobic Culture - Preliminary 07/15/23 13:45 Peritoneal Fluid Body Fluid Culture - Final 07/17/23 12:15 Blood Blood Culture - Preliminary NEGATIVE TO DATE 07/17/23 12:01 Blood Blood Culture - Preliminary NEGATIVE TO DATE 07/14/23 22:49 Blood Blood Culture - Preliminary NEGATIVE TO DATE 07/14/23 22:51 Blood Blood Culture - Preliminary NEGATIVE TO DATE Recent Clincial Data Last Vital Signs Temp 98.9 F 07/19/23 14:02 Pulse 104 H 07/19/23 14:38 Resp 22 H 07/19/23 14:30 BP 86/48 07/19/23 14:30 Pulse Ox 93 07/19/23 14:30 O2 Del Method Nasal Cannula 07/19/23 14:30 O2 Flow Rate 3 07/19/23 13:52 Vital Signs Temp Pulse Resp BP Pulse Ox O2 Del Method O2 Flow Rate 07/19/23 14:38 104 H 07/19/23 14:30 111 H 22 H 86/48 93 Nasal Cannula 07/19/23 14:02 98.9 F 107 H 19 H 98/45 94 07/19/23 14:00 98.8 F 104 H 17 105/57 96 Nasal Cannula 07/19/23 14:00 105 H 07/19/23 13:52 107 H 18 92 Nasal Cannula 3 07/19/23 13:30 110 H 17 132/66 94 Nasal Cannula 07/19/23 13:00 111 H 17 104/46 94 Nasal Cannula 07/19/23 12:30 112 H 23 H 112/58 88 L Nasal Cannula 3 07/19/23 12:00 115 H 25 H 124/76 95 Nasal Cannula 07/19/23 11:30 113 H 18 95/41 94 Nasal Cannula 07/19/23 11:00 115 H 18 126/61 90 Nasal Cannula 07/19/23 10:30 118 H 17 111/50 92 Nasal Cannula 3 07/19/23 10:00 118 H 25 H 107/51 94 Nasal Cannula 07/19/23 09:30 115 H 15 111/68 96 Nasal Cannula 07/19/23 09:06 114 H 07/19/23 09:00 114 H 17 97/78 95 Nasal Cannula 3 07/19/23 08:50 114 H 18 93 Oxymask 3 07/19/23 08:30 112 H 16 127/59 92 07/19/23 08:00 112 H 13 108/54 94 07/19/23 07:30 99.9 F H 117 H 10 L 114/55 93 07/19/23 07:00 121 H 15 123/65 95 07/19/23 06:30 111 H 10 L 130/61 95 Oxymask 07/19/23 06:00 99.4 F 107 H 12 97/62 97 Nasal Cannula 07/19/23 05:50 106 H 07/19/23 05:30 106 H 14 113/57 96 07/19/23 05:00 103 H 9 L 118/52 97 07/19/23 04:46 99.4 F 112 H 12 130/61 97 07/19/23 04:42 99 F 102 H 20 H 125/58 97 07/19/23 04:30 99 F 104 H 16 107/43 98 Nasal Cannula 3 07/19/23 04:30 98.6 F 108 H 17 107/54 100 07/19/23 04:00 106 H 15 108/56 95 07/19/23 03:30 107 H 14 61/40 94 07/19/23 03:00 104 H 10 L 120/77 95 Intake & Output/Weight 07/17/23 07/18/23 07/19/23 07/20/23 06:59 06:59 06:59 07:59 Intake Total 2580.333 / 2580.333 2356.925 / 2356.925 2087.75 / 2087.75 1250.542 / 1250.542 Output Total 875 / 875 1325 / 1325 1974 / 1974 Balance 1705.333 / 9098.601 4303.925 / 1031.925 112.75 / 112.75 1250.542 / 1250.542 Weight 75.41 kg 69.853 kg 68.549 kg Vitals Last Vital Signs Temp 98.9 F 07/19/23 14:02 Pulse 104 H 07/19/23 14:38 Resp 22 H 07/19/23 14:30 BP 86/48 07/19/23 14:30 Pulse Ox 93 07/19/23 14:30 O2 Del Method Nasal Cannula 07/19/23 14:30 O2 Flow Rate 3 07/19/23 13:52 TS Medications Medications Albuterol/Ipratropium (Ipratropium-Albuterol 3 Ml Neb) 3 ml INHALATION Q4H PRN PRN Reason: SHORTNESS OF BREATH Budesonide (Budesonide 0.5 Mg/2 Ml Neb) 0.5 mg INHALATION BID.RESPIRATORY [facility] Last Admin: 07/19/23 11:21 Dose: Not Given Docusate Sodium (Docusate Sodium 100 Mg Capsule) 100 mg PO BID PENNY Last Admin: 07/19/23 10:16 Dose: 100 mg Folic Acid (Folic Acid 1 Mg Tablet) 1 mg PO DAILY [facility] Last Admin: 07/19/23 10:16 Dose: 1 mg Dextrose (D10w) 250 mls @ 1,000 mls/hr IV PRN PRN PRN Reason: HYPOGLYCEMIA Albumin Human (Albumin) 25 g in 100 mls @ 60 mls/hr IV Q8H [facility] Last Admin: 07/19/23 14:30 Dose: 60 mls/hr Meropenem 1,000 mg/ Sodium (Chloride) 50 mls @ 100 mls/hr IV Q8H [facility]; Protocol Last Infusion: 07/19/23 10:46 Dose: Infused Dextrose (D10w) 125 mls @ 750 mls/hr IV PRN PRN PRN Reason: HYPOGLYCEMIA Last Infusion: 07/15/23 15:50 Dose: Infused norepinephrine (Levophed) 4 mg in 250 mls @ 0 mls/hr IV .Q0M PENNY; Protocol Last Titration: 07/19/23 13:19 Dose: 0 mcg/min, 0 mls/hr Ipratropium [place] (Ipratropium 0.5 Mg/2.5 Ml Neb) 0.5 mg INHALATION Q6H.RESP [facility]ENNY Last Admin: 07/19/23 13:52 Dose: 0.5 mg Lanolin (Lanolin Oint 7 Gm) 1 applic TOPICAL PRN PRN PRN Reason: DRYNESS Last Admin: 07/19/23 14:10 Dose: 1 applic Levalbuterol HCl (Levalbuterol 0.63 Mg/3 Ml Neb) 0.63 mg INHALATION Q6H.RESP [facility] Last Admin: 07/19/23 13:52 Dose: 0.63 mg Lorazepam (Lorazepam 2 Mg Tablet) 2 mg PO Q4H PRN; Protocol PRN Reason: WITHDRAWAL Lorazepam (Lorazepam 2 Mg/Ml Inj 10 Ml Mdv) 2 mg IM Q4H PRN; Protocol PRN Reason: ALCOHOL WITHDRAWAL Lorazepam (Lorazepam 2 Mg/Ml Inj 10 Ml Mdv) 1 mg IVP Q4H PRN; Protocol PRN Reason: WITHDRAWAL Midodrine (Midodrine 5 Mg Tablet) 10 mg PO TID [facility] Last Admin: 07/19/23 14:30 Dose: 10 mg Morphine Sulfate (Morphine 4 Mg/Ml Sdv 1 Ml) 1 mg IVP Q4H PRN PRN Reason: SEVERE PAIN Last Admin: 07/19/23 00:02 Dose: 1 mg Multivitamins Therapeutic (Multivitamin Therapeutic Tablet) 1 tab PO DAILY [facility] Last Admin: 07/19/23 10:16 Dose: 1 tab Nicotine (Nicotine 21 Mg Patch) 1 patch TRANSDERMA DAILY [facility] Last Admin: 07/19/23 12:51 Dose: 1 patch Ondansetron HCl (Ondansetron 2 Mg/Ml Sdv 2 Ml) 4 mg IVP Q6H PRN PRN Reason: NAUSEA AND VOMITING Last Admin: 07/15/23 04:04 Dose: 4 mg Oxycodone HCl (Oxycodone 5 Mg Ir Tab/Cap) 5 mg PO Q6H PRN PRN Reason: MODERATE PAIN Last Admin: 07/18/23 21:38 Dose: 5 mg Pantoprazole Sodium (Pantoprazole 40 Mg Sdv) 40 mg IVP Q12H [facility] Last Admin: 07/19/23 09:12 Dose: 40 mg Rifaximin (Rifaximin 550 Mg Tablet) 550 mg PO BID [facility]; Protocol Last Admin: 07/19/23 10:17 Dose: 550 mg Sodium Chloride (Sodium Chloride 0.9% 100 Ml Bag) 50 ml IV PRN PRN PRN Reason: Blood transfusion prime and flush Stop: 07/19/23 20:56 Sodium Chloride (Sodium Chloride 0.9% 100 Ml Bag) 50 ml IV PRN PRN PRN Reason: Blood transfusion prime and flush Stop: 07/20/23 03:21 Thiamine Mononitrate (Thiamine 100 Mg Tablet) 100 mg PO DAILY [facility] Last Admin: 07/19/23 10:16 Dose: 100 mg Discontinued Medications Albuterol Sulfate (Albuterol 2.5 Mg/3 Ml Neb) 2.5 mg INHALATION ONCE ONE Stop: 07/15/23 03:03 Last Admin: 07/15/23 03:59 Dose: Not Given Albuterol/Ipratropium (Ipratropium-Albuterol 3 Ml Neb) 3 ml INHALATION Q6H [facility] Last Admin: 07/16/23 20:24 Dose: 3 ml Albuterol/Ipratropium (Ipratropium-Albuterol 3 Ml Neb) 3 ml INHALATION Q6H.RESP [facility] Last Admin: 07/19/23 09:00 Dose: 3 ml Calcium Gluconate (Calcium Gluconate 0.1 Gm/Ml 10% Sdv 10ml) 1 gm IVP ONCE ONE Stop: 07/14/23 21:26 Last Admin: 07/14/23 21:40 Dose: 1 gm Citric Acid/Sodium Citrate (Citric Acid-Sodium Citrate 30 Ml Udc) 60 ml PO ONCE ONE Stop: 07/15/23 21:37 Last Admin: 07/15/23 21:58 Dose: 60 ml Dextrose (Dextrose 25% (Ped. Syringe) 10 Ml) 50 ml IV ONCE PENNY Furosemide (Furosemide 10 Mg/Ml Sdv 10ml) 60 mg IVP ONCE ONE Stop: 07/15/23 21:36 Last Admin: 07/15/23 21:57 Dose: 60 mg Furosemide (Furosemide 10 Mg/Ml Sdv 10ml) 60 mg IVP ONCE ONE Stop: 07/16/23 15:26 Last Admin: 07/16/23 16:07 Dose: 60 mg Furosemide (Furosemide 10 Mg/Ml Sdv 10ml) 60 mg IVP ONCE ONE Stop: 07/17/23 08:11 Last Admin: 07/17/23 16:17 Dose: Not Given Furosemide (Furosemide 10 Mg/Ml Sdv 10ml) 60 mg IVP ONCE ONE Stop: 07/17/23 11:31 Last Admin: 07/17/23 11:33 Dose: 60 mg Furosemide (Furosemide 10 Mg/Ml Sdv 10ml) 60 mg IVP ONCE ONE Stop: 07/18/23 07:36 Last Admin: 07/18/23 10:41 Dose: 60 mg Furosemide (Furosemide 10 Mg/Ml Sdv 10ml) 60 mg IVP ONCE ONE Stop: 07/18/23 10:46 Last Admin: 07/18/23 10:47 Dose: Not Given Furosemide (Furosemide 10 Mg/Ml Sdv 4ml) 40 mg IVP ONCE ONE Stop: 07/18/23 19:18 Last Admin: 07/18/23 19:38 Dose: 40 mg norepinephrine (Levophed) 4 mg in 250 mls @ 0 mls/hr IV .Q0M [facility]; Protocol Last Titration: 07/16/23 18:50 Dose: Infused norepinephrine (Levophed) 4 mg in 250 mls @ 0 mls/hr IV .Q0M [facility]; Protocol Ceftriaxone Sodium 1,000 mg/ (Sodium Chloride) 50 mls @ 100 mls/hr IV Q24H [facility]; Protocol Last Infusion: 07/15/23 04:24 Dose: Infused Insulin Human Regular 10 unit/ (N/A) 0.1 mls @ 0 mls/hr IVP ONCE ONE Stop: 07/15/23 02:55 Last Infusion: 07/15/23 04:25 Dose: Infused Sodium Bicarbonate 150 meq/ (Dextrose) 1,150 mls @ 50 mls/hr IV .Q23H [facility] Last Admin: 07/15/23 04:23 Dose: Not Given Dextrose (D10w) 250 mls @ 1,000 mls/hr IV ONCE ONE Stop: 07/15/23 03:44 Last Infusion: 07/15/23 04:24 Dose: Infused Dextrose/Sodium Chloride (Dextrose 5%-Sod Chloride 0.9%) Confirm Administered Dose 1,000 mls @ as directed .ROUTE .STK-MED ONE Stop: 07/15/23 03:48 Last Infusion: 07/15/23 11:04 Dose: 0 mls/hr Insulin Human Regular 10 unit/ (N/A) 0.1 mls @ 0 mls/hr IVP ONCE ONE Stop: 07/15/23 05:47 Last Infusion: 07/15/23 11:05 Dose: Infused Dextrose (D10w) 125 mls @ 750 mls/hr IV PRN PRN PRN Reason: HYPOGLYCEMIA Dextrose (D10w) 125 mls @ 750 mls/hr IV ONCE STA Stop: 07/15/23 05:58 Last Infusion: 07/15/23 11:04 Dose: Infused Calcium Gluconate/Sodium Chloride (Calcium Gluconate 0.9% Nacl) 1 gm in 50 mls @ 50 mls/hr IV ONCE ONE Stop: 07/15/23 06:50 Last Infusion: 07/15/23 11:04 Dose: Infused Sodium Bicarbonate 150 meq/ (Sodium Chloride) 1,150 mls @ 150 mls/hr IV .[id number] [facility] Last Infusion: 07/15/23 11:05 Dose: 0 mls/hr Vancomycin HCl / Sodium (Chloride) 250 mls @ 0 mls/hr [id number] PROTOCOL PENNY; Protocol Vancomycin HCl 750 mg/ Sodium (Chloride) 250 mls @ 250 mls/hr IV Q48H [facility] Last Infusion: 07/19/23 09:15 Dose: Infused Octreotide Acetate 500 mcg/ (Sodium Chloride) 101 mls @ 10.1 mls/hr IV .Q10H [facility] Last Admin: 07/18/23 07:51 Dose: Not Given Sodium Bicarbonate 150 meq/ (Dextrose) 1,150 mls @ 100 mls/hr IV .[id number] [facility] Last Infusion: 07/16/23 18:50 Dose: Infused Insulin Human Regular 10 unit/ (N/A) 0.1 mls @ 0 mls/hr IVP ONCE ONE Stop: 07/15/23 15:01 Last Admin: 07/15/23 15:39 Dose: 125 mls/hr Sodium Chloride (Sodium Chloride 0.9%) 1,000 mls @ 75 mls/hr IV .[id number] [facility] Last Infusion: 07/17/23 08:31 Dose: Infused Sodium Chloride (Sodium Chloride 0.9% (100 Ml)) Confirm Administered Dose 100 mls @ as directed .ROUTE .STK-MED ONE Stop: 07/17/23 01:39 Last Infusion: 07/17/23 01:50 Dose: Infused Octreotide Acetate 500 mcg/ (Sodium Chloride) 101 mls @ 10.1 mls/hr IV .Q10H [facility] Last Infusion: 07/19/23 12:24 Dose: 0 mcg/hr, 0 mls/hr Tranexamic Acid (Tranexamic Acid) 1,000 mg in 100 mls @ 600 mls/hr IV ONCE ONE Stop: 07/19/23 09:55 Last Infusion: 07/19/23 10:32 Dose: Infused Tranexamic Acid (Tranexamic Acid) 1,000 mg in 100 mls @ 600 mls/hr IV ONCE ONE Stop: 07/19/23 10:59 Last Infusion: 07/19/23 11:14 Dose: Infused Magnesium Sulfate (Magnesium Sulfate Premix) 2 gm in 50 mls @ 50 mls/hr IV ONCE ONE Stop: 07/19/23 12:02 Last Infusion: 07/19/23 12:36 Dose: Infused Insulin Human Regular (Insulin Regular-Human 100 Units/1 Ml) 10 unit IVP ONCE ONE Stop: 07/14/23 21:26 Last Admin: 07/14/23 21:41 Dose: 10 unit Insulin Human Regular (Insulin Regular-Human 100 Units/1 Ml) Confirm Ad ministered Dose 10 unit .ROUTE .STK-MED ONE Stop: 07/15/23 03:44 Lorazepam (Lorazepam 2 Mg Tablet) 2 mg PO Q4H PRN; Protocol PRN Reason: WITHDRAWAL Lorazepam (Lorazepam 2 Mg/Ml Inj 10 Ml Mdv) 2 mg IVP PRN PRN; Protocol PRN Reason: WITHDRAWAL Last Admin: 07/15/23 05:12 Dose: 2 mg Morphine Sulfate (Morphine 4 Mg/Ml Sdv 1 Ml) 2 mg IVP ONCE ONE Stop: 07/15/23 01:39 Last Admin: 07/15/23 01:59 Dose: 2 mg Nicotine (Nicotine 21 Mg Patch) 1 patch TRANSDERMA DAILY [facility] Pantoprazole Sodium (Pantoprazole Dr 40 Mg Tablet) 40 mg PO DAILY [facility] Pantoprazole Sodium (Pantoprazole Dr 40 Mg Tablet) 40 mg PO BID [facility] Potassium Chloride (Potassium Chloride Er 20 Meq Tablet) 40 meq PO ONCE ONE Stop: 07/19/23 11:04 Last Admin: 07/19/23 11:32 Dose: 40 meq Pregabalin (Pregabalin 25 Mg Capsule) 25 mg PO DAILY [facility] Pregabalin (Pregabalin 25 Mg Capsule) 25 mg PO DAILY [facility] Last Admin: 07/16/23 18:52 Dose: Not Given Pregabalin (Pregabalin 25 Mg Capsule) 25 mg PO DAILY [facility] Last Admin: 07/19/23 10:16 Dose: 25 mg Sodium Bicarbonate (Sodium Bicarbonate 8.4% 1 Meq/Ml 50ml Syr) Confirm Administered Dose 150 meq .ROUTE .STK-MED ONE Stop: 07/15/23 03:47 Last Admin: 07/15/23 04:06 Dose: 150 meq Sodium Chloride (Sodium Chloride 0.9% 100 Ml Bag) 50 ml IV PRN PRN PRN Reason: Blood transfusion prime and flush Stop: 07/15/23 21:25 Sodium Chloride (Sodium Chloride 0.9% 100 Ml Bag) 50 ml IV PRN PRN PRN Reason: Blood transfusion prime and flush Stop: 07/17/23 11:21 Last Admin: 07/16/23 15:13 Dose: 50 ml Sodium Polystyrene Sulfonate (Sodium Polystyrene Sulfonate 15 Gm/60 Ml Btl) 15 gm PO ONCE ONE Stop: 07/15/23 02:55 Last Admin: 07/15/23 04:20 Dose: 15 gm Sodium Polystyrene Sulfonate (Sodium Polystyrene Sulfonate 15 Gm/60 Ml Btl) 15 gm PO ONCE ONE Stop: 07/15/23 14:49 Last Admin: 07/15/23 15:39 Dose: 15 gm Sodium Polystyrene Sulfonate (Sodium Polystyrene Sulfonate 15 Gm/60 Ml Btl) 15 gm PO ONCE ONE Stop: 07/15/23 20:50 Last Admin: 07/15/23 20:58 Dose: 15 gm Thiamine Mononitrate (Thiamine 100 Mg Tablet) 100 mg PO DAILY [facility] Thrombin (Thrombin 5,000 Unit Sdv) 10,000 unit .ROUTE .STK-MED ONE Stop: 07/19/23 09:43 Thrombin (Thrombin 5,000 Unit Sdv) 10,000 unit XX ONCE ONE Stop: 07/19/23 09:49 Last Admin: 07/19/23 09:52 Dose: 10,000 unit Allergies codeine Allergy (Verified 06/03/23 09:49) ALGY-Hives Home Medications acetaminophen 500 mg tablet (Tylenol Extra Strength) 1,000 mg PO Q6H PRN Pain 05/18/20 [History Confirmed 07/15/23] thiamine mononitrate (vit B1) 100 mg tablet (Vitamin B-1 (mononitrate)) 100 mg PO DAILY #30 tabs 10/31/21 [Rx Confirmed 07/15/23] albuterol sulfate 90 mcg/actuation aerosol inhaler (Ventolin HFA) 2 puff inhalation Q6H PRN Shortness Of Breath Or Wheezing 05/20/23 [History Confirmed 07/15/23] fluticasone 250 mcg-salmeterol 50 mcg/dose blistr powdr for inhalation (Advair Diskus) 1 inh inhalation BID 05/20/23 [History Confirmed 07/15/23] furosemide 20 mg tablet 20 mg PO DAILY 05/20/23 [History Confirmed 07/15/23] magnesium 250 mg tablet 250 mg PO DAILY 05/20/23 [History Confirmed 07/15/23] multivitamin 1 tab PO DAILY 05/20/23 [History Confirmed 07/15/23] ondansetron 4 mg disintegrating tablet 4 mg PO Q8H PRN Nausea And Vomiting 05/20/23 [History Confirmed 07/15/23] pantoprazole 40 mg tablet,delayed release 40 mg PO BID 05/20/23 [History Confirmed 07/15/23] potassium chloride 20 mEq tablet,extended release(part/cryst) 20 meq PO DAILY 05/20/23 [History Confirmed 07/15/23] rifaximin 550 mg tablet 550 mg PO BID #60 tabs 05/20/23 [Rx Confirmed 07/15/23] tiotropium bromide 18 mcg capsule with inhalation device (Spiriva with HandiHaler) 1 cap inhalation DAILY 05/20/23 [History Confirmed 07/15/23] sulfamethoxazole 800 mg-trimethoprim 160 mg tablet (Bactrim DS) 1 tab PO DAILY #30 tabs 06/03/23 [Rx Confirmed 07/15/23] spironolactone 100 mg tablet 100 mg PO DAILY #90 tabs 06/23/23 [Rx Confirmed 07/15/23] pregabalin 25 mg capsule (Lyrica) 25 mg PO DAILY #30 caps 06/27/23 [Rx Confirmed 07/15/23] Discharge Plan Discharge Patient Disposition: Home Condition: Stable Prescriptions: No Action sulfamethoxazole-trimethoprim [Bactrim DS] 800-160 mg tablet 1 tab PO DAILY Qty: 30 2RF thiamine mononitrate (vit B1) [Vitamin B-1 (mononitrate)] 100 mg tablet 100 mg PO DAILY Qty: 30 4RF rifaximin 550 mg tablet 550 mg PO BID Qty: 60 5RF spironolactone 100 mg tablet 100 mg PO DAILY Qty: 90 1RF pregabalin [Lyrica] 25 mg capsule 25 mg PO DAILY Qty: 30 0RF Rx Instructions: Take one capsule daily at bedtime. acetaminophen [Tylenol Extra Strength] 500 mg Tablet 1,000 mg PO Q6H PRN (Reason: Pain) multivitamin Tablet 1 tab PO DAILY magnesium 250 mg Tablet 250 mg PO DAILY fluticasone propion-salmeterol [Advair Diskus] 250-50 mcg/dose blister with device 1 inh inhalation BID Rx Instructions: USE ONE inhalation TWICE DAILY potassium chloride 20 mEq tablet,ER particles/crystals 20 meq PO DAILY Rx Instructions: TAKE 1 TABLET BY MOUTH EVERY DAY WITH LASIX. pantoprazole 40 mg tablet,delayed release (DR/EC) 40 mg PO BID Rx Instructions: TAKE 1 TABLET BY MOUTH TWICE DAILY furosemide 20 mg tablet 20 mg PO DAILY Rx Instructions: TAKE 1 TABLET BY MOUTH EVERY DAY albuterol sulfate [Ventolin HFA] 90 mcg/actuation HFA aerosol inhaler 2 puff inhalation Q6H PRN (Reason: Shortness Of Breath Or Wheezing) Rx Instructions: INHALE TWO PUFFS EVERY 6 HOURS NEEDED FOR SHORTNESS OF BREATH or wheezing ondansetron 4 mg tablet,disintegrating 4 mg PO Q8H PRN (Reason: Nausea And Vomiting) Rx Instructions: DISSOLVE ONE TABLET BY MOUTH EVERY 8 HOURS NEEDED FOR NAUSEA AND VOMITING tiotropium bromide [Spiriva with HandiHaler] 18 mcg capsule, w/inhalation device 1 cap inhalation DAILY Rx Instructions: inhale contents of ONE capsule using device every morning Referrals: Trenton Alas DO [Primary Care Provider] - Patient Instructions: Opioid Safety Transfer Attestations Time Spent in Transfer Care: critical care time Critical Care Time (min): 70 Specific Discharge Activities: educating patient, educating and/or supporting family/caregiver, discussing with pcp/other providers, documenting/other paperwork and evaluating patient/reviewing data Status at Transfer: Cognitive status at transfer: mildly impaired cognition ; Behavioral status at transfer: cooperative ; Functional status at transfer: other assisted ambulation ; Overall status at transfer: patient is not back to baseline Quality Metrics Clinical Quality Measures [ No reported AMI, CVA or VTE this stay] Coding Level of Care Code Critical Care >/= 30 minutes Critical care time (in minutes): 70 The high probability of a clinically significant, sudden or life threatening deterioration, as referenced in this documentation, required my full and direct attention, intervention and personal management. The critical care time shown is in addition to time spent performing any reported separately billable procedures and includes the following: [x] Data and vital sign review and interpretation [x ] Patient assessment, examination and intervention [x] Medication orders and management [x] Patient/Family updates as able [x] Care Coordination and Documentation. Diagnoses Acute hyponatremia E87.1 Hyperkalemia E87.5 Chronic alcohol use Z72.89 Acute hypotension I95.9 Thrombocytopenia D69.6 Hyperammonemia E72.20 Nausea and vomiting, unspecified vomiting type R11.2 Vomiting type: unspecified Alcoholic cirrhosis of liver with ascites K70.31 Ascites presence: with ascites Hepatic cirrhosis type: alcoholic cirrhosis Rectal prolapse K62.3 Bleeding per rectum K62.5 Hemorrhoids K64.9 Acute renal failure N17.9 Acute renal failure type: unspecified Acute anemia D64.9 COPD (chronic obstructive pulmonary disease) J44.9 COPD type: chronic bronchitis
--- NOTE | 2023-07-19 15:59 | PC.NURSE ---
Report called to MARLYN Soliman at [place], [place], CCU bed 49.
--- NOTE | 2023-07-19 16:00 | PC.NURSE ---
Family and patient updated on transfer status.
[2023-07-19] MEDS: oxyCODONE 5 mg IR Tab/Cap PO (16:16)
--- NOTE | 2023-07-19 16:20 | PC.NURSE ---
Patient belongings, a black purse and its contents, hair brush, and cellphone home with daughter, Alexus.
--- NOTE | 2023-07-19 16:41 | PC.NURSE ---
Patient in care of [facility] ambulance at 1640, in route to [facility] [place], daughter at bedside with all belongings to follow ambulance with other family members in personal vehicle. Patient AOX4, see documented stable vitals.
--- NOTE | 2023-07-19 18:42 | PC.NURSE ---
Per Dr. Horne request, CT results faxed to [facility] CCU. Disk sent with patient, however it is unknown to nurse if CT results were available at the time disk was made. Verified transmission of fax.
[2023-07-21 15:05] LABS: HEP C RNA Viral Load Quant <1.18 NOT DETECTED Log IU/mL (NOT DETECTED); HEP C RNA Viral Load Quant <15 NOT DETECTED IU/mL (NOT DETECTED)
== END 2023-07-19 16:45 | disposition short-term general hospital (02) | DRG 441 ==
LOC: ER 21:57 → ICU 22:02
PROVIDERS: Hospitalist; Internal Medicine; Admitting Provider Student in an Organized Health Care Education/Training Program; Emergency Provider Emergency Medicine; PCP Family Medicine; Visit Provider Student in an Organized Health Care Education/Training Program
DX: K76.7 Hepatorenal syndrome (principal); J18.9 Pneumonia, unspecified organism; N17.9 Acute kidney failure, unspecified; R57.9 Shock, unspecified; E72.20 Disorder of urea cycle metabolism, unspecified; E87.1 Hypo-osmolality and hyponatremia; E87.20 Acidosis, unspecified; J44.0 Chronic obstructive pulmonary disease with (acute) lower respiratory infection; K92.1 Melena; K76.6 Portal hypertension; E87.5 Hyperkalemia; D69.6 Thrombocytopenia, unspecified; K70.31 Alcoholic cirrhosis of liver with ascites; F10.20 Alcohol dependence, uncomplicated; D64.9 Anemia, unspecified; J44.9 Chronic obstructive pulmonary disease, unspecified; Z72.0 Tobacco use; K62.3 Rectal prolapse; K64.9 Unspecified hemorrhoids; Y90.8 Blood alcohol level of 240 mg/100 ml or more
CPT/HCPCS: 36415; 36416; 36430; 36573; 36592; 49083; 51702; 51798; 71045; 71250; 74022; 74176; 80048; 80053; 80307; 80503; 81001; 82042; 82140; 82607; 82962; 83540; 83550; 83605; 83690; 83735; 83880; 84100; 84145; 84157; 84484; 84560; 85014; 85018; 85025; 85610; 86705; 86706; 86709; 86803; 86850; 86900; 86920; 86927; 87040; 87070; 87075; 87205; 87340; 87486; 87522; 87581; 87633; 87641; 87806; 89050; 93005; 93306; 93971; 94640; 96365; 96375; 96376; 97110; 97162; 97530; 99285; C1751; C9113; J0610; J0612; J0696; J1815; J1940; J2060; J2185; J2270; J2354; J2405; J3370; J3475; J7030; J7042; J7050; J7070; J7614; J7644; J7799; P9016; P9017; P9040; P9046; Q3014

== ENCOUNTER → 2023-07-31 10:40 | Outpatient (BNVA) | payer MEDICAID, SELFPAY | PROVIDERS: PCP Family Medicine; Visit Provider Family Medicine | DX: D69.6 Thrombocytopenia, unspecified (principal); K70.31 Alcoholic cirrhosis of liver with ascites; K62.3 Rectal prolapse; R32 Unspecified urinary incontinence | CPT/HCPCS: 80053; 85025 ==

== ENCOUNTER 2023-09-01 15:45 | Emergency (ER) | payer MEDICAID, SELFPAY ==
[2023-09-01 15:51] VITALS: BP 141/65; PULSE 126; RESP 20; TEMP 37; O2SAT 96; BMI 26.4
--- NOTE | 2023-09-01 15:54 | W.ED.GENADLT ---
HPI - General Adult General: Chief complaint: Abdominal Pain Stated complaint: Distended Abd Time Seen by Provider: 09/01/23 15:53 Source: patient Mode of arrival: ambulatory History of Present Illness: 63-year-old female with a history of alcoholic liver cirrhosis presents the abdomen with severe abdominal distention. She has had therapeutic paracentesis in the past she is having some shortness of breath abdominal discomfort and nausea from this. She had tried to contact her primary care doctor to make arrangements for therapeutic paracentesis but was unable to get a hold of them. She has some mild abdominal ache and discomfort. Onset (ago): day(s) Location: abdomen Severity: moderate Quality: aching Pain Consistency: constant Relieving factors: none Exacerbating factors: none Associated symptoms: Reports malaise and nausea; Deny chest pain, confusion, cough, diaphoresis, decreased appetite, dyspnea, fevers/chills, headache(s), rash, palpitations, seizures, short of breath, syncope, vomiting or weakness Review of Systems Const: Reports: malaise; Denies: fever(s), chills or diaphoresis Card: Denies: chest pain, palpitations or syncope Resp: Denies: dyspnea GI: Reports: nausea; Denies: abdominal pain or vomiting : Denies: dysuria, urinary frequency or urinary urgency Musc: Denies: neck pain or back pain Skin/Breast: Denies: rash Neuro: Denies: headache(s) or confusion PFSH ED PFSH: Medical History COPD (chronic obstructive pulmonary disease) Anemia Liver cirrhosis Alcoholism Hepatitis C COPD (chronic obstructive pulmonary disease) Surgical History History of hysterectomy Family History Mother Lung cancer Father Hyperthermia Social History Smoking and tobacco/nicotine status: current every day tobacco/nicotine user cigarettes Alcohol intake: current Alcohol intake frequency: few times a week Substance/Drug Use: current Substance/Drug use frequency: daily Female Reproductive History: Spontaneous abortions: No Physical Exam Const: COMMON NORMALS: no acute distress GENERAL APPEARANCE: cooperative and comfortable ORIENTATION/CONSCIOUSNESS: Yes awake, Yes oriented to person, Yes oriented to place and Yes oriented to time HENMT: COMMON NORMALS: normocephalic, atraumatic and hearing grossly normal bilaterally HEAD & SCALP: normocephalic and atraumatic Resp: COMMON NORMALS: normal respiratory effort, No retractions, No use of accessory muscles and clear to auscultation bilaterally AUSCULTATION: clear to auscultation bilaterally Cardio: COMMON NORMALS: regular rate, regular rhythm and No murmurs present (Cardio) RATE: regular rate RHYTHM: regular rhythm GI: COMMON NORMALS: Soft to palpation and No hepatosplenomegaly present AUSCULTATION: Yes normoactive bowel sounds PALPATION: Yes Soft to palpation, No Tenderness to palpation present (GI), No Guarding due to palpation present (GI) and Yes No hepatosplenomegaly present Extremity: COMMON NORMALS: normal to inspection, capillary refill normal, no clubbing, cyanosis or edema, no calf tenderness and no pedal edema Neuro: SENSORIUM/ORIENTATION: Yes oriented to person, Yes oriented to place and Yes oriented to time Skin: COMMON NORMALS: no rashes or lesions noted GENERAL SKIN EXAM: no rashes or lesions noted Course Vital Signs: Vital signs: Vital Signs Temperature 98.6 F 09/01/23 15:51 Pulse Rate 125 H 09/01/23 18:09 Respiratory Rate 20 H 09/01/23 18:09 Blood Pressure 118/56 09/01/23 18:09 Pulse Oximetry 99 09/01/23 18:09 Oxygen Delivery Me thod Room Air 09/01/23 16:54 MDM - General Adult Medical Decision Making Patient improved after 3 L removed by paracentesis. Her ammonia level and lactic acid are. She is not having any altered mental status she is having some abdominal pain I encouraged her to allow us to admit her or at very least place her on observation. Additionally she does have some hyponatremia however this is been chronic for her. Despite these recommendations she still wishes to go home. Her family at the bedside encouraged her to stay as well but she declined. Patient is advised that if she changes her mind she is welcome to return at any time and we can reevaluate and retest. Advised her very concerned about her pancreatitis in particular worsening if she eats and drinks. Encouraged her to eat just follow a clear liquid diet for the next 24 to 48 hours then advance but if there are changes in symptoms or if pain is uncontrolled she should return for reevaluation. Patient expresses understanding. She is awake and alert no altered mental status despite her ammonia level being high at this time. Medical Records I reviewed the patient's medical records. Lab Data I reviewed the patient's lab results. 09/01/23 15:56 09/01/23 15:56 Radiology Impressions Chest X-Ray 09/01/23 16:02 IMPRESSION: 1. Redemonstrated right upper lobe perihilar mass measuring 2.5 x 2.4 cm on today's examination, similar to prior comparative cross-sectional examination on 07/19/2023. If there is concern for possible intrathoracic disease advancement, recommend cross-sectional evaluation. 2. Diffuse increase in interstitial markings, nonspecific. 3. Additional findings as above. Laboratory Results WBC 10.43 10^3/uL (3.29-11.43) 09/01/23 15:56 RBC 3.06 10^6/uL (3.85-5.65) L 09/01/23 15:56 Hgb 9.90 g/dL (11.27-16.99) L 09/01/23 15:56 Hct 29.4 % (36-47) L 09/01/23 15:56 MCV 96.1 fl (85-98) 09/01/23 15:56 MCH 32.4 pg (27-33) 09/01/23 15:56 MCHC 33.7 g/dL (30-55) 09/01/23 15:56 RDW 21.4 % (12.1-15.1) H 09/01/23 15:56 Plt Count 190 10^3/cmm (157-399) 09/01/23 15:56 MPV 9.2 fL (7.4-10.4) 09/01/23 15:56 Neut % (Auto) 64.2 % 09/01/23 15:56 Lymph % (Auto) 21.1 % 09/01/23 15:56 Mitchell % (Auto) 12.8 % 09/01/23 15:56 Eos % (Auto) 0.4 % 09/01/23 15:56 Baso % (Auto) 0.9 % 09/01/23 15:56 Neut # (Auto) 6.71 10^3/uL (1.8-7.7) 09/01/23 15:56 Lymph # (Auto) 2.2 10^3/uL (0.8-4.8) 09/01/23 15:56 Mitchell # (Auto) 1.3 10^3/uL (0.2-0.9) H 09/01/23 15:56 Eos # (Auto) 0.0 10^3/uL (0.0-0.8) 09/01/23 15:56 Baso # (Auto) 0.1 10^3/uL (0.0-0.1) 09/01/23 15:56 Nucleated RBC % (auto) 0 % 09/01/23 15:56 Nucleated RBCs # 0.0 /100WBC 09/01/23 15:56 PT 15.10 SECONDS (12.1-14.9) H 09/01/23 15:56 INR 1.15 (0.8-1.2) 09/01/23 15:56 APTT 37.3 SECONDS (23.9-36.7) H 09/01/23 15:56 Sodium 128 mmol/L (136-145) L 09/01/23 15:56 Potassium 4.7 mmol/L (3.5-5.1) 09/01/23 15:56 Chloride 98 mmol/L (98-107) 09/01/23 15:56 Carbon Dioxide 16 mmol/L (22-29) L 09/01/23 15:56 Anion Gap 18.7 (5-19) 09/01/23 15:56 BUN 17 mg/dL (8-23) 09/01/23 15:56 Creatinine 1.0 mg/dL (0.5-0.9) H 09/01/23 15:56 GFR Calculation 56.4 mL/min (90-130) L 09/01/23 15:56 Glucose 133 mg/dL (65-115) H 09/01/23 15:56 Calculated Osmolality 269 mOsm/kg (285-295) L 09/01/23 15:56 Calcium 9.0 mg/dL (8.5-10.5) 09/01/23 15:56 Total Bilirubin 1.3 mg/dL (0.15-1.2) H 09/01/23 15:56 AST 51 U/L (0-32) H 09/01/23 15:56 ALT 24 U/L (0-33) 09/01/23 15:56 Alkaline Phosphatase 151 U/L (35-105) H 09/01/23 15:56 Ammonia 97 umol/L (11-51) H 09/01/23 15:56 Total Protein 7.2 g/dL (6.6-8.7) 09/01/23 15:56 Albumin 3.1 g/dL (3.5-5.2) L 09/01/23 15:56 Globulin 4.1 g/dL (1.3-4.6) 09/01/23 15:56 Lipase 132 U/L (13-60) H 09/01/23 15:56 All radiology interpretation(s) finalized by discharge Discharge Plan Discharge Patient Disposition: Home Clinical Impression: Pancreatitis, Rectal prolapse Abdominal ascites Qualifiers: Ascites type: due to alcoholic cirrhosis Qualified Code(s): K70.31 - Alcoholic cirrhosis of liver with ascites Liver cirrhosis Qualifiers: Hepatic cirrhosis type: unspecified hepatic cirrhosis Ascites presence: with ascites Qualified Code(s): K74.60 - Unspecified cirrhosis of liver Condition: Stable Prescriptions: New promethazine 25 mg tablet 25 mg PO Q6H PRN (Reason: nausea and vomiting) Qty: 20 0RF tramadol 50 mg tablet 50 mg PO Q6H PRN (Reason: pain) Qty: 20 0RF No Action thiamine mononitrate (vit B1) [Vitamin B-1 (mononitrate)] 100 mg tablet 100 mg PO DAILY Qty: 30 4RF rifaximin 550 mg tablet 550 mg PO BID Qty: 60 5RF (DME) diaper,brief,adult,disposable Misc See Rx Instructions .Route Qty: 60 5RF Rx Instructions: Will need at least 2 each day due to incontinence. (DME) Inogen Oxygen Concentrator See Rx Instructions .Route .MEDSUPPLY Qty: 1 0RF Rx Instructions: 2-3 L/O2 at all times to maintain oxygen sats >90%, due to chronic hypoxia and COPD. spironolactone 100 mg tablet 200 mg PO DAILY Qty: 90 1RF furosemide 80 mg tablet 80 mg PO DAILY Qty: 90 1RF Rx Instructions: TAKE 1 TABLET BY MOUTH EVERY DAY midodrine 2.5 mg tablet 5 mg PO TID 30 Days Qty: 180 3RF Rx Instructions: do not give last dose of day after 6PM or within 4 hrs of bedtime tiotropium bromide [Spiriva with HandiHaler] 18 mcg capsule, w/inhalation device See Rx Instructions .ROUTE .COMPLEX Qty: 30 3RF Dose Instruction: inhale contents of ONE capsule using device every morning Rx Instructions: inhale contents of ONE capsule using device every morning albuterol sulfate [Ventolin HFA] 90 mcg/actuation HFA aerosol inhaler See Rx Instructions .ROUTE .COMPLEX Qty: 18 2RF Dose Instruction: INHALE TWO PUFFS EVERY 6 HOURS NEEDED FOR SHORTNESS OF BREATH or wheezing Rx Instructions: INHALE TWO PUFFS EVERY 6 HOURS NEEDED FOR SHORTNESS OF BREATH or wheezing pregabalin [Lyrica] 25 mg capsule 25 mg PO TID Qty: 90 5RF acetaminophen [Tylenol Extra Strength] 500 mg Tablet 1,000 mg PO Q6H PRN (Reason: Pain) multivitamin Tablet 1 tab PO DAILY magnesium 250 mg Tablet 250 mg PO DAILY fluticasone propion-salmeterol [Advair Diskus] 250-50 mcg/dose blister with device 1 inh inhalation BID Rx Instructions: USE ONE inhalation TWICE DAILY potassium chloride 20 mEq tablet,ER particles/crystals 20 meq PO DAILY Rx Instructions: TAKE 1 TABLET BY MOUTH EVERY DAY WITH LASIX. pantoprazole 40 mg tablet,delayed release (DR/EC) 40 mg PO BID Rx Instructions: TAKE 1 TABLET BY MOUTH TWICE DAILY ondansetron 4 mg tablet,disintegrating 4 mg PO Q8H PRN (Reason: Nausea And Vomiting) Rx Instructions: DISSOLVE ONE TABLET BY MOUTH EVERY 8 HOURS NEEDED FOR NAUSEA AND VOMITING Discharge Orders: Discharge ED (Routine); Ordered 09/01/23 Ordered By: Saturnino Slaughter Referrals: Trenton Alas DO [Primary Care Provider] - Discharge Diet: Clear Liquid Discharge Activity: Limit activity as instructed Patient Instructions: Opioid Safety, Pain Management Activity Restrictions/Additional Instructions: Thank you for choosing [facility] for your healthcare needs today. Please realize this is an emergency room and that we are providing you with a medical screening exam and this may not be complete and all inclusive of all the testing and or work up that you may need to determine your ailment or severity of your illness. It is very important that you follow up as instructed or that you return to the Emergency Department should you have concerns or if your condition changes or worsens in any way. You were seen today with swollen abdomen. This was a result of ascites from your liver cirrhosis. You are also noted to be anemic which is chronic your lipase was elevated indicating acute pancreatitis your ammonia level was also elevated. We had recommended at very least observation you prefer to go home. We do recommend that you only have a clear liquid diet for the next 24 to 48 hours continue all of your other medications. You can use the tramadol for pain or promethazine as needed for nausea and vomiting. If your symptoms are worse or the pain is uncontrollable strongly encourage you to return to the emergency room to be reevaluated. Coding Level of Care Code ED Clinical Tech for Cathy Donald
--- NOTE | 2023-09-01 16:00 | US_ITS ---
WS: [id number] ULTRASOUND-GUIDED PARACENTESIS CLINICAL INFORMATION: Paracentesis alcoholic liver cirrhosis COMPARISON: None. Procedure Informed consent: The risks, benefits, and alternatives of the procedure were discussed with the eran ent. Verbal and written consent was obtained. Timeout: A timeout was performed to confirm the correct patient, procedure, and site. Preparation: A suitable skin site was identified. The patient was prepped and draped in usual sterile fashion. Lidocaine 1% was used for local anesthesia. Catheter: 4 Thai One-step Yueh catheter. Side: RIGHT lower quadrant. Fluid Volume: 3200 ml Color: Clear yellow DISPOSITION: Discarded safely. Complications: None. IMPRESSION: Uncomplicated ultrasound-guided paracentesis. Removal of 3200 cc
--- NOTE | 2023-09-01 16:02 | XRR_ITS ---
PROCEDURE INFORMATION: Exam: XR Chest Exam date and time: 09/01/2023 4:15 PM Age: 63 years old Clinical indication: Cough and dyspnea; Additional info: Dyspnea/cough TECHNIQUE: Imaging protocol: Radiologic exam of the chest. Views: 1 view. COMPARISON: [place] [id number] 07/19/2023 3:08 PM FINDINGS: Lungs: Round perihilar masses appreciated in the right upper lobe measuring 2.5 x 2.4 cm. Diffuse increase in interstitial markings. Pleural spaces: Unremarkable. No pleural effusion. No pneumothorax. Heart/Mediastinum: Unremarkable. No cardiomegaly. Bones/joints: Similar-appearing multiple wedge deformities of the thoracic spine XR/XR chest 1V portable [id number] IMPRESSION: 1. Redemonstrated right upper lobe perihilar mass measuring 2.5 x 2.4 cm on today's examination, similar to prior comparative cross-sectional examination on 07/19/2023. If there is concern for possible intrathoracic disease advancement, recommend cross-sectional evaluation. 2. Diffuse increase in interstitial markings, nonspecific. 3. Additional findings as above.
[2023-09-01 16:19] LABS: Basophils # 0.1 10^3/uL (0.0-0.1); Basophils % 0.9 %; Eosinophils % 0.4 %; Hematocrit 29.4 % (36-47); Lymphocytes # 2.2 10^3/uL (0.8-4.8); Lymphocytes % 21.1 %; Mean Corpuscular HGB Conc 33.7 g/dL (30-55); Mean Corpuscular Hemoglobin 32.4 pg (27-33); Mean Corpuscular Volume 96.1 fl (85-98); Mean Platelet Volume 9.2 fL (7.4-10.4); Monocytes # 1.3 10^3/uL (0.2-0.9); Monocytes % 12.8 %; Neutrophils # 6.71 10^3/uL (1.8-7.7); Neutrophils % 64.2 %; Nucleated Red Blood Cells % 0 %; Platelet Count 190 10^3/cmm (157-399); Red Blood Count 3.06 10^6/uL (3.85-5.65); Red Cell Distribution Width 21.4 % (12.1-15.1); White Blood Count 10.43 10^3/uL (3.29-11.43)
[2023-09-01 16:36] LABS: INR 1.15 (0.8-1.2); Partial Thromboplastin Time 37.3 SECONDS (23.9-36.7)
[2023-09-01 16:37] LABS: Alanine Aminotransferase 24 U/L (0-33); Albumin Level 3.1 g/dL (3.5-5.2); Alkaline Phosphatase 151 U/L (35-105); Blood Urea Nitrogen 17 mg/dL (8-23); Carbon Dioxide 16 mmol/L (22-29); Chloride 98 mmol/L (98-107); Creatinine Clr Calc Pharmacy 50.4382; Globulin 4.1 g/dL (1.3-4.6); Glomerular Filtration Rate 56.4 mL/min (90-130); Glucose 133 mg/dL (65-115); Lipase 132 U/L (13-60); Osmolality Calculated 269 mOsm/kg (285-295); Sodium 128 mmol/L (136-145); Total Bilirubin 1.3 mg/dL (0.15-1.2); Total Protein 7.2 g/dL (6.6-8.7)
[2023-09-01 16:41] LABS: Ammonia 97 umol/L (11-51)
[2023-09-01 16:54] VITALS: PULSE 130; RESP 20; O2SAT 96
[2023-09-01 17:00] LABS: Anion Gap 18.7 (5-19); Aspartate Amino Transferase 51 U/L (0-32); Potassium 4.7 mmol/L (3.5-5.1)
--- NOTE | 2023-09-01 17:33 | PC.NURSE ---
[address] Sierra placing a US guided parancentesis. Pt tolerated well.
[2023-09-01 18:09] VITALS: BP 118/56; PULSE 125; RESP 20; O2SAT 99
[2023-09-01] MEDS: morphine 4 mg/mL SDV 1 mL 2 MG IM (18:12)
== END 2023-09-01 18:15 | disposition home or self-care (01) ==
PROVIDERS: Emergency Provider Family Medicine; PCP Family Medicine
DX: K85.90 Acute pancreatitis without necrosis or infection, unspecified (principal); K62.3 Rectal prolapse; K70.31 Alcoholic cirrhosis of liver with ascites; J44.9 Chronic obstructive pulmonary disease, unspecified; Z86.19 Personal history of other infectious and parasitic diseases; F17.210 Nicotine dependence, cigarettes, uncomplicated
CPT/HCPCS: 49083; 71045; 80053; 82140; 83690; 85025; 85610; 85730; 96372; 99285; J2270

== ENCOUNTER 2023-10-08 16:59 | Emergency (ER) | payer MEDICAID, SELFPAY ==
[2023-10-08 17:03] VITALS: BP 126/68; PULSE 110; RESP 18; TEMP 36.8; O2SAT 93
--- NOTE | 2023-10-08 17:26 | ED_ITS ---
HPI - Abdominal Pain General: Chief Complaint: Abdominal Pain Stated Complaint: Paracentesis Time Seen by Provider: 10/08/23 17:03 Source: patient and EMS Mode of arrival: EMS Limitations: no limitations History of Present Illness: 63-year-old female has a history of cirr hosis who is currently on hospice patient states that she has had increased swelling to her abdomen with pain. She is on hospice for cirrhosis she has ascites she had had paracenteses in the past. Denies any fever denies any worse improved factors. Associated Symptoms: Denies chills, diarrhea, dysuria, fever(s), nausea and vomiting Review of Systems Const: Denies: fever(s), chills, body aches or change in appetite ENMT: Denies: throat pain or dental pain Card: Denies: chest pain Resp: Denies: dyspnea GI: Reports: abdominal pain; Denies: nausea, vomiting or diarrhea : Denies: dysuria Musc: Denies: neck pain or back pain Skin/Breast: Denies: rash Neuro: Denies: headache(s) PFSH ED PFSH: Medical History COPD (chronic obstructive pulmonary disease) Anemia Liver cirrhosis Alcoholism Hepatitis C COPD (chronic obstructive pulmonary disease) Surgical History History of hysterectomy Family History Mother Lung cancer Father Hyperthermia Social History Smoking and tobacco/nicotine status: current every day tobacco/nicotine user cigarettes Alcohol intake: current Alcohol intake frequency: few times a week Substance/Drug Use: current Substance/Drug use frequency: daily Female Reproductive History: Spontaneous abortions: No Physical Exam Const: COMMON NORMALS: patient oriented x3 HENMT: COMMON NORMALS: normocephalic and atraumatic HEAD & SCALP: normoceph alic and atraumatic Neck/C-Spine: COMMON NORMALS: full ROM and supple Chest: COMMONS NORMALS: normal inspection of the chest Resp: COMMON NORMALS: normal respiratory effort Cardio: COMMON NORMALS: regular rate, regular rhythm and No murmurs present (Cardio) RATE: regular rate RHYTHM: regular rhythm GI: OTHER: Distended abdomen Extremity: COMMON NORMALS: normal to inspection and full ROM Neuro: COMMON NORMALS: patient oriented x3, moves all extremities and no focal motor deficits Psych: COMMON NORMALS: mental status grossly normal, Normal thought process present and cooperative THOUGHT PROCESS: Normal thought process present Skin: COMMON NORMALS: no rashes or lesions noted and no wounds GENERAL SKIN EXAM: no rashes or lesions noted Course Vital Signs: Vital signs: Vital Signs Temperature 98.2 F 10/08/23 17:03 Pulse Rate 110 H 10/08/23 17:03 Respiratory Rate 18 10/08/23 17:37 Blood Pressure 126/68 10/08/23 17:03 Pulse Oximetry 93 10/08/23 17:37 Oxygen Delivery Me thod Room Air 10/08/23 17:03 MDM - Abdominal Pain Medical Decision Making Patient presents here with abdominal pain from chronic ascites and cirrhosis she is on hospice does not want any treatment we will set her up for a paracentesis for comfort. Medical Records I reviewed the patient's medical records. No radiology studies performed this visit Discharge Plan Discharge Patient Disposition: Home Clinical Impression: Chronic abdominal pain Abdominal ascites Qualifiers: Ascites type: due to alcoholic cirrhosis Qualified Code(s): K70.31 - Alcoholic cirrhosis of liver with ascites Liver cirrhosis Qualifiers: Hepatic cirrhosis type: unspecified hepatic cirrhosis Ascites presence: with ascites Qualified Code(s): K74.60 - Unspecified cirrhosis of liver Condition: Stable Prescriptions: No Action thiamine mononitrate (vit B1) [Vitamin B-1 (mononitrate)] 100 mg tablet 100 mg PO DAILY Qty: 30 4RF rifaximin 550 mg tablet 550 mg PO BID Qty: 60 5RF (DME) diaper,brief,adult,disposable Misc See Rx Instructions .Route Qty: 60 5RF Rx Instructions: Will need at least 2 each day due to incontinence. (DME) Inogen Oxygen Concentrator See Rx Instructions .Route .MEDSUPPLY Qty: 1 0RF Rx Instructions: 2-3 L/O2 at all times to maintain oxygen sats >90%, due to chronic hypoxia and COPD. spironolactone 100 mg tablet 200 mg PO DAILY Qty: 90 1RF furosemide 80 mg tablet 80 mg PO DAILY Qty: 90 1RF Rx Instructions: TAKE 1 TABLET BY MOUTH EVERY DAY midodrine 2.5 mg tablet 5 mg PO TID 30 Days Qty: 180 3RF Rx Instructions: do not give last dose of day after 6PM or within 4 hrs of bedtime tiotropium bromide [Spiriva with HandiHaler] 18 mcg capsule, w/inhalation device See Rx Instructions .ROUTE .COMPLEX Qty: 30 3RF Dose Instruction: inhale contents of ONE capsule using device every morning Rx Instructions: inhale contents of ONE capsule using device every morning albuterol sulfate [Ventolin HFA] 90 mcg/actuation HFA aerosol inhaler See Rx Instructions .ROUTE .COMPLEX Qty: 18 2RF Dose Instruction: INHALE TWO PUFFS EVERY 6 HOURS NEEDED FOR SHORTNESS OF BREATH or wheezing Rx Instructions: INHALE TWO PUFFS EVERY 6 HOURS NEEDED FOR SHORTNESS OF BREATH or wheezing pregabalin [Lyrica] 25 mg capsule 25 mg PO TID Qty: 90 5RF pantoprazole 40 mg tablet,delayed release (DR/EC) See Rx Instructions .ROUTE .COMPLEX Qty: 60 3RF Dose Instruction: TAKE 1 TABLET BY MOUTH TWICE DAILY Rx Instructions: TAKE 1 TABLET BY MOUTH TWICE DAILY oxycodone 5 mg tablet 5 mg PO TID PRN (Reason: pain) 30 Days Qty: 90 0RF acetaminophen [Tylenol Extra Strength] 500 mg Tablet 1,000 mg PO Q6H PRN (Reason: Pain) multivitamin Tablet 1 tab PO DAILY magnesium 250 mg Tablet 250 mg PO DAILY fluticasone propion-salmeterol [Advair Diskus] 250-50 mcg/dose blister with device 1 inh inhalation BID Rx Instructions: USE ONE inhalation TWICE DAILY potassium chloride 20 mEq tablet,ER particles/crystals 20 meq PO DAILY Rx Instructions: TAKE 1 TABLET BY MOUTH EVERY DAY WITH LASIX. ondansetron 4 mg tablet,disintegrating 4 mg PO Q8H PRN (Reason: Nausea And Vomiting) Rx Instructions: DISSOLVE ONE TABLET BY MOUTH EVERY 8 HOURS NEEDED FOR NAUSEA AND VOMITING promethazine 25 mg tablet 25 mg PO Q6H PRN (Reason: nausea and vomiting) Qty: 20 0RF tramadol 50 mg tablet 50 mg PO Q6H PRN (Reason: pain) Qty: 20 0RF Discharge Orders: Discharge ED (Routine); Ordered 10/08/23 Ordered By: Radha Youngblood Referrals: [place] W, DO [Primary Care Provider] - 1-3 days Discharge Diet: Advance as tolerated Discharge Activity: Resume usual activity Patient Instructions: Abdominal Pain (ED) Coding Level of Care Code ED Director Of [employer] for Cathy Donald
[2023-10-08 17:37] VITALS: RESP 18; O2SAT 93
[2023-10-08] MEDS: HYDROmorphone 1 mg/mL INJ 1 mL IM (17:37)
== END 2023-10-08 18:10 | disposition home or self-care (01) ==
PROVIDERS: Emergency Provider Emergency Medicine; PCP Family Medicine
DX: K70.31 Alcoholic cirrhosis of liver with ascites (principal); G89.29 Other chronic pain; R10.9 Unspecified abdominal pain; J44.9 Chronic obstructive pulmonary disease, unspecified; Z86.19 Personal history of other infectious and parasitic diseases; F17.210 Nicotine dependence, cigarettes, uncomplicated
CPT/HCPCS: 96372; 99284; J1170

== ENCOUNTER → 2023-10-13 10:26 | Day surgery (SDC) | payer MEDICAID, SELFPAY ==
--- NOTE | 2023-10-13 10:40 | US_ITS ---
WS: [id number] ULTRASOUND-GUIDED PARACENTESIS CLINICAL INFORMATION: ascites/cirrhosis COMPARISON: None. Procedure Informed consent: The risks, benefits, and alternatives of the procedure were discussed with the eran ent. Verbal and written consent was obtained. Timeout: A timeout was performed to confirm the correct patient, procedure, and site. Preparation: A suitable skin site was identified. The patient was prepped and draped in usual sterile fashion. Lidocaine 1% was used for local anesthesia. Catheter: 4 Israeli One-step Yueh catheter. Side: LEFT lower quadrant. Fluid Volume: 10,000 ml Color: Clear yellow DISPOSITION: Discarded safely. Complications: None. Patient disposition: Discharged from the department in stable condition. US/US paracentesis [id number] IMPRESSION: Uncomplicated ultrasound-guided paracentesis. Removal of 10,000 cc
[2023-10-13 10:50] VITALS: BP 144/77; PULSE 105; RESP 18; TEMP 36.4; O2SAT 94; BMI 27.3
== END ==
LOC: GILAB 10:31
PROVIDERS: Radiology Neuroradiology; PCP Family Medicine; Visit Provider Emergency Medicine
PROC: (CPT 49082; principal; 2023-10-13 11:30)
DX: R18.8 Other ascites (principal); K74.60 Unspecified cirrhosis of liver
CPT/HCPCS: 49083